=== PATIENT | male | born 1965 | race Caucasian/White ===

== ENCOUNTER 2020-11-24 10:26 | Outpatient (REF) | payer SELFPAY ==
[2020-11-24 12:47] LABS: Cholesterol 215 mg/dL; HDL Cholesterol 55 mg/dL; LDL Cholesterol Calculated 139 mg/dl; Triglycerides 108 mg/dL
== END 2020-11-24 10:27 | disposition home or self-care (01) ==
LOC: HO.LNP 10:26
PROVIDERS: Visit Provider Internal Medicine
DX: E78.6 Lipoprotein deficiency (principal)
CPT/HCPCS: 80061

== ENCOUNTER 2021-05-07 06:32 | Day surgery (SDC) | payer OTHER, SELFPAY ==
[2021-05-03 14:09] VITALS: BMI 29.5
--- NOTE | 2021-05-06 09:49 | P.CONAN_ITS ---
Documented by User: Karmen Rodriguez NP 05/06/21 09:49 HPI - Anesthesia Eval Consult details Narrative: 55yo M for Colonoscopy [facility] Past Medical History Medical History (Updated 05/03/21 @ 13:55 by Sarah Tierney RN) Family history of colon cancer Surgical History Surgical History (Updated 05/03/21 @ 13:54 by Sarah Tierney RN) H/O colonoscopy Social History Social History Patient Tobacco Use Status: Never used Tobacco Use of substances other than those prescribed or required for medical reasons: No Have you been hit, kicked, punched, or otherwise hurt by someone within the past year? If so, by whom?: No Are you DNR?: No Advance Directives: No Advance Directives Information Provided: Yes (informational brochure mailed) Advance Directives on File: No Recently lost weight without trying: No Nutrition Risks: No Nutritional Risk Poor oral hygiene: No Meds Allergies Allergy/AdvReac Type Severity Reaction Status Date / Time shellfish derived Allergy Severe Hives Verified 05/03/21 14:09 tree nut Allergy Severe Anaphylaxis Verified 05/03/21 14:08 Home Medications Medication Instructions Recorded Confirmed Last Taken Type No Known Home Meds 05/03/21 05/03/21 Unknown History Exam Exam Date and Time: May 06, 2021 0949 Height,Weight and Vital Signs: Height 5 ft 8.5 in Weight 89.358 kg Assessment and Plan Assessment Anesthesia Assessment: Chart Reviewed Documented by User: Corrie Kincaid MD 05/07/21 07:00 [facility] Past Medical History Medical History (Updated 05/03/21 @ 13:55 by Sarah Tierney RN) Family history of colon cancer Family History Family history of problems with anesthesia: No Surgical History Surgical History (Updated 05/03/21 @ 13:54 by Sarah Tierney RN) H/O colonoscopy History of Problems with Anesthesia: No Social History Social History Patient Tobacco Use Status: Never used Tobacco Use of substances other than those prescribed or required for medical reasons: No Have you been hit, kicked, punched, or otherwise hurt by someone within the past year? If so, by whom?: No Are you DNR?: No Advance Directives: No Advance Directives Information Provided: Yes (informational brochure mailed) Advance Directives on File: No Recently lost weight without trying: No Nutrition Risks: No Nutritional Risk Poor oral hygiene: No Meds Allergies Allergy/AdvReac Type Severity Reaction Status Date / Time shellfish derived Allergy Severe Hives Verified 05/03/21 14:09 tree nut Allergy Severe Anaphylaxis Verified 05/03/21 14:08 Home Medications Medication Instructions Recorded Confirmed Last Taken Type No Known Home Meds 05/03/21 05/03/21 Unknown History Exam Airway Mallampati Class: II TM Dist: >3cm Neck ROM: Full Heart: rrr Lungs: cta Assessment and Plan Assessment Anesthesia Assessment: Anesthesia Plan Discussed and Chart Reviewed Final Anesthetic Review Family History of Problems with Anesthesia: No History of Problems with Anesthesia: No NPO: Yes ASA Class: II Final Preanesthetic Review: No Changes in Pt Med Stat, Meds/Allgs Chart Reviewed and Consent Obtained/Reviewed Patient Risk: Intermediate Procedure Risk: Intermediate Anesthetic Plan Anesthetic Plan: MAC: Disposition: Standard PACU
[2021-05-07 06:50] VITALS: PULSE 69; RESP 18; TEMP 36.7; O2SAT 96
[2021-05-07] MEDS: Lactated Ringers 1,000 ML 100 ML IVCONT (07:05)
[2021-05-07 08:28] VITALS: BP 112/71; PULSE 74; RESP 16; TEMP 36.3; O2SAT 96
--- NOTE | 2021-05-07 08:33 | P.BOP_ITS ---
Brief Operative Note Date of Service: 05/07/21 Pre-op diagnosis: Screening Post-op diagnosis: other (Colon polyps) Procedure: Colonoscopy to cecum and TI with hot snare and cold snare polypectomies Surgeon: Bryce Bower Anesthesia: MAC Was an Sewing Machine Operator Plastic Zipper used for this Procedure?: No Estimated blood loss (mL): 2.0 Pathology: other (A. Ascending colon polyps) Condition: stable Disposition: PACU
[2021-05-07 08:45] VITALS: BP 120/74; PULSE 72; RESP 16; TEMP 36.3; O2SAT 96
--- NOTE | 2021-05-07 09:09 | OP_ITS ---
SURGEON: Bryce Bower MD INDICATIONS: The patient presents for evaluation of colorectal cancer screening, family history of colon cancer, and personal history of tubular adenoma of the colon. Full consent has been obtained from him for this, including risks of bleeding and perforation. PREOPERATIVE DIAGNOSIS: POSTOPERATIVE DIAGNOSIS: PROCEDURE PERFORMED: ESTIMATED BLOOD LOSS: COMPLICATIONS: ANESTHESIA: Medication used, monitored anesthesia care. ASSISTANTS: SPECIMENS: PREOPERATIVE DIAGNOSES: Colorectal cancer screening, family history of colon cancer, personal history of tubular adenoma of the colon. POSTOPERATIVE DIAGNOSES: Colorectal cancer screening, family history of colon cancer, personal history of tubular adenoma of the colon, colon polyps, mild sigmoid diverticulosis, small internal hemorrhoids. PROCEDURES PERFORMED: Colonoscopy to the cecum and terminal ileum with snare polypectomy. DESCRIPTION OF PROCEDURE: The patient was placed in the left lateral decubitus position. The digital rectal exam revealed no abnormalities. The EpiVax video pediatric colonoscope was entered into the rectum and advanced easily to the cecum. Once in the cecum, I did identify normal-appearing cecal pouch with appendiceal orifice and a normal-appearing ileocecal valve. The terminal ileum was cannulated and appeared normal. Scope was withdrawn back in the colon. The entire cecum and ileocecal valve appeared normal. The scope was slowly withdrawn assessing all mucosal surfaces carefully. Preparation was excellent. In the proximal ascending colon was a flat approximately 5 mm grossly adenomatous polyp, which was snared and removed with cold snare. Post polypectomy, there was no sign of any residual polyp nor bleeding. Just distal to this on a fold was an approximately 10 to 12 mm polyp, which may have been a serrated polyp given its gross appearance. This was removed entirely in piecemeal fashion with a hot snare polypectomy. Post polypectomy, there was no sign of any residual polyp nor bleeding. All pieces were recovered by suction and placed in the same container as the previous polyp. I did not visualize any other polyps, colitis, nor angiodysplasia. There was a mild amount of sigmoid diverticulosis. In the rectum, scope was retroflexed visualizing internal hemorrhoids, but no other pathology. The rectal mucosa appeared normal. The scope was straightened and withdrawn from the patient. He tolerated the procedure well and was returned to the recovery area in stable condition. IMPRESSION: 1. Colon polyps, status post snare polypectomy. 2. Mild sigmoid diverticulosis. 3. Small internal hemorrhoids. PLAN: Results of the pathology will be checked. If the larger polyp is a serrated polyp or adenomatous polyp, I would then recommend a repeat colonoscopy within 3 years. If the larger polyp is only hyperplastic tissue, I would then recommend a repeat colonoscopy in 5 years. He was advised not to use any aspirin and NSAIDs for 1 week. MD JUDITH Prieto/YASIR / [id number]
== END 2021-05-07 09:19 | disposition home or self-care (01) ==
PROVIDERS: PCP Internal Medicine; Visit Provider Internal Medicine
PROC: 0DJD8ZZ Inspection of Lower Intestinal Tract, Via Natural or Artificial Opening Endoscopic (ICD-10-PCS; CPT 45378; principal; 2021-05-07 07:30)
DX: Z12.11 Encounter for screening for malignant neoplasm of colon (principal); Z80.0 Family history of malignant neoplasm of digestive organs; Z86.010 Personal history of colon polyps; D12.2 Benign neoplasm of ascending colon; K57.30 Diverticulosis of large intestine without perforation or abscess without bleeding; K64.8 Other hemorrhoids
CPT/HCPCS: 45385; 88305

== ENCOUNTER 2021-05-25 10:23 | Outpatient (REF) | payer OTHER, SELFPAY ==
[2021-05-25 10:28] LABS: MANUAL DIFF FLAG NO
[2021-05-25 10:58] LABS: Imm Gran Abs Auto 0.02 X10*3/uL (0.00-0.03); Imm Gran Pct Auto 0.3 % (0.0-0.4); Mean Platelet Volume 11.9 fL (9.4-12.4)
[2021-05-25 11:03] LABS: Appearance Urine CLEAR; Color Urine YELLOW; Glucose Urine UA NEG (NEG); Leukocyte Esterase Urine NEG (NEG); Nitrite Urine NEG (NEG); PH 5.5 (5.0-8.0); Specific Gravity - Urine 1.025 (1.005-1.025); Urine Blood NEG (NEG); Urine Ketones >=80 MG/DL (NEG); Urine Protein TRACE MG/DL (NEG-TRACE)
[2021-05-25 11:09] LABS: Basophils Absolute Auto 0.1 X10*3/uL (0.0-0.2); Basophils Percent Auto 0.8 % (0-2); Eosinophils Absolute Auto 0.3 X10*3/uL (0.0-0.4); Eosinophils Percent Auto 3.3 % (0-4); Lymphocytes Absolute Auto 2.6 X10*3/uL (1.2-4.9); Mean Corpuscular HGB Conc 31.8 g/dl (31.0-36.0); Mean Corpuscular Hemoglobin 27.2 pg (27.0-33.0); Mean Corpuscular Volume 85.6 fL (80.0-98.0); Monocytes Percent Auto 12.7 % (2-11); Neutrophils Absolute Auto 3.7 x10*3/uL (2.0-8.3); Neutrophils Percent Auto 48.9 % (45-73); Platelet Count 215 X10*3/uL (160-400); Red Blood Count 5.14 X10*6/uL (4.60-5.80); Red Cell Distribution Width 14.4 % (11.0-16.0); White Blood Count 7.6 X10*3/uL (4.8-10.8)
[2021-05-25 11:37] LABS: Alanine Aminotransferase 12 U/L (0-40); Albumin Level 4.2 g/dL (3.5-5.0); Alkaline Phosphatase 59 U/L (39-117); Anion Gap 17 (12-20); Aspartate Amino Transferase 11 U/L (5-37); Bilirubin Total 0.8 mg/dL (0.0-1.0); Blood Urea Nitrogen 17 mg/dL (9-16); Calcium 8.9 mg/dL (8.4-10.2); Carbon Dioxide 23 mmol/L (22-29); Chloride 106 mmol/L (96-108); Cholesterol 279 mg/dL; Estimated Glomerular Filt Rate 57; Glucose Fasting 101 mg/dL (60-99); HDL Cholesterol 46 mg/dL; LDL Cholesterol Calculated 211 mg/dl; Potassium 3.8 mmol/L (3.3-5.1); Sodium 142 mmol/L (135-145); Total Protein 6.9 g/dL (6.5-8.0); Triglycerides 113 mg/dL
[2021-05-25 12:04] LABS: PSA,Total (Free>4and<10) 1.38 ng/mL (0.00-4.00)
[2021-05-25 13:47] LABS: Reflex LDLD? No
== END 2021-05-25 10:24 | disposition home or self-care (01) ==
LOC: HO.LNP 10:23
PROVIDERS: PCP Internal Medicine; Visit Provider Internal Medicine
DX: Z00.00 Encounter for general adult medical examination without abnormal findings (principal); R73.09 Other abnormal glucose; E78.6 Lipoprotein deficiency
CPT/HCPCS: 80053; 80061; 81003; 84153; 85025

== ENCOUNTER 2021-08-31 10:48 | Outpatient (REF) | payer OTHER, SELFPAY ==
[2021-08-31 12:01] LABS: Cholesterol 313 mg/dL; HDL Cholesterol 53 mg/dL; LDL Cholesterol Calculated 236 mg/dl; Triglycerides 124 mg/dL
== END 2021-08-31 10:49 | disposition home or self-care (01) ==
LOC: HO.LNP 10:48
PROVIDERS: PCP Internal Medicine; Visit Provider Internal Medicine
DX: E78.6 Lipoprotein deficiency (principal)
CPT/HCPCS: 80061

== ENCOUNTER 2022-06-02 10:55 | Outpatient (REF) | payer OTHER, SELFPAY ==
[2022-06-02 11:00] LABS: MANUAL DIFF FLAG NO
[2022-06-02 11:07] LABS: Basophils Absolute Auto 0.1 X10*3/uL (0.0-0.2); Basophils Percent Auto 0.7 % (0-2); Eosinophils Absolute Auto 0.4 X10*3/uL (0.0-0.4); Eosinophils Percent Auto 4.8 % (0-4); Hematocrit 44.8 % (42.0-52.0); Hemoglobin 13.9 g/dl (14.0-18.0); Imm Gran Abs Auto 0.01 X10*3/uL (0.00-0.03); Imm Gran Pct Auto 0.1 % (0.0-0.4); Lymphocytes Absolute Auto 2.9 X10*3/uL (1.2-4.9); Mean Corpuscular Hemoglobin 26.6 pg (27.0-33.0); Mean Corpuscular Volume 85.7 fL (80.0-98.0); Mean Platelet Volume 11.1 fL (9.4-12.4); Neutrophils Percent Auto 47.4 % (45-73); Platelet Count 203 X10*3/uL (160-400); Red Blood Count 5.23 X10*6/uL (4.60-5.80); Red Cell Distribution Width 14.3 % (11.0-16.0); White Blood Count 8.4 X10*3/uL (4.8-10.8)
[2022-06-02 11:13] LABS: Appearance Urine Clear; Color Urine Yellow; Glucose Urine UA Negative (Negative); Leukocyte Esterase Urine Negative (Negative); Nitrite Urine Negative (Negative); PH 5.5 (5.0-9.0); Urine Blood Negative (Negative); Urine Ketones Negative (Negative); Urine Protein Negative (Neg-Trace)
[2022-06-02 11:18] LABS: Alanine Aminotransferase 28 U/L (0-40); Alkaline Phosphatase 72 U/L (39-117); Anion Gap 12 (12-20); Aspartate Amino Transferase 17 U/L (5-37); Bacteria Urine None Seen (None Seen); Bilirubin Total 0.5 mg/dL (0.0-1.0); Blood Urea Nitrogen 18 mg/dL (9-16); Calcium 8.9 mg/dL (8.4-10.2); Carbon Dioxide 28 mmol/L (22-29); Chloride 107 mmol/L (96-108); Cholesterol 169 mg/dL; Estimated Glomerular Filt Rate 57; Glucose Fasting 115 mg/dL (60-99); HDL Cholesterol 55 mg/dL; Hyaline Casts Urine 0-2 /LPF (0-2); LDL Cholesterol Calculated 99 mg/dl; Potassium 3.9 mmol/L (3.3-5.1); RBC Urine 0-2 /HPF (0-2); Sodium 143 mmol/L (135-145); Squamous Epithelial Cell Urine 0-2 /HPF (0-2); Total Protein 6.6 g/dL (6.5-8.0); Triglycerides 76 mg/dL; WBC Urine 0-5 /HPF (0-5)
[2022-06-02 11:38] LABS: PSA,Total (Free>4and<10) 1.15 ng/mL (0.00-4.00)
== END 2022-06-02 10:56 | disposition home or self-care (01) ==
LOC: HO.LNP 10:55
PROVIDERS: Visit Provider Internal Medicine
DX: Z00.00 Encounter for general adult medical examination without abnormal findings (principal); Z12.5 Encounter for screening for malignant neoplasm of prostate
CPT/HCPCS: 80053; 80061; 81001; 84153; 85025

== ENCOUNTER 2023-07-06 11:01 | Outpatient (REF) | payer OTHER, SELFPAY ==
[2023-07-06 11:05] LABS: MANUAL DIFF FLAG NO
[2023-07-06 12:11] LABS: Basophils Absolute Auto 0.1 X10*3/uL (0.0-0.2); Basophils Percent Auto 0.9 % (0-2); Eosinophils Absolute Auto 0.3 X10*3/uL (0.0-0.4); Eosinophils Percent Auto 3.7 % (0-4); Hematocrit 46.1 % (42.0-52.0); Hemoglobin 14.8 g/dl (14.0-18.0); Imm Gran Abs Auto 0.02 X10*3/uL (0.00-0.03); Imm Gran Pct Auto 0.3 % (0.0-0.4); Lymphocytes Percent Auto 37.8 % (20-40); Mean Corpuscular HGB Conc 32.1 g/dl (31.0-36.0); Mean Corpuscular Hemoglobin 27.5 pg (27.0-33.0); Mean Corpuscular Volume 85.5 fL (80.0-98.0); Mean Platelet Volume 11.8 fL (9.4-12.4); Monocytes Absolute Auto 0.8 X10*3/uL (0.1-1.2); Monocytes Percent Auto 9.6 % (2-11); Neutrophils Absolute Auto 3.7 x10*3/uL (2.0-8.3); Neutrophils Percent Auto 47.7 % (45-73); Platelet Count 219 X10*3/uL (160-400); Red Blood Count 5.39 X10*6/uL (4.60-5.80); Red Cell Distribution Width 13.9 % (11.0-16.0); White Blood Count 7.8 X10*3/uL (4.8-10.8)
[2023-07-06 12:35] LABS: Alanine Aminotransferase 6 U/L (0-40); Albumin Level 4.4 g/dL (3.5-5.0); Alkaline Phosphatase 70 U/L (39-117); Anion Gap 21 (12-20); Aspartate Amino Transferase 13 U/L (5-37); Bilirubin Total 0.7 mg/dL (0.0-1.0); Blood Urea Nitrogen 11 mg/dL (9-16); Calcium 9.6 mg/dL (8.4-10.2); Carbon Dioxide 22 mmol/L (22-29); Chloride 102 mmol/L (96-108); Cholesterol 239 mg/dL (<200); Estimated Glomerular Filt Rate 52; Glucose Random 103 mg/dL (60-115); HDL Cholesterol 39 mg/dL (>40); LDL Cholesterol Calculated 168 mg/dL (<100); Potassium 3.5 mmol/L (3.3-5.1); Sodium 141 mmol/L (135-145); Total Protein 7.7 g/dL (6.5-8.0); Triglycerides 161 mg/dL (<150)
[2023-07-06 12:44] LABS: PSA,Total (Free>4and<10) 2.63 ng/mL (0.00-4.00)
[2023-07-06 12:50] LABS: Appearance Urine Clear; Color Urine Dark Yellow; Glucose Urine UA Negative (Negative); Leukocyte Esterase Urine Negative (Negative); Nitrite Urine Negative (Negative); Specific Gravity - Urine 1.025 (1.005-1.025); UMIC TRIGGER UACC YES; Urine Blood Negative (Negative); Urine Ketones >=160 mg/dL (Negative); Urine Protein 30 (1+) mg/dL (Neg-Trace)
[2023-07-06 13:16] LABS: Bacteria Urine None Seen (None Seen); Granular Casts Urine Present; Squamous Epithelial Cell Urine 0-2 /HPF (0-2); WBC Urine 0-5 /HPF (0-5)
== END 2023-07-06 11:02 | disposition home or self-care (01) ==
LOC: HO.LNP 11:01
PROVIDERS: Visit Provider Internal Medicine
DX: Z00.00 Encounter for general adult medical examination without abnormal findings (principal); Z12.5 Encounter for screening for malignant neoplasm of prostate; E78.6 Lipoprotein deficiency
CPT/HCPCS: 80053; 80061; 81001; 84153; 85025

== ENCOUNTER 2023-08-21 11:26 | Outpatient (REF) | payer OTHER, SELFPAY ==
[2023-08-21 11:54] LABS: Appearance Urine Clear; Color Urine Yellow; Glucose Urine UA Negative (Negative); Leukocyte Esterase Urine Negative (Negative); Nitrite Urine Negative (Negative); Urine Blood Negative (Negative); Urine Ketones Negative (Negative); Urine Protein Negative (Neg-Trace)
[2023-08-21 12:00] LABS: Bacteria Urine None Seen (None Seen); Hyaline Casts Urine 0-2 /LPF (0-2); RBC Urine 0-2 /HPF (0-2); Squamous Epithelial Cell Urine 0-2 /HPF (0-2); WBC Urine 0-5 /HPF (0-5)
[2023-08-21 12:11] LABS: Cholesterol 162 mg/dL (<200); HDL Cholesterol 48 mg/dL (>40); LDL Cholesterol Calculated 80 mg/dL (<100); Triglycerides 171 mg/dL (<150)
[2023-08-21 12:22] LABS: PSA,Total (Free>4and<10) 2.92 ng/mL (0.00-4.00)
== END 2023-08-21 11:27 | disposition home or self-care (01) ==
LOC: HO.LNP 11:26
PROVIDERS: Visit Provider Internal Medicine
DX: Z12.5 Encounter for screening for malignant neoplasm of prostate (principal); R97.20 Elevated prostate specific antigen [PSA]; E78.6 Lipoprotein deficiency; R31.29 Other microscopic hematuria
CPT/HCPCS: 80061; 81001; 84153

== ENCOUNTER 2023-09-18 11:23 | Outpatient (REF) | payer OTHER, SELFPAY ==
[2023-09-18 12:12] LABS: PSA,Total (Free>4and<10) 2.01 ng/mL (0.00-4.00)
== END 2023-09-18 11:24 | disposition home or self-care (01) ==
LOC: HO.LNP 11:23
PROVIDERS: Visit Provider Internal Medicine
DX: Z12.5 Encounter for screening for malignant neoplasm of prostate (principal); R97.20 Elevated prostate specific antigen [PSA]
CPT/HCPCS: 84153

== ENCOUNTER 2024-04-18 10:44 | Outpatient (REF) | payer OTHER, SELFPAY ==
[2024-04-18 12:51] LABS: PSA,Total (Free>4and<10) 2.35 ng/mL (0.00-4.00)
== END 2024-04-18 10:45 | disposition home or self-care (01) ==
LOC: HO.LNP 10:44
PROVIDERS: Visit Provider Internal Medicine
DX: R97.20 Elevated prostate specific antigen [PSA] (principal); Z12.5 Encounter for screening for malignant neoplasm of prostate
CPT/HCPCS: 84153

== ENCOUNTER 2024-07-05 12:32 | Outpatient (REF) | payer OTHER, SELFPAY ==
[2024-07-05 12:34] LABS: MANUAL DIFF FLAG NO
[2024-07-05 12:54] LABS: Basophils Absolute Auto 0.1 X10*3/uL (0.0-0.2); Basophils Percent Auto 0.7 % (0-2); Eosinophils Absolute Auto 0.2 X10*3/uL (0.0-0.4); Eosinophils Percent Auto 2.4 % (0-4); Hematocrit 47.5 % (42.0-52.0); Hemoglobin 14.8 g/dl (14.0-18.0); Imm Gran Abs Auto 0.03 X10*3/uL (0.00-0.03); Imm Gran Pct Auto 0.4 % (0.0-0.4); Lymphocytes Absolute Auto 2.3 X10*3/uL (1.2-4.9); Lymphocytes Percent Auto 31.4 % (20-40); Mean Corpuscular HGB Conc 31.2 g/dl (31.0-36.0); Mean Corpuscular Hemoglobin 26.6 pg (27.0-33.0); Mean Corpuscular Volume 85.4 fL (80.0-98.0); Mean Platelet Volume 11.5 fL (9.4-12.4); Monocytes Percent Auto 13.3 % (2-11); Neutrophils Absolute Auto 3.8 x10*3/uL (2.0-8.3); Neutrophils Percent Auto 51.8 % (45-73); Platelet Count 223 X10*3/uL (160-400); Red Blood Count 5.56 X10*6/uL (4.60-5.80); Red Cell Distribution Width 14.2 % (11.0-16.0); White Blood Count 7.4 X10*3/uL (4.8-10.8)
[2024-07-05 13:29] LABS: Appearance Urine Cloudy; Color Urine Dark Yellow; Glucose Urine UA Negative (Negative); Leukocyte Esterase Urine Negative (Negative); Nitrite Urine Negative (Negative); PH 5.5 (5.0-9.0); Specific Gravity - Urine 1.025 (1.005-1.025); UMIC TRIGGER UACC YES; Urine Blood Negative (Negative); Urine Ketones 40 mg/dL (Negative); Urine Protein 30 (1+) mg/dL (Neg-Trace)
[2024-07-05 13:37] LABS: Bacteria Urine None Seen (None Seen); Hyaline Casts Urine 0-2 /LPF (0-2); RBC Urine 0-2 /HPF (0-2); Squamous Epithelial Cell Urine 0-2 /HPF (0-2); WBC Urine 0-5 /HPF (0-5)
[2024-07-05 13:38] LABS: Alanine Aminotransferase 12 U/L (0-40); Albumin Level 4.2 g/dL (3.5-5.0); Alkaline Phosphatase 75 U/L (39-117); Anion Gap 17 (12-20); Aspartate Amino Transferase 17 U/L (5-37); Bilirubin Total 0.9 mg/dL (0.0-1.0); Blood Urea Nitrogen 15 mg/dL (9-16); Carbon Dioxide 24 mmol/L (22-29); Chloride 105 mmol/L (96-108); Cholesterol 241 mg/dL (<200); Estimated Glomerular Filt Rate 55; Glucose Fasting 104 mg/dL (60-99); HDL Cholesterol 48 mg/dL (>40); LDL Cholesterol Calculated 168 mg/dL (<100); Potassium 3.8 mmol/L (3.3-5.1); Sodium 142 mmol/L (135-145); Total Protein 7.4 g/dL (6.5-8.0); Triglycerides 125 mg/dL (<150)
[2024-07-05 13:59] LABS: PSA,Total (Free>4and<10) 3.37 ng/mL (0.00-4.00)
== END 2024-07-05 12:33 | disposition home or self-care (01) ==
LOC: HO.LNP 12:32
PROVIDERS: Visit Provider Internal Medicine
DX: Z00.00 Encounter for general adult medical examination without abnormal findings (principal); Z12.5 Encounter for screening for malignant neoplasm of prostate
CPT/HCPCS: 80053; 80061; 81001; 84153; 85025

== ENCOUNTER 2024-07-22 15:14 | Outpatient (REF) | payer OTHER, SELFPAY ==
[2024-07-22 15:35] LABS: Cholesterol 185 mg/dL (<200); HDL Cholesterol 39 mg/dL (>40); LDL Cholesterol Calculated 123 mg/dL (<100); Triglycerides 118 mg/dL (<150)
--- OUTSIDE RECORDS SUMMARY | 2024-07-22 17:12 | XMS_ITS ---
Author Organization Jose G Schaefer MD Address [address] [place], [place] [id number] Care Team Providers Care Automation Controls Specialist Name Role Phone Jose G Schaefer Primary Care Provider [phone] ALLERGIES Allergen (clinical drug ingredient) Drug/Non Drug Allergy documented on EMR Reaction Allergy Type Onset Date Status raw eggs (uncoded) hives Allergy A ctive lobster, shellfish (uncoded) hives Allergy Active Nuts (uncoded) anaphylaxis Allergy Act ana RESULTS Component Value Reference Range Notes Lipid Panel (Not yet reviewe d by provider) Interpretation: Performing Lab:[facility], [address] [place] [phone] Notes/Report: Triglycerides 118 <150 mg/dL Desirable Triglyceride: less than 150 mg/dL Borderline High Triglyceride 150-199 mg/dL High Triglyceride: 200-499 mg/dL Very High Triglyceride: greater than or equal to 5OO mg/dL Cholesterol 185 <200 mg/dL Desirable Cholesterol: less than 200 mg/dL Borderline High Cholesterol: 200-239 mg/dL High Cholesterol: greater than 239 mg/dL LDL Cholesterol Calculated 123 <100 mg/dL Desirable LDL: less than 100 mg/dL Near Optimal/Above Optimal LDL: 110-129 mg/dL Borderline High LDL: 130-159 mg/dL High LDL: 160-189 mg/dL Very High LDL: greater than or equal to 190 mg/dL HDL Cholesterol 39 >40 mg/dL Desirable HDL: greater than 40 mg/dL Note: This HDL assay may give artificially low results in patients with liver disease. Occult Blood, Stool, Guaiac Reviewed date:07/22/2024 03:47:48 PM Interpretation:Negative Performing Lab: Notes/Report: Negative Occult Blood, Stool, Guaiac Neg REASON FOR VISIT annual visit/ must see PSA MEDICATIONS Medication SIG (Take, Route, Frequency, Duration) Notes Start Date End Date Status Atorvastatin Calcium 20 MG TAKE 1 TABLET BY MOUTH EVERY DAY Active SOCIAL HISTORY Tobacco Use: Social History Observation Description Date Details (start date - stop date) Never Smoker NA - NA Sex Assigned At : Social History Observation Description Sex Assigned At Unknown Tobacco Use/Smoking Question Answer Notes Patient is a nonsmoker Additional Findings: Tobacco Non-User Cu rrent non-smoker, currently using no form of tobacco Alcohol Screen Question Answer Notes Did you have a drink containing alcohol in the p ast year? No Points 0 Interpretation Negative PROBLEMS Problem Type ICD Code Onset Dates Problem Status W/U Status Risk SNOMED Code Notes Problem Elevated cholesterol (E78.00) Active confirmed 02592120 VITAL SIGNS BMI 30.25 kg/m2 07/22/2024 Blood pressure systolic 160 mm Hg 07/22/19 25 Blood pressure diastolic 66 mm Hg 025 Height 68 in 07/22/2024 Weight 199 lbs 07/22/2024 Encounters Encounter Location Date Provider Diagnosis Jose G Schaefer MD [address] [place] [address] [address] [place], [place] [phone] 07/22/2024 Jose G Schaefer Elevated cholesterol E78.00 ; Annual physical exam Z00.00 ; PSA elevation R97.20 ; Colon cancer screening Z12.11 and Depression screening Z13.31 ASSESSMENTS Encounter Date Diagnosis Assessment Notes Treatment Notes Treatment Clinical Notes 07/22/2024 Elevated cholesterol (ICD-10 - E78.00) stable, will continue current regiment 07/22/2024 Annual physical exam (ICD-10 - Z00.00) labs reviewed and discussed with patient 07/22/2024 PSA elevation (ICD-10 - R97.20) will continue to monitor, labs pending 07/22/2024 Colon cancer screening (ICD-10 - Z12.11) guaiac negative 07/22/2024 Depression screening (ICD-10 - Z13.31) negative screen PLAN OF TREATMENT Medication Medication Name Sig Start Date Stop Date Notes Atorvastatin Calcium 20 MG TAKE 1 TABLET BY MOUTH EVERY DAY Treatment Notes Assessment Notes Elevated cholesterol stable, will contin ue current regiment Annual physical exam labs reviewed and d iscussed with patient PSA elevation will continue to mon itor, labs pending Colon cancer screening guaiac negative Depression screening negative screen Pending Test Test Name Order Date Lipid Panel 07/22/2024 Future Test Test Name Order Date Lipid Panel 10/20/2024 PSA,Total (Free>4and<10) 10/20/2024 Next Appt Details Follow Up: 3 Months, Reason: Provider Name:Jose G hilton, 10/28/2024 07:00:00 AM, [address] [place] [address], [address], [phone], Provider Name:Jose G hilton, 11/05/2024 08:30:00 AM, [address] [place] [address], [phone], Provider Name:Jose G hilton, 07/15/2025 07:15:00 AM, [address] [place] [address], [address], [phone], Provider Name:Jose G hilton, 07/24/2025 02:30:00 PM, [address] [place] [address], [address], [phone], Progress Notes * Examination Category Sub-Category Detail Notes General Examination GENERAL APPEARANCE: well dev eloped, well nourished, in no acute distress HEAD: normocephalic, atrau matic EYES: pupils equal, round, reactive to light and accommodation, sclera non-icteric EARS: normal THROAT: clear NECK/THYROID: neck supple, full ra nge of motion, no cervical lymphadenopathy, no bruits HEART: regular rate and rhy thm, S1, S2 normal, no murmurs LUNGS: clear to auscultatio n bilaterally ABDOMEN: soft, nontender, non distended, bowel sounds present, normal, no organomegaly , no masses palpable NEUROLOGIC: nonfocal, motor stre ngth normal upper and lower extremities, sensory exam intact SKIN: warm and dry, no gerardo picious lesions EXTREMITIES: no clubbing, cyanosi s, or edema MALE GENITOURINARY: circumcised , no dany ticular mass , testes descended bilaterally RECTAL EXAM: normal tone, no exte rnal hemorrhoids, no masses palpable, prostate normal, stool guaiac negative ORAL CAVITY: mucosa moist History and Physical Notes * HPI (History of Present Illness) Category Sub-Category Detail Notes Depression Screening PHQ-9 Little inte rest or pleasure in doing things: Not at all Feeling down, depressed, or hopeless: No t at all Trouble falling or staying asleep, or sl eeping too much: Not at all Feeling tired or having little energy: N ot at all Poor appetite or overeating: Not at all Feeling bad about yourself o r that you are a failure, or have let yourself or your family down: Not at all Trouble concentrating on thi ngs, such as reading the newspaper or watching television: Not at all Moving or speaking so slowly that other people could have noticed; or the opposite, being so fidgety or restless that you have been moving around a lot more than usual: Not at all Thoughts that you would be b nelsy off or of hurting yourself in some way: Not at all Total Score: 0 Interpretation and Intervention Depression Rohan dubon Findings: Negative Follow-Up for Depression: : review of PH Q-9 found negative result, no follow-up needed SDOH Questions SDOH Questions In the past year have you been worried about losing housing?: No In the past year have you or any family members you live with been unable to get any of the following when it was really needed? Check all that apply:: None Communication Needs Communication Needs Does the patient have a hearing impairment: No Does the patient have a vision impairmen t?: No Does the patient have a cognition impair ment?: No
--- OUTSIDE RECORDS SUMMARY | 2024-07-22 17:13 | XMS_ITS ---
Author Organization Jose G Schaefer MD Address [address] [place] [phone] Care Team Providers Care Coil Machine Operator Name Role Phone Jose G Schaefer Primary Care Provider RESULTS Component Value Reference Range Notes PSA,Total (Free>4and<10) Reviewed date:04/18/2024 01:04:10 PM Interpretation: Performing Lab:[facility], [place], [address] [place] [phone] Notes/Report: PSA,Total (Free>4and<10) 2.35 0.00-4.00 ng/mL A Free PSA was not performed: The percentage of Free PSA can be used to enhance the differentiation of prostate cancer from benign prostatic disease in subjects whose PSA levels are between 4.0 and 10.0 ng/mL. For subjects whose PSA levels are below 4.0 or above 10.0 ng/mL, the risk of prostate cancer is determined on the basis of the PSA alone. Therefore the % Free PSA is recommended only for those subjects whose PSA levels are between 4.0 and 10.0 ng/mL. PSA methodology: Tatum Alinity i Chemiluminescent Microparticle Immunoassay (CMIA) REASON FOR VISIT 6 mon repeat PSA MEDICATIONS Medication SIG (Take, Route, Frequency, Duration) Notes Start Date End Date Status Atorvastatin Calcium 20 MG TAKE 1 TABLET BY MOUTH EVERY DAY for 90 Active Encounters Encounter Location Date Provider Diagnosis Jose G Schaefer MD [address] [place] [address] [address] [place] [phone] 04/18/2024 Jose G Schaefer Rising PSA level R97.20 ASSESSMENTS Encounter Date Diagnosis Assessment Notes Treatment Notes Treatment Clinical Notes 04/18/2024 Rising PSA level (ICD-10 - R97.20) PLAN OF TREATMENT Next Appt Details Provider Name:Jose G hilton, 10/28/2024 07:00:00 AM, [address] [place] [address], [address], [place], [phone], Provider Name:Jose G hilton, 11/05/2024 08:30:00 AM, [address] [place] [address], [address], [place], [phone], Provider Name:Jose G hilton, 07/15/2025 07:15:00 AM, [address] [place] [address], [address], [place], [phone], Provider Name:Jose G hilton, 07/24/2025 02:30:00 PM, [address] [place] [address], [address], [place], [phone],
--- OUTSIDE RECORDS SUMMARY | 2024-07-22 17:13 | XMS_ITS | Patient Health Record ---
Author Organization Jose G Schaefer MD Address [address] [place], [place] [id number] Care Team Providers Care Routeman Name Role Phone Jose G Schaefer Primary Care Provider ALLERGIES Allergen (clinical drug ingredient) Drug/Non Drug Allergy documented on EMR Reaction Allergy Type Onset Date Status raw eggs (uncoded) hives Allergy A ctive lobster, shellfish (uncoded) hives Allergy Active Nuts (uncoded) anaphylaxis Allergy Act ana RESULTS Component Value Reference Range Notes Urinalysis and Microscopic Reviewed date:08/21/2023 12:52:46 PM Interpretation: Performing Lab:[facility], [address] [place] [phone] Notes/Report: Color Urine Yellow Appearance Urine Clear PH 6.0 5.0-9.0 Glucose Urine UA Negative Negative mg/dL Urine Blood Negative Negative Specific [place] - Urine 1.020 1.005-1.025 Urine Protein Negative Neg-Trace mg/dL Urine Ketones Negative Negative mg/dL Nitrite Urine Negative Negative Leukocyte Esterase Urine Negative Negative RBC Urine 0-2 0-2 /HPF WBC Urine 0-5 0-5 /HPF Squamous Epithelial Cell Urine 0-2 0-2 /HPF Bacteria Urine None Seen None Seen Hyaline Casts Urine 0-2 0-2 /LPF Lipid Panel Reviewed date:08/21/2023 12:34:33 PM Interpretation: Performing Lab:[facility], [address] [place] [phone] Notes/Report: Triglycerides 171 <150 mg/dL Desirable Triglyceride: less than 150 mg/dL Borderline High Triglyceride 150-199 mg/dL High Triglyceride: 200-499 mg/dL Very High Triglyceride: greater than or equal to 5OO mg/dL Cholesterol 162 <200 mg/dL Desirable Cholesterol: less than 200 mg/dL Borderline High Cholesterol: 200-239 mg/dL High Cholesterol: greater than 239 mg/dL LDL Cholesterol Calculated 80 <100 mg/dL Desirable LDL: less than 100 mg/dL Near Optimal/Above Optimal LDL: 110-129 mg/dL Borderline High LDL: 130-159 mg/dL High LDL: 160-189 mg/dL Very High LDL: greater than or equal to 190 mg/dL HDL Cholesterol 48 >40 mg/dL Desirable HDL: greater than 40 mg/dL Note: This HDL assay may give artificially low results in patients with liver disease. PSA,Total (Free>4and<10) Reviewed date:08/24/2023 02:03:01 PM Interpretation:see back 08-24-23 Performing Lab:[facility], [address] [place] [phone] Notes/Report: PSA,Total (Free>4and<10) 2.92 0.00-4.00 ng/mL A Free PSA was not [...] Tatum Alinity i Chemiluminescent Microparticle Immunoassay (CMIA) Hold Green Gel Reviewed date:09/18/2023 12:32:10 PM Interpretation: Performing Lab:[facility], [address] [place] [phone] Notes/Report: Hold Green Gel See Note Specimen held untested for 24 hours; Call to request Chemistry testing. PSA,Total (Free>4and<10) Reviewed date:09/18/2023 12:44:18 PM Interpretation: Performing Lab:[facility], [address] [place] [phone] Notes/Report: PSA,Total (Free>4and<10) 2.01 0.00-4.00 ng/mL A Free PSA was not [...] between 4.0 and 10.0 ng/mL. PSA methodology: Vimtynity i Chemiluminescent Microparticle Immunoassay (CMIA) PSA,Total (Free>4and<10) Reviewed date:04/18/2024 01:04:10 PM Interpretation: Performing Lab:[address] [phone] Notes/Report: PSA,Total (Free>4and<10) 2.35 0.00-4.00 ng/mL A [...] between 4.0 and 10.0 ng/mL. PSA methodology: Vimtynity i Chemiluminescent Microparticle Immunoassay (CMIA) PSA,Total (Free>4and<10) (No t yet reviewed by provider) Interpretation:see back 07-22-24 Performing Lab:[address] [phone] Notes/Report: PSA,Total (Free>4and<10) 3.37 0.00-4.00 ng/mL A Free PSA was not [...] Tatum Alinity i Chemiluminescent Microparticle Immunoassay (CMIA) Complete Blood Count Auto Di ff Reviewed date:07/05/2024 04:21:41 PM Interpretation: Performing Lab:[facility], [address] [place] [phone] Notes/Report: White Blood Count 7.4 4.8-10.8 X10*3/uL Red Blood Count 5.56 4.60-5.80 X10*6/uL Hemoglobin 14.8 14.0-18.0 g/dl Hematocrit 47.5 42.0-52.0 % Mean Corpuscular Volume 85.4 80.0-98.0 fL Mean Corpuscular Hemoglobin 26.6 27.0-33.0 pg Mean Corpuscular HGB Conc 31.2 31.0-36.0 g/dl Red Cell Distribution Width 14.2 11.0-16.0 % Platelet Count 223 160-400 X10*3/uL Mean Platelet Volume 11.5 9.4-12.4 fL Neutrophils Percent Auto 51.8 45-73 % Imm Gran Pct Auto 0.4 0.0-0.4 % Lymphocytes Percent Auto 31.4 20-40 % Monocytes Percent Auto 13.3 2-11 % Eosinophils Percent Auto 2.4 0-4 % Basophils Percent Auto 0.7 0-2 % NRBC Pct Auto 0.0 0.0-0.2 /100WBC Neutrophils Absolute Auto 3.8 2.0-8.3 x10*3/u L Imm Gran Abs Auto 0.03 0.00-0.03 X10*3/uL Lymphocytes Absolute Auto 2.3 1.2-4.9 X10*3/u L Monocytes Absolute Auto 1.0 0.1-1.2 X10*3/uL Eosinophils Absolute Auto 0.2 0.0-0.4 X10*3/u L Basophils Absolute Auto 0.1 0.0-0.2 X10*3/uL NRBC Abs Auto 0.000 0.0-0.012 X10*3/uL Comprehensive [place]. Panel Fa st Reviewed date:07/05/2024 04:22:48 PM Interpretation: Performing Lab:[facility], [address] [place] [phone] Notes/Report: Sodium 142 135-145 mmol/L Potassium 3.8 3.3-5.1 mmol/L Chloride 105 96-108 mmol/L Carbon Dioxide 24 22-29 mmol/L Anion Gap 17 12-20 Blood Urea Nitrogen 15 9-16 mg/dL Creatinine 1.33 0.5-1.4 mg/dL Estimated Glomerular Filt Rate 55 Chronic Kidney Disease: Estimated GFR < 60 mL/min/1.73m2 Severe Kidney Disease: Estimated GFR < 15 mL/min/1.73m2 Glucose Fasting 104 60-99 mg/dL A fasting glucose from 100-125 mg/dl is considered impaired (pre-diabetes). Calcium 9.0 8.4-10.2 mg/dL Bilirubin Total 0.9 0.0-1.0 mg/dL Aspartate Amino Transferase 17 5-37 U/L Alanine Aminotransferase 12 0-40 U/L Total Protein 7.4 6.5-8.0 g/dL Albumin Level 4.2 3.5-5.0 g/dL Alkaline Phosphatase 75 39-117 U/L Lipid Panel Reviewed date:07/05/2024 04:18:22 PM Interpretation: Performing Lab:[facility], [address] [place] [phone] Notes/Report: Triglycerides 125 <150 mg/dL Desirable Triglyceride: less than 150 mg/dL Borderline High Triglyceride 150-199 mg/dL High Triglyceride: 200-499 mg/dL Very High Triglyceride: greater than or equal to 5OO mg/dL Cholesterol 241 <200 mg/dL Desirable Cholesterol: less than 200 mg/dL Borderline High Cholesterol: 200-239 mg/dL High Cholesterol: greater than 239 mg/dL LDL Cholesterol Calculated 168 <100 mg/dL Desirable LDL: less than 100 mg/dL Near Optimal/Above Optimal LDL: 110-129 mg/dL Borderline High LDL: 130-159 mg/dL High LDL: 160-189 mg/dL Very High LDL: greater than or equal to 190 mg/dL HDL Cholesterol 48 >40 mg/dL Desirable HDL: greater than 40 mg/dL Note: This HDL assay may give artificially low results in patients with liver disease. UA ClnCatch+Micro w/rflx Cul t Reviewed date:07/05/2024 04:21:58 PM Interpretation: Performing Lab:[facility], [address] [place] [phone] Notes/Report: Urine, Clean Catch Color Urine Dark Yellow Appearance Urine Cloudy PH 5.5 5.0-9.0 Glucose Urine UA Negative Negative mg/dL Urine Blood Negative Negative Specific [place] - Urine 1.025 1.005-1.025 Urine Protein 30 (1+) Neg-Trace mg/dL Urine Ketones 40 Negative mg/dL Nitrite Urine Negative Negative Leukocyte Esterase Urine Negative Negative RBC Urine 0-2 0-2 /HPF WBC Urine 0-5 0-5 /HPF Squamous Epithelial Cell Urine 0-2 0-2 /HPF Bacteria Urine None Seen None Seen Hyaline Casts Urine 0-2 0-2 /LPF Lipid Panel (Not yet reviewe d by provider) Interpretation: Performing Lab:[facility], [address] [place] [phone] Notes/Report: Triglycerides 118 <150 mg/dL Desirable Triglyceride: [...] Occult Blood, Stool, Guaiac Neg REASON FOR REFERRAL Reason rising PSA level Diagnosis 1 Rising PSA level (R9 7.20) Referral Organization Jose G Schaefer MD Referring Provider First Name Jose G Referring Provider Last Name Olive Referring Provider Speciality Internal M edicine Referred Provider KAY KRAFT Referred Provider Specialty Urology General Notes Megan Constantino 10:03:52 AM EST > info faxed Megan Constantino 09/18/2023 03:15:22 PM EST > patient is aware of appt Megan Constantino 12/08/2023 11:58:50 AM EDT > see note form Urology note from 12-08-2023 patint doesn't want an futher worlup for prostate cancer screening. [facility] Referral was maked addressed due to this info. Referral Priority Routine Referral Appointment Date 10/02/2023 MEDICATIONS Medication SIG (Take, Route, Frequency, Duration) Notes Start Date End Date Status Atorvastatin Calcium 20 MG TAKE 1 TABLET BY MOUTH EVERY DAY Active IMMUNIZATIONS Vaccine Route Administration Date Status Comme nts Covid Vaccine Unknown 09/18/2020 Administered Pfizer Covid Vaccine Unknown 10/09/2020 Administered Pfizer SARS-COV-2 Pfizer Unknown 06/25/2021 Administered Fluarix Quadrivalent Unknown 07/08/2019 Refused Fluarix Quadrivalent Unknown 05/25/2020 Refused SOCIAL HISTORY Tobacco Use: Social History Observation [...] Status Risk SNOMED Code Notes Problem Elevated cholesterol/high density lipoprotein ratio (E78.6) Active confirmed 643994554 Problem Elevated cholesterol (E78.00) Active confirmed 47398621 VITAL SIGNS Blood pressure diastolic 66 mm Hg 07/22/2024 Height 68 in 07/22/2024 Blood pressure systolic 160 mm Hg 07/22/2024 Weight 199 lbs 07/22/2024 BMI 30.25 kg/m2 07/22/2024 Encounters Encounter Location Date Provider Diagnosis Jose G Schaefer MD [address] [place] [address] [place] [id number] 07/22/2024 Jose G Schaefer Elevated cholesterol E78.00 ; Annual physical exam Z00.00 ; PSA elevation R97.20 ; Colon cancer screening Z12.11 and Depression screening Z13.31 Jose G Schaefer MD [address] [place] [address] [address] [place] [id number] 08/21/2023 Jose G Schaefer Elevated cholesterol/high density lipoprotein ratio E78.6 ; PSA elevation R97.20 and Microscopic hematuria R31.29 Jose G Schaefer MD [address] [place] [id number] 07/05/2024 Jose G Schaefer Blood tests for routine general physical examination Z00.00 Jose G Schaefer MD [address] [place] [address] Drive [address] [place] [id number] 09/18/2023 Jose G Schaefer Elevated PSA R97.20 Jose G Schaefer MD [address] [place] [address] [id number] 04/18/2024 Jose G Schaefer Rising PSA level R97.20 Jose G Schaefer MD [address] [place] [address] [id number] 08/24/2023 Jose G Schaefer Rising PSA level R97.20 ASSESSMENTS Encounter Date Diagnosis Assessment Notes Treatment Notes Treatment Clinical Notes 07/22/2024 Annual physical exam (ICD-10 - Z00.00) labs reviewed and discussed with patient 07/22/2024 Elevated cholesterol (ICD-10 - E78.00) stable, will continue current regiment 08/21/2023 Elevated cholesterol/high density lipoprotein ratio (ICD-10 - E78.6) 08/21/2023 PSA elevation (ICD-10 - R97.20) 07/05/2024 Blood tests for routine general physical examination (ICD-10 - Z00.00) 09/18/2023 Elevated PSA (ICD-10 - R97.20) 04/18/2024 Rising PSA level (ICD-10 - R97.20) 08/24/2023 Rising PSA level (ICD-10 - R97.20) will refer to urology dr kraft 07/22/2024 PSA elevation (ICD-10 - R97.20) will continue to monitor, labs pending 08/21/2023 Microscopic hematuria (ICD-10 - R31.29) 07/22/2024 Colon cancer screening (ICD-10 - Z12.11) guaiac negative 07/22/2024 Depression screening (ICD-10 - Z13.31) negative screen PLAN OF TREATMENT Pending Test Test Name Order Date Electrocardiogram (EKG) 08/23/2019 Lipid Panel 07/22/2024 PSA,Total (Free>4and<10) 07/05/2024 Future Test Test Name Order Date Lipid Panel 10/20/2024 PSA,Total (Free>4and<10) 10/20/2024 Next Appt Details Provider Name:Jose Gmaryellen Cooper ier, 10/28/2024 07:00:00 AM, [address] [place] [address], [address], [phone], Provider Name:Jose G Cooper ier, 11/05/2024 08:30:00 AM, [address] [place] [address], [address], [phone], Provider Name:Jose G Cooper ier, 07/15/2025 07:15:00 AM, [address] [place] [address], [place] [address], [place], [place], [phone], Provider Name:Jose Gmaryellen Cooper ier, 07/24/2025 02:30:00 PM, [address] [place] [address], [place] [address], [place], [place], [phone], Insurance Providers Payer Name Payer Address Payer Phone Subscriber Number Group Number Insured Name Patient Relationship to Insured Coverage Start Date Coverage End Date [employer] [address] [address] [place] [phone] [id number] Kushal Martinez Self - patient is the insured MEDICAL (GENERAL) HISTORY Medical History History ICD Code last colonoscopy was in 2017 . every 5 years. had 3 already: Colonoscopy 2020 repeat 3-5 yrs awaiting path tubular adenoma 2020
--- OUTSIDE RECORDS SUMMARY | 2024-07-22 17:13 | XMS_ITS ---
Author Organization Jose G Schaefer MD Address [address] [place], [place] [id number] Care Team Providers Care Engineering Laboratory Technician Name Role Phone Jose G Schaefer Primary Care Provider RESULTS Component Value Reference Range Notes PSA,Total (Free>4and<10) (No t yet reviewed by provider) Interpretation:see back 07-22-24 Performing Lab:[address] [phone] Notes/Report: PSA,Total (Free>4and<10) 3.37 0.00-4.00 ng/mL A [...] ff Reviewed date:07/05/2024 04:21:41 PM Interpretation: Performing Lab:[address] [phone] Notes/Report: White Blood Count 7.4 4.8-10.8 X10*3/uL [...] NRBC Abs Auto 0.000 0.0-0.012 X10*3/uL Comprehensive [place]. Panel Fa st Reviewed date:07/05/2024 04:22:48 PM Interpretation: Performing Lab:[facility], [address] [place] [phone] Notes/Report: Sodium 142 135-145 mmol/L Potassium 3.8 [...] Panel Reviewed date:07/05/2024 04:18:22 PM Interpretation: Performing Lab:[address] [phone] Notes/Report: Triglycerides 125 <150 mg/dL Desirable Triglyceride: [...] t Reviewed date:07/05/2024 04:21:58 PM Interpretation: Performing Lab:[address] [phone] Notes/Report: Urine, Clean Catch Color Urine Dark Yellow Appearance Urine Cloudy PH 5.5 5.0-9.0 Glucose Urine UA Negative Negative mg/dL Urine Blood Negative Negative Specific [place] - Urine 1.025 1.005-1.025 Urine Protein 30 (1+) Neg-Trace mg/dL Urine Ketones 40 Negative mg/dL Nitrite Urine Negative Negative Leukocyte Esterase Urine Negative Negative RBC Urine 0-2 0-2 /HPF WBC Urine 0-5 0-5 /HPF Squamous Epithelial Cell Urine 0-2 0-2 /HPF Bacteria Urine None Seen None Seen Hyaline Casts Urine 0-2 0-2 /LPF REASON FOR VISIT yearly fasting labs Encounters Encounter Location Date Provider Diagnosis Jose G Schaefer MD [address] [place] [phone] 07/05/2024 Jose G Schaefer Blood tests for routine general physical examination Z00.00 ASSESSMENTS Encounter Date Diagnosis Assessment Notes Treatment Notes Treatment Clinical Notes 07/05/2024 Blood tests for routine general physical examination (ICD-10 - Z00.00) PLAN OF TREATMENT Pending Test Test Name Order Date PSA,Total (Free>4and<10) 07/05/2024 Next Appt Details Provider Name:Jose G hilton, 10/28/2024 07:00:00 AM, [address] [place] [address], [phone], Provider Name:Jose G hilton, 11/05/2024 08:30:00 AM, [address] [place] [address], [phone], Provider Name:Jose G hilton, 07/15/2025 07:15:00 AM, [address] [place] [address], [phone], Provider Name:Jose G hilton, 07/24/2025 02:30:00 PM, [address] [place] [address], [phone],
--- OUTSIDE RECORDS SUMMARY | 2024-07-22 17:13 | XMS_ITS | Patient Health Record ---
Author Organization [facility] Address [address] [place] [address] Care Team Providers Care Failure Analysis Technician Name Role Phone Jose G Schaefer MD Primary Care Provider Bryce Moreau [phone] ALLERGIES Allergen (clinical drug ingredient) Drug/Non Drug Allergy documented on EMR Reaction Allergy Type Onset Date Status nuts,seafood (uncoded) Unknown Allergy Active REASON FOR REFERRAL No Information IMMUNIZATIONS Vaccine Route Administration Date Status Comme nts Influenza Unknown 04/07/2021 Administered SOCIAL HISTORY Sex Assigned At : Social History Observation Description Sex Assigned At Unknown PROBLEMS Problem Type ICD Code Onset Dates Problem Status W/U Status Risk SNOMED Code Notes Problem History of adenomatous polyp of colon (Z86.010) Active confirmed 548256611 Problem Preprocedural examination (Z01.818) Active confirmed 14727828 Problem Family history of colon cancer (Z80.0) Active confirmed 439801963 Problem Encounter for screening for malignant neoplasm of colon (Z12.11) Active confirmed 399050972 Problem Encounter for screening for malignant neoplasm of rectum (Z12.12) Active confirmed Screening fo r malignant neoplasm of rectum (282694572) Problem Diverticulosis of colon (K57.30) Active confirmed Diverticulosi s of colon (518363738) PLAN OF TREATMENT Future Test Test Name Order Date COLONOSCOPY 10/28/2015 COLONOSCOPY 03/31/2021 Next Appt Details Provider Name:Bryce Bower , 09/25/2024 04:00:00 PM, [address], [address], [place], [phone], Insurance Providers Payer Name Payer Address Payer Phone Subscriber Number Group Number Insured Name Patient Relationship to Insured Coverage Start Date Coverage End Date [facility] [address] RON GARCIA [id number] EZEKIEL SUAREZ Self - patient is the insured MEDICAL (GENERAL) HISTORY Medical History History ICD Code Tubular adenoma removed in --F/U colonoscopies were neg. in 1995, 2004, 07/2010 Denies ID,DM,CVA,Lung disease,renal dise ase Colonoscopy in 01/2016--1 tubular adenoma and 1 hyperplastic polyp removed Surgical History Surgery Date(Month/Year)
== END 2024-07-22 15:15 | disposition home or self-care (01) ==
LOC: HO.LNP 15:14
PROVIDERS: Visit Provider Internal Medicine
DX: E78.00 Pure hypercholesterolemia, unspecified (principal)
CPT/HCPCS: 80061

== ENCOUNTER 2024-10-28 07:00 | Outpatient (REF) | payer OTHER, SELFPAY ==
[2024-10-28 10:49] LABS: Cholesterol 188 mg/dL (<200); HDL Cholesterol 51 mg/dL (>40); LDL Cholesterol Calculated 114 mg/dL (<100); Triglycerides 118 mg/dL (<150)
[2024-10-28 11:10] LABS: PSA,Total (Free>4and<10) 3.54 ng/mL (0.00-4.00)
--- OUTSIDE RECORDS SUMMARY | 2024-10-28 11:41 | XMS_ITS | Patient Health Record ---
Author Organization Jose G Schaefer MD Address [address] [place], [place] [id number] Care Team Providers Care Manager Transportation Name Role Phone Jose G Schaefer Primary Care Provider Allergies Allergen (clinical drug ingredient) Drug/Non Drug Allergy documented on EMR Reaction Allergy Type Onset Date Status raw eggs (uncoded) hives Allergy A ctive lobster, shellfish (uncoded) hives Allergy Active Nuts (uncoded) anaphylaxis Allergy Act ana Results Component Value Reference Range Notes PSA,Total (Free>4and<10) Reviewed date:04/18/2024 01:04:10 PM Interpretation: Performing Lab:[facility], [address] [place] [phone] Notes/Report: PSA,Total (Free>4and<10) 2.35 0.00-4.00 ng/mL A [...] ff Reviewed date:07/05/2024 04:21:41 PM Interpretation: Performing Lab:[facility], [address] [place] [phone] Notes/Report: White Blood Count 7.4 4.8-10.8 X10*3/uL [...] NRBC Abs Auto 0.000 0.0-0.012 X10*3/uL Comprehensive [place]. Panel Fa st Reviewed date:07/05/2024 04:22:48 PM Interpretation: Performing Lab:[facility], [address] [place] [phone] Notes/Report: Sodium 142 135-145 mmol/L Potassium 3.8 [...] Panel Reviewed date:07/05/2024 04:18:22 PM Interpretation: Performing Lab:[address] [phone] Notes/Report: Triglycerides 125 <150 mg/dL Desirable Triglyceride: [...] patients with liver disease. PSA,Total (Free>4and<10) Reviewed date:07/22/2024 06:02:50 PM Interpretation:see back 07-22-24 Performing Lab:[address] [phone] Notes/Report: PSA,Total (Free>4and<10) 3.37 0.00-4.00 ng/mL A [...] Tatum Alinity i Chemiluminescent Microparticle Immunoassay (CMIA) UA ClnCatch+Micro w/rflx Cul t Reviewed date:07/05/2024 04:21:58 PM Interpretation: Performing Lab:[facility], [address] [place] [phone] Notes/Report: Urine, Clean Catch Color Urine Dark Yellow Appearance Urine Cloudy PH 5.5 5.0-9.0 Glucose Urine UA Negative Negative mg/dL Urine Blood Negative Negative Specific [place] - Urine 1.025 1.005-1.025 Urine Protein 30 (1+) Neg-Trace mg/dL Urine Ketones 40 Negative mg/dL Nitrite Urine Negative Negative Leukocyte Esterase Urine Negative Negative RBC Urine 0-2 0-2 /HPF WBC Urine 0-5 0-5 /HPF Squamous Epithelial Cell Urine 0-2 0-2 /HPF Bacteria Urine None Seen None Seen Hyaline Casts Urine 0-2 0-2 /LPF Occult Blood, Stool, Guaiac Reviewed date:07/22/2024 03:47:48 PM Interpretation:Negative Performing Lab: Notes/Report: Negative Occult Blood, Stool, Guaiac Neg Lipid Panel Reviewed date:07/22/2024 05:45:39 PM Interpretation: Performing Lab:[facility], [address] [place] [phone] Notes/Report: Triglycerides 118 <150 mg/dL Desirable Triglyceride: [...] in patients with liver disease. PSA,Total (Free>4and<10) (No t yet reviewed by provider) Interpretation: Performing Lab:[facility], [address] [place] [phone] Notes/Report: PSA,Total (Free>4and<10) 3.54 0.00-4.00 ng/mL A [...] [place] Alinity i Chemiluminescent Microparticle Immunoassay (CMIA) Lipid Panel Reviewed date:10/28/2024 11:05:37 AM Interpretation: Performing Lab:[facility], [address] [place] [phone] Notes/Report: Triglycerides 118 <150 mg/dL Desirable Triglyceride: [...] low results in patients with liver disease. Reason For Referral No Information Medications Medication SIG (Take, Route, Frequency, Duration) Notes Start Date End Date Status Atorvastatin Calcium 20 MG TAKE 1 TABLET BY MOUTH EVERY DAY for 90 Active Immunizations Vaccine Route Administration Date Status Comme nts Covid Vaccine Unknown 09/18/2020 Administered Pfizer Covid Vaccine Unknown 10/09/2020 Administered Pfizer SARS-COV-2 Pfizer Unknown 06/25/2021 Administered Fluarix Quadrivalent Unknown 07/08/2019 Refused Fluarix Quadrivalent Unknown 05/25/2020 Refused Social History Tobacco Use: Social History Observation Description Date Details (start date - stop date) Never Smoker NA - NA Tobacco Use/Smoking Question Answer Notes Patient is a nonsmoker Additional Findings: Tobacco Non-User Cu rrent non-smoker, currently using no form of tobacco Alcohol Screen Question Answer Notes Did you have a drink containing alcohol in the p ast year? No Points 0 Interpretation Negative Problems Problem Type SNOMED Code ICD Code Onset Dates Problem Status W/U Status Risk Notes Problem 347966627 Elevated cholesterol/high density lipoprotein ratio (E78.6) Active confirmed Problem 00213111 Elevated cholesterol (E78.00) Active confirmed Vital Signs Blood pressure diastolic 66 mm Hg 07/22/2024 Height 68 in 07/22/2024 Blood pressure systolic 160 mm Hg 07/22/2024 Weight 199 lbs 07/22/2024 BMI 30.25 kg/m2 07/22/2024 Encounters Encounter Location Date Provider Diagnosis Jose G Schaefer MD [address] [place] [id number] 04/18/2024 Jose G Schaefer Rising PSA level R97.20 Jose G Schaefer MD [address] [place] [id number] 07/05/2024 Jose G Schaefer Blood tests for routine general physical examination Z00.00 Jose G Schaefer MD [address] [place] [address] Drive [address] [place] [id number] 10/28/2024 Jose G Schaefer Elevated cholesterol E78.00 and PSA elevation R97.20 Jose G Schaefer MD [address] [place] [address] Drive [address] [place] [id number] 07/22/2024 Jose G Schaefer Elevated cholesterol E78.00 ; Annual physical exam Z00.00 ; PSA elevation R97.20 ; Colon cancer screening Z12.11 and Depression screening Z13.31 Assessments Encounter Date Diagnosis (ICD Code) Assessment Notes Treatment Notes Treatment Clinical Notes Section Notes 04/18/2024 Rising PSA level (ICD-10 - R97.20) 07/05/2024 Blood tests for routine general physical examination (ICD-10 - Z00.00) 10/28/2024 Elevated cholesterol (ICD-10 - E78.00) 07/22/2024 Elevated cholesterol (ICD-10 - E78.00) stable, will continue current regiment 07/22/2024 Annual physical exam (ICD-10 - Z00.00) labs reviewed and discussed with patient 10/28/2024 PSA elevation (ICD-10 - R97.20) 07/22/2024 PSA elevation (ICD-10 - R97.20) will continue to monitor, labs pending 07/22/2024 Colon cancer screening (ICD-10 - Z12.11) guaiac negative 07/22/2024 Depression screening (ICD-10 - Z13.31) negative screen Plan Of Treatment Pending Test Test Name Order Date Electrocardiogram (EKG) 08/23/2019 PSA,Total (Free>4and<10) 10/28/2024 Next Appt Details Provider Name:Jose G hilton, 11/05/2024 08:30:00 AM, [address] [place] [address], [address], [phone], Provider Name:Jose G francisr, 07/15/2025 07:15:00 AM, [address] [place] [address], [address], [phone], Provider Name:Jose G francisr, 07/24/2025 02:30:00 PM, [address] [place] [address], [phone], Insurance Providers Payer Name Payer Address Payer Phone Subscriber Number Group Number Insured Name Patient Relationship to Insured Coverage Start Date Coverage End Date [employer] [address] [address] [place], [place] [phone] [id number] Kushal Martinez Self - patient is the insured Medical (General) History Medical History History ICD Code last colonoscopy was in 2017 . every 5 years. had 3 already: Colonoscopy 2020 repeat 3-5 yrs awaiting path tubular adenoma 2020
--- OUTSIDE RECORDS SUMMARY | 2024-10-28 11:41 | XMS_ITS ---
Author Organization [facility] Address [address] [place] [phone] Care Team Providers Care Sales Apprentice Name Role Phone Jose G Schaefer MD Primary Care Provider Bryce Moreau [phone] Allergies Allergen (clinical drug ingredient) Drug/Non Drug Allergy documented on EMR Reaction Allergy Type Onset Date Status nuts,seafood (uncoded) Unknown Allergy Active REASON FOR VISIT Patient presents today for a COLON SCREENING Medications Medication SIG (Take, Route, Frequency, Duration) Notes Start Date End Date Status Atorvastatin Calcium 20 MG Oral for 90 Days Active Immunizations Vaccine Route Administration Date Status Comme nts Influenza Unknown 09/25/2024 Refused Problems Problem Type SNOMED Code ICD Code Onset Dates Problem Status W/U Status Risk Notes Problem Serrated polyp of colon (563670213) Serrated polyp of colon (K63.5) Active confirmed Vital Signs Temperature 97.5 degrees Fahrenheit 09/26/19 25 Blood pressure systolic 001 mm Hg 09/26/19 25 Blood pressure diastolic 01 mm Hg 025 Height 68.5 in 09/25/2024 Weight 212.8 lbs 09/25/2024 BMI 31.88 kg/m2 09/25/2024 Procedures Procedure Date Ordered Date Performed Result Body Sit e COLONOSCOPY 09/25/2024 N/A Encounters Encounter Location Date Provider Diagnosis [facility] [address] [place] [phone] 09/25/2024 Bryce Bower History of adenomato us polyp of colon Z86.010 ; Preprocedural examination Z01.818 ; Family history of colon cancer Z80.0 ; Encounter for screening for malignant neoplasm of colon Z12.11 and Serrated polyp of colon K63.5 Assessments Encounter Date Diagnosis (ICD Code) Assessment Notes Treatment Notes Treatment Clinical Notes Section Notes 09/25/2024 History of adenomatous polyp of colon (ICD-10 - Z86.010) 09/25/2024 Preprocedural examination (ICD-10 - Z01.818) 09/25/2024 Family history of colon cancer (ICD-10 - Z80.0) 09/25/2024 Encounter for screening for malignant neoplasm of colon (ICD-10 - Z12.11) 09/25/2024 Serrated polyp of colon (ICD-10 - K63.5) Plan Of Treatment Pending Test Test Name Order Date COLONOSCOPY 09/25/2024 Next Appt Details Follow Up: prn, Reason: Provider Name:Bryce Bower , 01/24/2025 07:30:00 AM, [address] [place] [address], [phone], Progress Notes * EZEKIEL SUAREZ MDOB:[birth year] (59 yo M)Acc No.[id number]:09/25/2024 Progress Notes Patient:?EZEKIEL SUAREZ Provider:?Bryce Bower MD :1965???Age:59 Y???Sex:Male Amadeo e:09/25/2024 Address:[address] [place], [place] [phone] Pcp:Jose G Schaefer MD Subjective: * Chief Complaints: * ???Patient presents today fo r a COLON SCREENING * Medical History:? * Surgical History:?No Surgica l History documented. * Hospitalization/Major Diagno stic Procedure:?No Hospitalization History. * Family History:?Father: dece ased, dx at age 46, diagnosed with Colon cancer.?Mother: alive, diagnosed with Heart disease.?Paternal uncle: alive, diagnosed with Colon polyps.? The patient's father of colon cancer and liver cancer at the age of 46. His paternal uncle has a history of colon polyps.? Father had colon cancer that spread to liver cancer. * Social History:?Tobacco Use:?Tobacco Use/Smoking?Are you a: nonsmoker.?Drugs/Alcohol:?Alcohol Screen?Points: 1, Interpretation: Negative.?Miscellaneous:?Marital status: . 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 ???Nonsmoker; no sig alcohol. * Medications:?TakingAtorvasta tin Calcium 20 MG Tablet Oral Taking Atorvastatin Calcium 20 MG Tablet Oral * Allergies:?nuts,seafoodyes[A llergies Verified] Objective: * Vitals:?Wt:212.8lbs, Ht: 68. 5 in, BMI:31.88Index, BP:001/01mm Hg, Temp:97.5, Wt- k.53. Assessment: * Assessment: 1.?Preprocedural examination - Z01.818 (Primary)???2.?History of adenomatous polyp of colon - Z86.010???3.?Family history of colon cancer - Z80.0???4.?Encounter for screening for malignant neoplasm of colon - Z12.11???5.?Serrated polyp of colon - K63.5??? Plan: * Treatment: 2.?Family history of colon cancer?Procedure: COLONOSCOPY* with MAC 3.?Encounter for screening for malignant neoplasm of colon?Procedure: COLONOSCOPY* with MAC 4.?Serrated polyp of colon?Procedure: COLONOSCOPY* with MAC * Immunizations:? Influenza (Not administered - Refused: Patient decision) * Procedure Codes:?49559 DIAGN OSTIC [id number] COLORECTAL CA SCREEN DOC MIT0698B TOBACCO NON-ISRTI0365 BP SCR NOT PRFRM REC REASON [id number] RCMND FLW-UP 10 YRS DOCD * Preventive Medicine:? ??Counseling:?Care goal follow-up plan:?Above Normal BMI Follow-up?Dietary management education, guidance, and counseling,?BMI management provided?Yes.? * Follow Up:?prn * * Sign off status: Completed true * Provider:?Bryce Bower MD Date:? 025 Generated for Latesha gonzalez/Vikram/eTsaviitting on:?10/28/2024 11:41 AM EDT
--- OUTSIDE RECORDS SUMMARY | 2024-10-28 11:41 | XMS_ITS ---
Author Organization Jose G Schaefer MD Address [address] [place], [place] [phone] Care Team Providers Care Manager Of Community Relations Name Role Phone Jose G Schaefer Primary Care Provider Results Component Value Reference Range Notes Complete Blood Count Auto Di ff Reviewed date:07/05/2024 04:21:41 PM Interpretation: Performing Lab:[facility], [address] [place] [phone] Notes/Report: White Blood Count 7.4 4.8-10.8 X10*3/uL [...] NRBC Abs Auto 0.000 0.0-0.012 X10*3/uL Comprehensive [place]. Panel Fa st Reviewed date:07/05/2024 04:22:48 PM Interpretation: Performing Lab:[address] [phone] Notes/Report: Sodium 142 135-145 mmol/L Potassium 3.8 [...] Panel Reviewed date:07/05/2024 04:18:22 PM Interpretation: Performing Lab:[address] [phone] Notes/Report: Triglycerides 125 <150 mg/dL Desirable Triglyceride: [...] date:07/22/2024 06:02:50 PM Interpretation:see back 07-22-24 Performing Lab:[address] [phone] Notes/Report: PSA,Total (Free>4and<10) 3.37 0.00-4.00 ng/mL A [...] t Reviewed date:07/05/2024 04:21:58 PM Interpretation: Performing Lab:[facility], [address] [place] [phone] Notes/Report: Urine, Clean Catch Color Urine Dark Yellow Appearance Urine Cloudy PH 5.5 5.0-9.0 Glucose Urine UA Negative Negative mg/dL Urine Blood Negative Negative Specific [place] - Urine 1.025 1.005-1.025 Urine Protein 30 [...] Date Provider Diagnosis Jose G Schaefer MD [address] [place] [address] [place] [phone] 07/05/2024 Jose G Schaefer Blood tests for routine general physical examination Z00.00 Assessments Encounter Date Diagnosis (ICD Code) Assessment Notes Treatment Notes Treatment Clinical Notes Section Notes 07/05/2024 Blood tests for routine general physical examination (ICD-10 - Z00.00) Plan Of Treatment Next Appt Details Provider Name:Jose G hilton, 11/05/2024 08:30:00 AM, [address] [place] [address], [address], [phone], Provider Name:Jose G hilton, 07/15/2025 07:15:00 AM, [address] [place] [address], [address] [place] [address], [phone], Provider Name:Jose G hilton, 07/24/2025 02:30:00 PM, [address] [place] [address], [address] [place] [address], [phone], Progress Notes * Kushal MARTINEZDOB:1965 (59 yo M)Acc No.[id number]:07/05/2024 Progress Note Patient:?DANIELA Kushal Provider:?Jose G Schaefer MD :1965???Age:59 Y???Sex:Male Amadeo e:07/05/2024 [facility] Subjective: * Chief Complaints: * ???1. Yearly fasting labs. * Medical History:? Objective: * Vitals:? Assessment: * Assessment: 1.?Blood tests for routine g eneral physical examination - Z00.00 (Primary)??? Plan: * Treatment: * Procedure Codes:?37573 VENIP UNCT, ROUTINE* * * The named appointment provid er may or may not be the originator of this progress note, and it is not deemed complete until electronically signed by the appointment provider. Sign off status: Pending * Provider:?Jose G Schaefer MD Date:?1 09/05/2023 Generated for Latesha gonzalez/Vikram/Debbieitting on:?10/28/2024 11:40 AM EDT
--- OUTSIDE RECORDS SUMMARY | 2024-10-28 11:41 | XMS_ITS | Patient Health Record ---
Author Organization [facility] Address [address] [place] [phone] Care Team Providers Care Connie Scratcher Name Role Phone Jose G Schaefer MD Primary Care Provider Bryce Moreau [phone] Allergies Allergen (clinical drug ingredient) Drug/Non Drug Allergy documented on EMR Reaction Allergy Type Onset Date Status nuts,seafood (uncoded) Unknown Allergy Active Reason For Referral No Information Medications Medication SIG (Take, Route, Frequency, Duration) Notes Start Date End Date Status Atorvastatin Calcium 20 MG Oral for 90 Days Active Immunizations Vaccine Route Administration Date Status Comme nts Influenza Unknown 04/07/2021 Administered Influenza Unknown 09/25/2024 Refused Problems Problem Type SNOMED Code ICD Code Onset Dates Problem Status W/U Status Risk Notes Problem 785156691 Encounter for screening for malignant neoplasm of colon (Z12.11) Active confirmed Problem 779216974 History of adenomatous polyp of colon (Z86.010) Active confirmed Problem Screening for malignant neoplasm of rectum (279240858) Encounter for screening for malignant neoplasm of rectum (Z12.12) Active confirmed Problem 27336973 Preprocedural examination (Z01.818) Active confirmed Problem 910604891 Family history o f colon cancer (Z80.0) Active confirmed Problem Diverticulosis of colon (433385443) Diverticulosis of colon (K57.30) Active confirmed Problem Serrated polyp of colon (882048531) Serrated polyp of colon (K63.5) Active confirmed Vital Signs Temperature 97.5 degrees Fahrenheit 09/25/2024 Blood pressure diastolic 01 mm Hg 09/25/2024 Height 68.5 in 09/25/2024 Blood pressure systolic 001 mm Hg 09/25/2024 Weight 212.8 lbs 09/25/2024 BMI 31.88 kg/m2 09/25/2024 Procedures Procedure Date Ordered Date Performed Result Body Sit e COLONOSCOPY 09/25/2024 N/A Encounters Encounter Location Date Provider Diagnosis [facility] [address] [place] [address] 09/25/2024 Bryce Bower History of adenomato us [...] Test Test Name Order Date COLONOSCOPY 09/25/2024 Future Test Test Name Order Date COLONOSCOPY 10/28/2015 COLONOSCOPY 03/31/2021 Next Appt Details Provider Name:Bryce Bower , 01/24/2025 07:30:00 AM, [address] [place] [address] , [place], [place], [phone], Insurance Providers Payer Name Payer Address Payer Phone Subscriber Number Group Number Insured Name Patient Relationship to Insured Coverage Start Date Coverage End Date [facility] [address] [place], [place] [id number] EZEKIEL SUAREZ Self - patient is the insured Medical (General) History Medical History History ICD Code Tubular adenoma removed in --F/U colonoscopies were neg. in 1995, 2004, 07/2010 Denies [place],DM,CVA,Lung disease,renal dise ase Colonoscopy in 01/2016--1 tubular adenoma and 1 hyperplastic polyp removed high cholesterol Surgical History Surgery Date(Month/Year)
--- OUTSIDE RECORDS SUMMARY | 2024-10-28 11:42 | XMS_ITS ---
Author Organization Jose G Schaefer MD Address [address] [place], [place] [id number] Care Team Providers Care Filler Feeder Name Role Phone Jose G Schaefer Primary Care Provider Allergies Allergen (clinical drug ingredient) Drug/Non Drug Allergy documented on EMR Reaction Allergy Type Onset Date Status raw eggs (uncoded) hives Allergy A ctive lobster, shellfish (uncoded) hives Allergy Active Nuts (uncoded) anaphylaxis Allergy Act ana Results Component Value Reference Range Notes Occult Blood, Stool, Guaiac Reviewed date:07/22/2024 03:47:48 PM Interpretation:Negative Performing Lab: Notes/Report: Negative Occult Blood, Stool, Guaiac Neg Lipid Panel Reviewed date:07/22/2024 05:45:39 PM Interpretation: Performing Lab:[facility], [address] [place] [phone] Notes/Report: Triglycerides 118 <150 mg/dL Desirable Triglyceride: [...] low results in patients with liver disease. REASON FOR VISIT annual visit/ must see PSA Medications Medication SIG (Take, Route, Frequency, Duration) Notes Start Date End Date Status Atorvastatin Calcium 20 MG TAKE 1 TABLET BY MOUTH EVERY DAY Active Social History Tobacco Use: Social History Observation [...] Problem Status W/U Status Risk Notes Problem 12078045 Elevated cholesterol (E78.00) Active confirmed Vital Signs Blood pressure systolic 160 mm Hg 07/22/19 25 Blood pressure diastolic 66 mm Hg 025 Height 68 in 07/22/2024 Weight 199 lbs 07/22/2024 BMI 30.25 kg/m2 07/22/2024 Encounters Encounter Location Date Provider Diagnosis Jose G Schaefer MD [address] [place] [address] [place] [phone] 07/22/2024 Jose G Schaefer Elevated cholesterol E78.00 ; Annual physical exam Z00.00 ; PSA elevation R97.20 ; Colon cancer screening Z12.11 and Depression screening Z13.31 Assessments Encounter Date Diagnosis (ICD Code) Assessment Notes Treatment Notes Treatment Clinical Notes Section Notes 07/22/2024 Elevated cholesterol (ICD-10 - E78.00) stable, will continue current regiment 07/22/2024 Annual physical exam (ICD-10 - Z00.00) labs reviewed and discussed with patient 07/22/2024 PSA elevation (ICD-10 - R97.20) will continue to monitor, labs pending 07/22/2024 Colon cancer screening (ICD-10 - Z12.11) guaiac negative 07/22/2024 Depression screening (ICD-10 - Z13.31) negative screen Plan Of Treatment Medication Medication Name Sig Start Date Stop [...] screen Pending Test Test Name Order Date PSA,Total (Free>4and<10) 07/22/2024 Next Appt Details Follow Up: 3 Months, Reason: Provider Name:Jose G hilton, 11/05/2024 08:30:00 AM, [address] [place] [address], [place] [address], [place], [place], [phone], Provider Name:Jose G hilton, 07/15/2025 07:15:00 AM, [address] [place] [address], [place] [address], [place], [place], [phone], Provider Name:Jose G hilton, 07/24/2025 02:30:00 PM, [address] [place] [address], [place] [address], [place], [place], [phone], Progress Notes * Kushal MARTINEZDOB:1965 (59 yo M)Acc No.[id number]:07/22/2024 Progress Notes Patient:?Kushal Martinez Provider:?Jose G Schaefer MD :1965???Age:59 Y???Sex:Male Amadeo e:07/22/2024 Address:[address] [place], [place] [address], [place] Subjective: * Chief Complaints: * ???annual visit/ must see PS A * HPI: ???Depression Screening:?PHQ-9?Little interest or pleasure in doing things?Not at all,?Feeling down, depressed, or hopeless?Not at all,?Trouble falling or staying asleep, or sleeping too much?Not at all,?Feeling tired or having little energy?Not at all,?Poor appetite or overeating?Not at all,?Feeling bad about yourself or that you are a failure, or have let yourself or your family down?Not at all,?Trouble concentrating on things, such as reading the newspaper or watching television?Not at all,?Moving or speaking so slowly that other people could have noticed; or the opposite, being so fidgety or restless that you have been moving around a lot more than usual?Not at all,?Thoughts that you would be better off or of hurting yourself in some way?Not at all,?Total Score?0.?Interpretation and Intervention?Depression Screening Findings?Negative,?Follow-Up for Depression?: review of PHQ-9 found negative result, no follow-up needed.?Communication Needs:?Communication Needs?Does the patient have a hearing impairment?No,?Does the patient have a vision impairment??No,?Does the patient have a cognition impairment??No.?SDOH Questions:?SDOH Questions?In the past year have you been worried about losing housing??No,?In the past year have you or any family members you live with been unable to get any of the following when it was really needed? Check all that apply:?None.?Symptom(s):? patient is a 59 yo male here for annual visit with review of recent labs and follow up of chronic issues, gets a straining sensation in left testicla just a pulling. * ROS:?General/Constitutional:?Patient denies?fatigue , headache.?Change in appetite?denies.?Chills?denies.?Fever?denies.?Ophthalmologic:?Blurred vision?denies.?Discharge?denies.?Pain?denies.?ENT:?Patient denies?decreased sense of smell , any loss of taste , sore throat.?Decreased hearing?denies.?Sore throat?denies.?Swollen glands?denies.?Endocrine:?Cold intolerance?denies.?Excessive thirst?denies.?Heat intolerance?denies.?Weight loss?denies.?Respiratory:?Cough?denies.?Shortness of breath at rest?denies.?Shortness of breath with exertion?denies.?Wheezing?denies.?Cardiovascular:?Chest pain at rest?denies.?Chest pain with exertion?denies.?Irregular heartbeat?denies.?Shortness of breath?denies.?Gastrointestinal:?Abdominal pain?denies.?Change in bowel habits?denies.?Diarrhea?denies.?Nausea?denies.?Rectal bleeding?denies.?Vomiting?denies .?Genitourinary:?Blood in urine?denies.?Difficulty urinating?denies.?Frequent urination?denies.?Musculoskeletal:?Patient denies?muscle aches.?Painful joints?denies.?Weakness?denies.?Peripheral Vascular:?Patient denies?red and blue toes.?Skin:?Dry skin?denies.?Itching?denies.?Denies?Mole(s),? changes in moles, new moles or any lesions of concern.?Denies?Photosensitivity.?Rash?denies.?Neurologic:?Dizziness?denies.?Fainting?denies.?Headache?denies.? * Medical History:? * Surgical History:? * Hospitalization/Major Diagno stic Procedure:? * Family History:?Father: dece ased 48 yrs.?Mother: alive 81 yrs.?3 brother(s) . 1 son(s) . .? Father colon CA, No pertinent family medical history, Denies mental health/substance abuse family history, No pertinent family medical history. * Social History:?Tobacco Use:?Tobacco Use/Smoking?Patient is a?nonsmoker,?Additional Findings: Tobacco Non-User?Current non-smoker, currently using no form of tobacco.?Drugs/Alcohol:?Alcohol Screen?Did you have a drink containing alcohol in the past year??No,?Points?0,?Interpretation?Negative.?Miscellaneous:?Caffeine: yes, frequency:, 1-2 cups per day. Children: yes. Exercise: yes, walks 3 times a week 3 miles. Living with: alone. Marital status: single. Occupation: weeks/months/years, works full-time. Pets: none. no Travel outside of the [place]. * Medications:?TakingAtorvasta tin Calcium 20 MG Tablet TAKE 1 TABLET BY MOUTH EVERY DAY Medication List reviewed and reconciled with the patientTaking Atorvastatin Calcium 20 MG Tablet TAKE 1 TABLET BY MOUTH EVERY DAY Medication List reviewed and reconciled with the patient * Allergies:?Nuts: anaphylaxis lobster, shellfish: hivesraw eggs: hivesyes[Allergies Verified] Objective: * Vitals:?Ht: 68, Wt:199, BMI: 30.25, BP:160/66, Repeat BP:140/78. * ???Past Orders: ???Lab:Complete Blood Count Auto Diff (Order Date - 07/05/2024) (Collection Date - 07/05/2024) ? Value Reference Range ?White Blood Count 7.4 4. 8-10.8 - X10*3/uL ?Red Blood Count 5.56 4.60 -5.80 - X10*6/uL ?Hemoglobin 14.8 14.0-18.0 - g/dl ?Hematocrit 47.5 42.0-52.0 - % ?Mean Corpuscular Volume 85.4 80.0-98.0 - fL ?Mean Corpuscular Hemoglobin 26.6 L 27.0-33.0 - pg ?Mean Corpuscular HGB Conc 31.2 31.0-36.0 - g/dl ?Red Cell Distribution Width 14.2 11.0-16.0 - % ?Platelet Count 223 160-4 00 - X10*3/uL ?Mean Platelet Volume 11.5 9.4-12.4 - fL ?Neutrophils Percent Auto 51.8 45-73 - % ?Imm Gran Pct Auto 0.4 0. 0-0.4 - % ?Lymphocytes Percent Auto 31.4 20-40 - % ?Monocytes Percent Auto 13.3 H 2-11 - % ?Eosinophils Percent Auto 2.4 0-4 - % ?Basophils Percent Auto 0.7 0-2 - % ?NRBC Pct Auto 0.0 0.0-0. 2 - /100WBC ?Neutrophils Absolute Auto 3.8 2.0-8.3 - x10*3/uL ?Imm Gran Abs Auto 0.03 0. 00-0.03 - X10*3/uL ?Lymphocytes Absolute Auto 2.3 1.2-4.9 - X10*3/uL ?Monocytes Absolute Auto 1.0 0.1-1.2 - X10*3/uL ?Eosinophils Absolute Auto 0.2 0.0-0.4 - X10*3/uL ?Basophils Absolute Auto 0.1 0.0-0.2 - X10*3/uL ?NRBC Abs Auto 0.000 0.0-0. 012 - X10*3/uL ???Lab:Comprehensive Romeo. P cathy Fast (Order Date - 07/05/2024) (Collection Date - 07/05/2024) ? Value Reference Range ?Sodium 142 135-145 - mmo l/L ?Bilirubin Total 0.9 0.0- 1.0 - mg/dL ?Aspartate Amino Transferase 17 5-37 - U/L ?Alanine Aminotransferase 12 0-40 - U/L ?Total Protein 7.4 6.5-8. 0 - g/dL ?Albumin Level 4.2 3.5-5. 0 - g/dL ?Alkaline Phosphatase 75 39-117 - U/L ?Potassium 3.8 3.3-5.1 - mmol/L ?Chloride 105 96-108 - mm ol/L ?Carbon Dioxide 24 22-29 - mmol/L ?Anion Gap 17 -20 - ?Blood Urea Nitrogen 15 9-16 - mg/dL ?Creatinine 1.33 0.5-1.4 - mg/dL ?Estimated Glomerular Filt Rate 55 - ?Glucose Fasting 104 H 60-9 9 - mg/dL ?Calcium 9.0 8.4-10.2 - m g/dL ???Lab:Lipid Panel (Order Da te - 07/05/2024) (Collection Date - 07/05/2024) ? Value Reference Range ?Triglycerides 125 <150 - mg/dL ?Cholesterol 241 H <200 - m g/dL ?LDL Cholesterol Calculated 168 H <100 - mg/dL ?HDL Cholesterol 48 >40 - mg/dL ???Lab:UA ClnCatch+Micro w/r flx Cult (Order Date - 07/05/2024) (Collection Date - 07/05/2024) ? Value Reference Range ?Color Urine Dark Yellow - ?Appearance Urine Cloudy - ?PH 5.5 5.0-9.0 - ?Glucose Urine UA Negative Neg ative - mg/dL ?Urine Blood Negative Negative - ?Specific [place] - Urine 1.025 1.005-1.025 - ?Urine Protein 30 (1+) A Neg-Tr sathish - mg/dL ?Urine Ketones 40 Negati ve - mg/dL ?Nitrite Urine Negative Negati ve - ?Leukocyte Esterase Urine Negative Negative - ?RBC Urine 0-2 0-2 - /HPF ?WBC Urine 0-5 0-5 - /HPF ?Squamous Epithelial Cell Urine 0-2 0-2 - /HPF ?Bacteria Urine None Seen None Seen - ?Hyaline Casts Urine 0-2 0-2 - /LPF * Examination: ???General Examination: ?GENERAL APPEARANCE:?well developed, well nourished, in no acute distress.?HEAD:?normocephalic, atraumatic.?EYES:?pupils equal, round, reactive to light and accommodation, sclera non-icteric.?EARS:?normal.?ORAL CAVITY:?mucosa moist.?THROAT:?clear.?NECK/THYROID:?neck supple, full range of motion, no cervical lymphadenopathy, no bruits.?SKIN:?warm and dry, no suspicious lesions.?HEART:?regular rate and rhythm, S1, S2 normal, no murmurs.?LUNGS:?clear to auscultation bilaterally.?ABDOMEN:?soft, nontender, nondistended, bowel sounds present, normal, no organomegaly , no masses palpable.?RECTAL EXAM:?normal tone, no external hemorrhoids, no masses palpable, prostate normal, stool guaiac negative.?MALE GENITOURINARY:?circumcised , no testicular mass , testes descended bilaterally.?EXTREMITIES:?no clubbing, cyanosis, or edema.?NEUROLOGIC:?nonfocal, motor strength normal upper and lower extremities, sensory exam intact.? Assessment: * Assessment: 1.?Annual physical exam - Z0 0.00 (Primary)?2.?Elevated cholesterol - E78.00?3.?PSA elevation - R97.20?4.?Colon cancer screening - Z12.11?5.?Depression screening - Z13.31? Plan: * Treatment: 2.?Elevated cholesterol? Continue Atorvastatin Calcium Tablet, 20 MG, TAKE 1 TABLET BY MOUTH EVERY DAY.?LAB: Lipid Panel ?LAB: Lipid Panel (Ordered for 10/20/2024) Notes: stable, will continue current regiment?? 3.?PSA elevation?LAB: PSA,Total (Free>4and<10) (Ordered for 10/20/2024) Notes: will continue to monitor, labs pending?? 4.?Colon cancer screening?LAB: Occult Blood, Stool, Guaiac?Negative ? Value Reference Range ?Occult Blood, Stool, Guaiac Neg Notes: guaiac negative??5.?Depression screening? Notes: negative screen?? * Procedure Codes:?14147 VENIP UNCT, ROUTINE*69694 TEST FOR BLOOD, FECES * Follow Up:?3 Months * * Sign off status: Completed true * Provider:?Jose G Schaefer MD Date:?0 07/22/2024 Generated for Latesha gonzalez/Vikram/Debbieitting on:?10/28/2024 11:41 AM EDT History and Physical Notes * HPI (History of Present Illness) Category Sub-Category Detail Notes Category Not es Symptom(s) patient is a 59 yo male here for annual visit with review of recent labs and follow up of chronic issues, gets a straining sensation in left testicla just a pulling Depression Screening PHQ-9 Little inte rest or [...] patient have a cognition impair ment?: No Examination Category Sub-Category Detail Notes Category Not es General Examination GENERAL APPEARANCE: well dev eloped, [...]
--- OUTSIDE RECORDS SUMMARY | 2024-10-28 11:42 | XMS_ITS ---
Author Organization Jose G Schaefer MD Address [address] [place], [place] [id number] Care Team Providers Care Entry Level Sales Associate Name Role Phone Jose G Schaefer Primary Care Provider Results Component Value Reference Range Notes PSA,Total (Free>4and<10) (No t yet reviewed by provider) Interpretation: Performing Lab:[facility], [address] [place] [phone] Notes/Report: PSA,Total (Free>4and<10) 3.54 0.00-4.00 ng/mL A [...] Panel Reviewed date:10/28/2024 11:05:37 AM Interpretation: Performing Lab:[facility], [address] [place] [phone] Notes/Report: Triglycerides 118 <150 mg/dL Desirable Triglyceride: [...] patients with liver disease. REASON FOR VISIT LIPID PANEL, PSA, TOTAL Encounters Encounter Location Date Provider Diagnosis Jose G Schaefer MD [address] [place] [phone] 10/28/2024 Jose G Schaefer Elevated cholesterol E78.00 and PSA elevation R97.20 Assessments Encounter Date Diagnosis (ICD Code) Assessment Notes Treatment Notes Treatment Clinical Notes Section Notes 10/28/2024 Elevated cholesterol (ICD-10 - E78.00) 10/28/2024 PSA elevation (ICD-10 - R97.20) Plan Of Treatment Pending Test Test Name Order Date PSA,Total (Free>4and<10) 10/28/2024 Next Appt Details Provider Name:Jose G hilton, 11/05/2024 08:30:00 AM, [address] [place] [address], [address], [phone], Provider Name:Jose G hilton, 07/15/2025 07:15:00 AM, [address] [place] [address], [address], [phone], Provider Name:Jose G hilton, 07/24/2025 02:30:00 PM, [address] [place] [address], [phone], Progress Notes * Donn MARTINEZ:1965 (59 yo M)Acc No.[id number]:10/28/2024 Progress Note Patient:?Kushal MARTINEZ Provider:?Jose G Schaefer MD :1965???Age:59 Y???Sex:Male Amadeo e:10/28/2024 Address:[place] [facility] Subjective: * Chief Complaints: * ???1. LIPID PANEL, PSA, TOTA L. * Medical History:? Objective: * Vitals:? Assessment: * Assessment: 1.?Elevated cholesterol - E7 8.00 (Primary)???2.?PSA elevation - R97.20??? Plan: * Treatment: 2.?PSA elevation?LAB: PSA,Total (Free>4and<10) (Collection Date & Time - 10/28/2024 07:00 AM) * Procedure Codes:?03336 VENIP UNCT, ROUTINE* * * The named appointment provid er may or may not be the originator of this progress note, and it is not deemed complete until electronically signed by the appointment provider. Sign off status: Pending * Provider:?Jose G Schaefer MD Date:?0 10/28/2024 Generated for Latesha gonzalez/Vikram/Debbieitting on:?10/28/2024 11:41 AM EDT
== END 2024-10-28 07:01 | disposition home or self-care (01) ==
LOC: HO.LNP 07:00
PROVIDERS: Visit Provider Internal Medicine
DX: Z12.5 Encounter for screening for malignant neoplasm of prostate (principal); E78.00 Pure hypercholesterolemia, unspecified
CPT/HCPCS: 80061; 84153

== ENCOUNTER 2025-01-24 06:27 | Day surgery (SDC) | payer OTHER, SELFPAY ==
--- OUTSIDE RECORDS SUMMARY | 2024-12-24 12:48 | XMS_ITS ---
Author Organization Jose G Schaefer MD Address [address] [place], [place] [phone] Care Team Providers Care Patient Admitting Clerk Name Role Phone Jose G Schaefer Primary [...] with patient, he will be calling their office Referral Priority Routine REASON FOR VISIT 3 MO F/U, JOSR PSA, Video [phone] Medications Medication SIG (Take, Route, Frequency, Duration) Notes Start Date End Date Status Atorvastatin Calcium 20 MG TAKE 1 TABLET BY MOUTH EVERY DAY for 90 Active Vital Signs Height 68 in 11/05/2024 Weight 195 lbs 11/05/2024 BMI 29.65 kg/m2 11/05/2024 weight is 195 at home BP not taken Encounters Encounter Location Date Provider Diagnosis Jose G Schaefer MD [address] [place] [phone] 11/05/2024 Jose G Schaefer Elevated PSA R97.20 [...] Referrals Referral Date Details 11/05/2024 11/05/2024, PSA Elev tenaJACOB Next Appt Details Provider Name:Jose G hilton, 07/15/2025 07:15:00 AM, [address] [place] [address], [place] [address], [place], [place], [phone], Provider Name:Jose G hilton, 07/24/2025 02:30:00 PM, [address] [place] [address], [address], [phone], Progress Notes * Kushal MARTINEZDOB:1965 (59 yo M)Acc No.[id number]:11/05/2024 Patient:?Kushal MARTINEZ Provider:?Jose G Schaefer MD :1965???Age:59 Y???Sex:Male Amadeo e:11/05/2024 Address:[address] [facility] Subjective: * Chief Complaints: * ???3 MO Tex/TOÑA Beltran * HPI: ???Symptom(s):?Telehealth?Location of provider rendering services:?[address], [address],?Location of patient:?at address listed in demographics for today's visit,?Patient identification confirmed using:?Name, ,?Telehealth method:?Telephone only. Patient not visible to care provider.,?Consent:?Patient verbally consented to treatment, Patient verbally consented to billing insurance company, Patient informed of any privacy concerns related to method of visit,?Total time spend talking with patient (minutes)?18.?patient is a 59 yo male audio telehealth visit, here for 3 month follow up visit/ here for follow up of psa. * ROS:?General/Constitutional:?Denies?Chills.?Denies?Fatigue.?Denies?Fever.?Denies?Headache.?ENT:?Denies?Sore throat.?Respiratory:?Denies?Cough.?Denies?Shortness of breath at rest.?Denies?Shortness of breath with exertion.?Gastrointestinal:?Denies?Diarrhea.?Denies?Nausea.? * Medical History:? * Surgical History:? * Hospitalization/Major Diagno stic Procedure:? * Medications:?TakingAtorvasta tin Calcium 20 MG Tablet TAKE 1 TABLET BY MOUTH EVERY DAY Medication List reviewed and reconciled with the patientTaking Atorvastatin Calcium 20 MG Tablet TAKE 1 TABLET BY MOUTH EVERY DAY Medication List reviewed and reconciled with the patient * Allergies:?Nuts: anaphylaxis lobster, shellfish: hivesraw eggs: hivesyes[Allergies Verified] Objective: * Vitals:?Ht: 68, Wt: 195, BMI :29.65, Wt-k.45. weight is 195 at home? BP? not taken. Assessment: * Assessment: 1.?Elevated PSA - R97.20 (Pr imary)??? Plan: * Treatment: 2.?Others? Referral To:JACOB HEATON??Urology ?Reason:PSA Elevation * Procedure Codes:? * * Sign off status: Completed true * Provider:?Jose G Schaefer MD Date:?0 11/05/2024 Generated for Printi ng/Faxing/eTransmitting on:?12/24/2024 12:48 PM EDT History and Physical Notes * HPI (History of Present Illness) Category Sub-Category Detail Notes Category Not es Symptom(s) Telehealth Location of [facility] rendering services:: [address] [place] [address], [address] patient is a 59 yo [...]
[2025-01-22 14:10] VITALS: BMI 31.9
--- NOTE | 2025-01-23 11:53 | P.CONAN_ITS ---
Documented by User: Sonja Brooks NP 01/23/25 11:55 HPI - Anesthesia Eval Consult details Narrative: 59 yr old male for colonoscopy. [facility] Past Medical History Medical History Elevated cholesterol Tubular adenoma Family history of colon cancer Family History Family history of problems with anesthesia: No Surgical History Surgical History (Updated 05/03/21 @ 13:54 by Sarah Tierney RN) H/O colonoscopy History of Problems with Anesthesia: No Social History Social History Patient Tobacco Use Status: Never used Tobacco Use of substances other than those prescribed or required for medical reasons: No Advance Directives: No Advance Directives Information Provided: Yes Poor oral hygiene: No Meds Allergies Allergy/AdvReac Type Severity Reaction Status Date / Time shellfish derived Allergy Severe Hives Verified 05/03/21 14:09 tree nut Allergy Severe Anaphylaxis Verified 05/03/21 14:08 Home Medications ?Medication ?Instructions ?Recorded ?Confirmed ?Last Taken ?Type atorvastatin 20 mg tablet 20 mg PO DAILY 01/22/2501/14 2 Days Ago History ~01/22/25 Exam Height,Weight and Vital Signs: Height 5 ft 8.5 in Weight 96.524 kg Assessment and Plan Final Anesthetic Review Family History of Problems with Anesthesia: No History of Problems with Anesthesia: No Documented by User: Humberto Barnes MD 01/24/25 07:21 [facility] Past Medical History Medical History Elevated cholesterol Tubular adenoma Family history of colon cancer Surgical History Surgical History (Updated 05/03/21 @ 13:54 by Sarah Tierney RN) H/O colonoscopy Social History Social History Patient Tobacco Use Status: Never used Tobacco Use of substances other than those prescribed or required for medical reasons: No Advance Directives: No Advance Directives Information Provided: Yes Poor oral hygiene: No Meds Allergies Allergy/AdvReac Type Severity Reaction Status Date / Time shellfish derived Allergy Severe Hives Verified 05/03/21 14:09 tree nut Allergy Severe Anaphylaxis Verified 05/03/21 14:08 Home Medications ?Medication ?Instructions ?Recorded ?Confirmed ?Last Taken ?Type atorvastatin 20 mg tablet 20 mg PO DAILY 01/22/2501/14 2 Days Ago History ~01/22/25 Exam Airway TM Dist: <=3cm Neck ROM: Full Loose/Missing/Broken Teeth: No Heart: ok Lungs: ok Assessment and Plan Assessment Anesthesia Assessment: Anesthesia Plan Discussed and Chart Reviewed Final Anesthetic Review NPO: Yes ASA Class: II Final Preanesthetic Review: No Changes in Pt Med Stat, Meds/Allgs Chart Reviewed, Consent Obtained/Reviewed and Anes Risks/Benef Reviewed Patient Risk: Intermediate Procedure Risk: Low Anesthetic Plan Anesthetic Plan: MAC: and Agree w/ Assess. and Plan Disposition: Standard PACU
[2025-01-24 06:46] VITALS: BP 133/76; PULSE 78; RESP 16; TEMP 36.5; O2SAT 96
[2025-01-24] MEDS: Lactated Ringers 1,000 ML 100 ML IVCONT (06:47)
[2025-01-24 08:32] VITALS: BP 105/69; PULSE 80; RESP 14; TEMP 36.9; O2SAT 95
--- NOTE | 2025-01-24 08:34 | P.BOP_ITS ---
Brief Operative Note Date of Service: 01/24/25 Pre-op diagnosis: Screening Post-op diagnosis: other (Polyps) Procedure: Colonoscopy to the cecum with cold snare polypectomies and bx/removal of polyps Surgeon: Bryce Bower MD Anesthesia: MAC Was an Control Supervisor used for this Procedure?: No Estimated blood loss (mL): 2.0 Pathology: other (A. Ascending colon polyp B. Transverse colon polyps C. Polyps at 20cm) Condition: stable Disposition: PACU
[2025-01-24 08:42] VITALS: BP 117/78; PULSE 73; RESP 18; O2SAT 95
[2025-01-24 08:48] VITALS: BP 124/78; PULSE 69; RESP 18; TEMP 36.6; O2SAT 97
--- NOTE | 2025-01-24 08:51 | OP_ITS ---
DATE OF SERVICE: 01/24/2025 SURGEON: Bryce Bower MD INDICATIONS: The patient presents for evaluation of personal history of tubular adenoma of the colon, family history of colon cancer, and colorectal cancer screening. Full consent has been obtained from him for this, including risks of bleeding and perforation. PREOPERATIVE DIAGNOSIS: Colorectal cancer screening, personal history of tubular adenoma of the colon, family history of colon cancer. POSTOPERATIVE DIAGNOSIS: Colorectal cancer screening, personal history of tubular adenoma of the colon, family history of colon cancer, colon polyps, diverticulosis, and internal hemorrhoids. PROCEDURE PERFORMED: Colonoscopy to cecum and terminal ileum with cold snare polypectomies and biopsy and removal of polyps. ESTIMATED BLOOD LOSS: COMPLICATIONS: ANESTHESIA: Monitored anesthesia care. ASSISTANTS: SPECIMENS: DESCRIPTION OF PROCEDURE: The patient was placed in the left lateral decubitus position. The digital rectal exam revealed no abnormalities. The [employer] video pediatric colonoscope was entered into the rectum and advanced easily to the cecum. Once in the cecum, I did identify normal-appearing cecal pouch with appendiceal orifice and a normal-appearing ileocecal valve. The terminal ileum was cannulated and appeared normal. The scope was withdrawn back in the colon. The entire cecum and ileocecal valve appeared normal. The scope was then slowly withdrawn assessing all mucosal surfaces carefully. Preparation was excellent. In the ascending colon was an approximately 10 mm polyp, which was removed in piecemeal fashion by both cold snare polypectomy and biopsy and removal with cold biopsy forceps. There was no sign of any residual polyp nor any significant bleeding. In the transverse colon were 3 approximately 10 to 12 mm flat, but raised polyps, that were all removed with cold snare polypectomies. These were all placed in the same container. At 20 cm were flat less than 5 mm polyps which were biopsied and removed with cold biopsy forceps. I did not visualize any other polyps, colitis, or angiodysplasia. There was a mild amount of sigmoid diverticulosis. In the rectum, scope was retroflexed visualizing internal hemorrhoids, but no other pathology. The rectal mucosa appeared normal. The scope was straightened and withdrawn from the patient. He tolerated the procedure well and was returned to the recovery area in stable condition. IMPRESSION: 1. Colon polyps. 2. Diverticulosis. 3. Internal hemorrhoids. PLAN: The results of the pathology will be checked. If these are all adenomatous and/or hyperplastic, I would recommend a followup coloscopy within 5 years. If the polyps are serrated polyps, I would recommend a repeat colonoscopy within 3 years. He was advised not to use any aspirin and NSAIDs for 1 week. MD JUDITH Prieto/YASIR / [phone] MTDD
== END 2025-01-24 09:12 | disposition home or self-care (01) ==
PROVIDERS: PCP Internal Medicine; Visit Provider Internal Medicine
PROC: 0DJD8ZZ Inspection of Lower Intestinal Tract, Via Natural or Artificial Opening Endoscopic (ICD-10-PCS; CPT 45378; principal; 2025-01-24 07:30)
DX: Z12.11 Encounter for screening for malignant neoplasm of colon (principal); Z86.0101 Personal history of adenomatous and serrated colon polyps; Z80.0 Family history of malignant neoplasm of digestive organs; D12.2 Benign neoplasm of ascending colon; D12.3 Benign neoplasm of transverse colon; K63.5 Polyp of colon; K57.30 Diverticulosis of large intestine without perforation or abscess without bleeding; K64.8 Other hemorrhoids; E78.00 Pure hypercholesterolemia, unspecified; Z79.899 Other long term (current) drug therapy
CPT/HCPCS: 45385; 45380; 88305; J2003; J2704

== ENCOUNTER → 2025-04-09 07:57 | Outpatient (REF) | payer OTHER, SELFPAY ==
--- OUTSIDE RECORDS SUMMARY | 2024-12-27 04:48 | XMS_ITS ---
Author Organization Jose G Schaefer MD Address [address] [facility] [address] [place] [phone] Care Team Providers Care Apple Checker Name Role Phone Jose G Schaefer Primary Care Provider REASON FOR VISIT appt with Urology Encounters Encounter Location Date Provider Diagnosis Jose G Schaefer MD [address] [place] [address] [address] [place] [phone] 12/27/2024 Jose G Schaefer Plan Of Treatment Next Appt Details Provider Name:Jose G hilton, 05/02/2025 02:00:00 PM, [address] [place] [address], [address], [phone], Provider Name:Jose G Cooper ier, 07/15/2025 07:15:00 AM, [address] [place] [address], [address] [place] [address], [phone], Provider Name:Jose G hilton, 07/24/2025 02:30:00 PM, [address] [place] [address], [address], [phone], Provider Name:Jose G hilton, 03/30/2026 07:00:00 AM, [address] [place] [address], [address], [phone], Progress Notes * Kushal MARTINEZDOB:1965 (59 yo M)Acc No.[id number]:12/27/2024 Patient: Kushal HUANG :1965 A ge:59 Y S ex:Male Address:[address] [place] [address], [place] [address] * true * Date: Generated for Latesha gonzalez/Vikram/Debbieitting on: 0 04/09/2025 08:01 AM EDT
--- OUTSIDE RECORDS SUMMARY | 2025-01-24 03:30 | XMS_ITS ---
Author Organization [facility] Address [address] [place] [address] Care Team Providers Care Automotive Customer Experience Advisor Name Role Phone Olive ELIZABETH, Jose G Primary Care Provider Bryce Moreau [phone] REASON FOR VISIT family hx of colon cancer,hx of adenomatous polyp, screening for malignant neoplasm of the colon, serrated polyp of the colon,preprocedural exam Encounters Encounter Location Date Provider Diagnosis [facility] Out[place] [address] [place] [phone] 01/24/2025 Bryce Bower Plan Of Treatment No Information Progress Notes * EZEKIEL SUAREZ MDOB:[birth year] (59 yo M)Acc No.[id number]:01/24/2025 COLON WITH MAC Patient: Justa ROCHAEZEKIEL Provider: Yessica Bower MD :1965 A ge:59 Y S ex:Male Date:01/24/2025 Address:[address] [place] [address] [facility] Pcp:oJse G Schaefer MD Subjective: * Chief Complaints: [...] MD Date: 0 01/24/2025 Generated for Latesha gonzalez/Vikram/Debbieitting on: 0 04/09/2025 08:01 AM EDT
--- OUTSIDE RECORDS SUMMARY | 2025-03-11 11:13 | XMS_ITS ---
Author Organization Jose G Schaefer MD Address [address] [place] [address] [place] [phone] Care Team Providers Care Buttonhole Maker Hand Name Role Phone Jose G Schaefer Primary Care Provider REASON FOR VISIT refill Encounters Encounter Location Date Provider Diagnosis Jose G Schaefer MD [address] [place] [address] [place] [phone] 03/11/2025 Jose G Schaefer Plan Of Treatment Next Appt Details Provider Name:Jose G Cooper ier, 05/02/2025 02:00:00 PM, [address] [place] [address], [address], [phone], Provider Name:Jose G Cooper ier, 07/15/2025 07:15:00 AM, [address] [place] [address], [address], [phone], Provider Name:Jose G Cooper ier, 07/24/2025 02:30:00 PM, [address] [place] [address], [address], [phone], Provider Name:Jose G Cooper ier, 03/30/2026 07:00:00 AM, [address] [place] [address], [address], [phone], Progress Notes * Donn MARTINEZ:1965 (59 yo M)Acc No.[id number]:03/11/2025 Patient: Kushal HUANG :1965 A ge:59 Y S ex:Male Address:[address] [place] [address], [facility]27 * true * Date: Generated for Latesha gonzalez/Vikram/Karthiksmitting on: 0 04/09/2025 08:02 AM EDT
--- OUTSIDE RECORDS SUMMARY | 2025-03-25 11:00 | XMS_ITS ---
Author Organization Jose G Schaefer MD Address [address] [place], [place] [phone] Care Team Providers Care Fish Checker Name Role Phone Jose G Schaefer [...] Status W/U Status Risk Notes Problem Asthma (520708302) Asthma (J45.909) Active confirmed Problem Malignant tumor of prostate (816341387) Prostate cancer (C61) Active confirmed Vital Signs Blood pressure systolic 172 mm Hg 03/25/20 25 Blood pressure diastolic 84 mm Hg 025 Height 68 in 03/25/2025 Weight 206 lbs 03/25/2025 BMI 31.32 kg/m2 03/25/2025 weight is up 11 pounds since 11-05-24 Encounters Encounter Location Date Provider Diagnosis Jose G Schaefer MD [address] [place] [phone] 03/25/2025 Jose G Schaefer Asthma J45.909 and [...] Provider Name:Jose G hilton, 05/02/2025 02:00:00 PM, [address] [place] [address], [phone], Provider Name:Jose G hilton, 07/15/2025 07:15:00 AM, [address] [place] [address], [phone], Provider Name:Jose G hilton, 07/24/2025 02:30:00 PM, [address] [place] [address], [phone], Provider Name:Jose G hilton, 03/30/2026 07:00:00 AM, [address] [place] [address], [phone], Progress Notes * Kushal MARTINEZDOB:1965 (59 yo M)Acc No.[id number]:03/25/2025 Progress Notes Patient: Justa Kushal ROCHA Provider: Duncan Schaefer MD :1965 A ge:59 Y S ex:Male Date:03/25/2025 Address:[address] [place], [place] [phone] Subjective: * Chief Complaints: * D iscuss [...] Schaefer MD Date: 0 03/25/2025 Generated for Laetsha gonzalez/Vikram/eTransmitting on: 0 04/09/2025 08:01 AM EDT History and Physical Notes * [...]
--- OUTSIDE RECORDS SUMMARY | 2025-03-28 10:00 | XMS_ITS ---
Author Organization Jose G Schaefer MD Address [address] [place] [phone] Care Team Providers Care Tire Rebuilder Name Role Phone Jose G Schaefer Primary Care Provider [phone] Allergies Allergen (clinical drug ingredient) Drug/Non Drug [...] G Schaefer MD [address] [place] [phone] 03/28/2025 Jose G Schaefer Shortness of breath R06.02 and Prostate cancer C61 Assessments Encounter Date Diagnosis (ICD Code) Assessment Notes Treatment Notes Treatment Clinical Notes Section Notes 03/28/2025 Shortness of breath (ICD-10 - R06.02) seems mostly likely lung since it is there all the time and heard a little wheeze when he used his inhaler. / order faxed to [facility] dept 03/28/2025 Prostate cancer (ICD-10 - C61) we discussed the outcome of his visit with the urologist and i have suggested a vist to the [facility] to gain a better understanding of the options Plan Of Treatment Treatment Notes Assessment Notes Shortness of breath seems mostly likely lung since it is there all the time and heard a little wheeze when he used his inhaler. / order faxed to [facility] dept Prostate cancer we discussed the out come of his visit with the urologist and i have suggested a vist to the [facility] to gain a better understanding of the options Pending Test Test Name Order Date CA stress test 03/28/2025 Next Appt Details Follow Up: 4 Weeks, Reason: Provider Name:Jose G hilton, 05/02/2025 02:00:00 PM, [address] [place] [address], [phone], Provider Name:Jose G hilton, 07/15/2025 07:15:00 AM, [address] [place] [address], [phone], Provider Name:Jose G hilton, 07/24/2025 02:30:00 PM, [address] [place] [address], [phone], Provider Name:Jose G hilton, 03/30/2026 07:00:00 AM, [address] [place] [address], [phone], Progress Notes * Kushal MARTINEZDOB:1965 (59 yo M)Acc No.[id number]:03/28/2025 Progress Notes Patient: Justa Kushal ROCHA Provider: Duncan Schaefer MD :1965 A ge:59 Y S ex:Male Date:03/28/2025 Address:[address] [place], [id number] Subjective: * Chief Complaints: * 3 day [...] true * Provider: Duncan Schaefer MD Date: 03/28/2025 Generated for Nawafi lisa/Vikram/eTransmitting on: 0 04/09/2025 08:02 AM EDT History and Physical Notes * [...]
--- OUTSIDE RECORDS SUMMARY | 2025-03-28 10:32 | XMS_ITS ---
Author Organization Jose G Schaefer MD Address [address] [place] [address] [place] [phone] Care Team Providers Care Pastry Cook Name Role Phone Jose G Schaefer Primary Care Provider REASON FOR VISIT Urology referral Encounters Encounter Location Date Provider Diagnosis Jose G Schaefer MD [address] [place] [address] [place] [phone] 03/28/2025 Jose G Schaefer Plan Of Treatment Next Appt Details Provider Name:Jose G hilton, 05/02/2025 02:00:00 PM, [address] [place] [address], [address], [phone], Provider Name:Jose G Cooper ier, 07/15/2025 07:15:00 AM, [address] [place] [address], [address] [place] [address], [phone], Provider Name:Jose G Cooper ier, 07/24/2025 02:30:00 PM, [address] [place] [address], [address], [phone], Provider Name:Jose G hilton, 03/30/2026 07:00:00 AM, [address] [place] [address], [address], [phone], Progress Notes * Donn MARTINEZ:1965 (59 yo M)Acc No.[id number]:03/28/2025 Patient: Justa ROCHA Kushal :1965 A ge:59 Y S ex:Male Address:[address] [place] [address], [place] [address] * * Date:
--- NOTE | 2025-04-09 08:01 | CA_ITS ---
Acquisition Time: 2025-04-09 08:07:09 Total Exercise Time: 00:05:24 Test Indications: SOB Medications: SEE H&P Protocol: SILVIA Max HR: 150 BPM 93% of Pred: 161 BPM Max BP: 134/70 mmHG Max Work Load: 7.0 METS Exercise stress test with exercise 5 mins 24 secs of Silvia Protocol, achieving 93% MPHR, with reports of 2/10 mid chest tightness and SOB, without any arrythmias, with BP lower in stage 2 at 100/60 from 134/70. With ST depression in leads 1, inferiorly and anterolaterally, and with ST elevation in aVR and V1, meeting criteria for ischemia. In recovery, pt's chest tightness resolved and breathing returned to baseline. BP improved to baseline and ST segment improved. Will request referral to Cardiology. Test reviewed with Dr. Norton. Referred By: Jose G Schaefer Electronically Signed By: Sd Mooney
--- OUTSIDE RECORDS SUMMARY | 2025-04-09 08:02 | XMS_ITS | Patient Health Record ---
Author Organization [facility] Address [address] [place] [address] Care Team Providers Care Environment Artist Name Role Phone Jose G Schaefer MD Primary Care Provider Bryce Moreau [phone] Allergies Allergen (clinical drug ingredient) Drug/Non Drug Allergy documented on EMR Reaction Allergy Type Onset Date Status nuts,seafood (uncoded) Unknown Allergy Active Results Component Value Reference Range Notes Pathology (Not yet reviewed by provider) Interpretation: Performing Lab:[facility], [address] [place] [phone] Notes/Report: Reason For Referral No Information Medications Medication SIG (Take, Route, Frequency, Duration) Notes Start Date End Date Status Atorvastatin Calcium 20 MG Oral for 90 Days Active Immunizations Vaccine Route Administration Date Status Comme nts Influenza Unknown 04/07/2021 Administered Influenza Unknown 09/25/2024 Refused Problems Problem Type SNOMED Code ICD Code Onset Dates Problem Status W/U Status Risk Notes Problem 070656180 Encounter for screening for malignant neoplasm of colon (Z12.11) Active confirmed Problem 040213583 History of adenomatous polyp of colon (Z86.010) Active confirmed Problem Screening for malignant neoplasm of rectum (518670251) Encounter for screening for malignant neoplasm of rectum (Z12.12) Active confirmed Problem 79376412 Preprocedural examination (Z01.818) Active confirmed Problem 626207567 Family history o f colon cancer (Z80.0) Active confirmed Problem Diverticulosis of colon (761499315) Diverticulosis of colon (K57.30) Active confirmed Problem Serrated polyp of colon (021445280) Serrated polyp of colon (K63.5) Active confirmed Vital Signs Temperature 97.5 degrees Fahrenheit 09/25/2024 Blood pressure diastolic 01 mm Hg 09/25/2024 Height 68.5 in 09/25/2024 Blood pressure systolic 001 mm Hg 09/25/2024 Weight 212.8 lbs 09/25/2024 BMI 31.88 kg/m2 09/25/2024 Procedures Procedure Date Ordered Date Performed Result Body Sit e COLONOSCOPY 09/25/2024 N/A Encounters Encounter Location Date Provider Diagnosis [facility] [address] [place], [place] [phone] 01/24/2025 Bryce Bower [facility] [address] [place] [address] 09/25/2024 Bryce Bower History of adenomato us polyp of colon Z86.010 ; Preprocedural examination Z01.818 ; Family history of colon cancer Z80.0 ; Encounter for screening for malignant neoplasm of colon Z12.11 and Serrated polyp of colon K63.5 Assessments Encounter Date Diagnosis (ICD Code) Assessment Notes Treatment Notes Treatment Clinical Notes Section Notes 09/25/2024 History of adenomatous polyp of colon (ICD-10 - Z86.010) Overall, Kushal appears well and is not having any new or worrisome GI complaints. Given his last colonoscopy being more than 3 years ago, his history of colon polyps including the sessile serrated polyp in 2020, and his significant family history of colon cancer in his father in his 40s, I did recommend a follow-up colonoscopy for further screening purposes later this year. Full consent has been obtained from him for this, including risks of bleeding and perforation. We did review the rationale for this in regard to colorectal cancer prevention. The procedure will be done with monitored anesthesia care. Kushal was comfortable with this plan. Thank you again for allowing me to participate in Kushal's care. I shall continue to keep you advised of his progress. 09/25/2024 Preprocedural examination (ICD-10 - Z01.818) Overall, Kushal appears well and is not having any new or worrisome GI complaints. Given his last colonoscopy being more than 3 years ago, his history of colon polyps including the sessile serrated polyp in 2020, and his significant family history of colon cancer in his father in his 40s, I did recommend a follow-up colonoscopy for further screening purposes later this year. Full consent has been obtained from him for this, including risks of bleeding and perforation. We did review the rationale for this in regard to colorectal cancer prevention. The procedure will be done with monitored anesthesia care. Kushal was comfortable with this plan. Thank you again for allowing me to participate in Kushal's care. I shall continue to keep you advised of his progress. 09/25/2024 Family history of colon cancer (ICD-10 - Z80.0) Overall, Kushal appears well and is not having any new or worrisome GI complaints. Given his last colonoscopy being more than 3 years ago, his history of colon polyps including the sessile serrated polyp in 2020, and his significant family history of colon cancer in his father in his 40s, I did recommend a follow-up colonoscopy for further screening purposes later this year. Full consent has been obtained from him for this, including risks of bleeding and perforation. We did review the rationale for this in regard to colorectal cancer prevention. The procedure will be done with monitored anesthesia care. Kushal was comfortable with this plan. Thank you again for allowing me to participate in Kushal's care. I shall continue to keep you advised of his progress. 09/25/2024 Encounter for screening for malignant neoplasm of colon (ICD-10 - Z12.11) Overall, Kushal appears well and is not having any new or worrisome GI complaints. Given his last colonoscopy being more than 3 years ago, his history of colon polyps including the sessile serrated polyp in 2020, and his significant family history of colon cancer in his father in his 40s, I did recommend a follow-up colonoscopy for further screening purposes later this year. Full consent has been obtained from him for this, including risks of bleeding and perforation. We did review the rationale for this in regard to colorectal cancer prevention. The procedure will be done with monitored anesthesia care. Kushal was comfortable with this plan. Thank you again for allowing me to participate in Kushal's care. I shall continue to keep you advised of his progress. 09/25/2024 Serrated polyp of colon (ICD-10 - K63.5) Overall, Kushal appears well and is not having any new or worrisome GI complaints. Given his last colonoscopy being more than 3 years ago, his history of colon polyps including the sessile serrated polyp in 2020, and his significant family history of colon cancer in his father in his 40s, I did recommend a follow-up colonoscopy for further screening purposes later this year. Full consent has been obtained from him for this, including risks of bleeding and perforation. We did review the rationale for this in regard to colorectal cancer prevention. The procedure will be done with monitored anesthesia care. Kushal was comfortable with this plan. Thank you again for allowing me to participate in Kushal's care. I shall continue to keep you advised of his progress. Plan Of Treatment Pending Test Test Name Order Date COLONOSCOPY 09/25/2024 Pathology 01/24/2025 Future Test Test Name Order Date COLONOSCOPY 10/28/2015 COLONOSCOPY 03/31/2021 Insurance Providers Payer Name Payer Address Payer Phone Subscriber Number Group Number Insured Name Patient Relationship to Insured Coverage Start Date Coverage End Date [facility] [address] [place], [place] [id number] [phone] KUSHAL SUAREZ Self - patient is the insured Medical (General) History Medical History History ICD Code Tubular adenoma removed in 1 995- F/U colonoscopies were neg. in 1995, 2004, 07/2010 Denies SD,DM,CVA,Lung disease,renal dise ase Colonoscopy in 01/2016- 1 tubular adenoma and 1 hyperplastic polyp removed High cholesterol Screening colonoscopy in Apr with removal of a small tubular adenoma and an approximately 1 cm sessile serrated polyp from the ascending colon Surgical History Surgery Date(Month/Year)
--- OUTSIDE RECORDS SUMMARY | 2025-04-09 08:02 | XMS_ITS | Encounter Summary ---
Author Organization [facility] Address [address] [place] [address] Care Team Providers Care Petrography Teacher Name Role Phone Jose G Schaefer MD Primary Care Provider Encounter Details Date Type Department Care Team (Late st Contact Info) Description 02/26/2025 Lab Requisition [facility] - Main Lab [address] [facility] [place] [address] Clint Kline MD [address] [place] [address] Elevated prostate specific antigen (PSA) Social History Tobacco Use Types Packs/Day Years Used Date Smoking Tobacco: Never Assessed Sex and Gender Information Value Date Recorded Sex Assigned at Not on file Legal Sex Male 4:18 PM EST Gender Identity Not on file Sexual Orientation Not on file documented as of this encounter Plan of Treatment Not on file documented as of this encounter Procedures Procedure Name Priority Date/Time Associated Diagnosis Comments TISSUE EXAM Routine 02/26/2025 Elevated prostate specific antigen (PSA) documented in this encounter Results * Tissue Exam (02/26/2025) Final Diagnosis A. Prostate, Left Mid Sanford Biopsy: - Benign prostatic tissue. B. Prostate, Left Lat Sanford Biopsy: - Benign prostatic tissue. C. Prostate, Left Mid Mid Biopsy: - Benign prostatic tissue. D. Prostate, Left Lat Sanford Biopsy: - Benign prostatic tissue. E. Prostate, Left Mid Base Biopsy: - Benign prostatic tissue. F. Prostate, Left Lat Base Biopsy: - Benign prostatic tissue. G. Prostate, Left Anterior Transition Zone at Mid-gland to Sanford Biopsy: - Prostatic acinar adenocarcinoma (conventional type), grade group 2 (Nessa score 3+4=7). - Percentage pattern 4: 10%. - Tumor continuously involves 55% of 1 of 1 tissue core. H. Prostate, Right Mid Sanford Biopsy: - Benign prostatic tissue. I. Prostate, Right Lat Sanford Biopsy: - Benign prostatic tissue. J. Prostate, Right Mid Mid Biopsy: - Benign prostatic tissue. K. Prostate, Right Lat Mid Biopsy: - Benign prostatic tissue. L. Prostate, Right Mid Base Biopsy: - Benign prostatic tissue. M. Prostate, Right Lat Base Biopsy: - Benign prostatic tissue. 02/28/2025 4:23 PM EDT [facility] Clinical Information Elevated PSA PSA: 3.37 (11/08/24) [id number] 02/28/2025 4:23 PM [facility] Gross Description A. Prostate, Left Mid Sanford Biopsy: Received, properly labeled, are two H and E stained slides and two unstained slides. B. Prostate, Left Lat Sanford Biopsy: Received, properly labeled, are two H and E stained slides and two unstained slides. C. Prostate, Left Mid Mid Biopsy: Received, properly labeled, are two H and E stained slides and two unstained slides. D. Prostate, Left Lat Sanford Biopsy: Received, properly labeled, are two H and E stained slides and two unstained slides. E. Prostate, Left Mid Base Biopsy: Received, properly labeled, are two H and E stained slides and two unstained slides. F. Prostate, Left Lat Base Biopsy: Received, properly labeled, are two H and E stained slides and two unstained slides. G. Prostate, Left Anterior Transition Zone at Mid-gland to Sanford Biopsy: Received, properly labeled, are two H and E stained slides and two unstained slides. H. Prostate, Right Mid Sanford Biopsy: Received, properly labeled, are two H and E stained slides and two unstained slides. I. Prostate, Right Lat Sanford Biopsy: Received, properly labeled, are two H and E stained slides and two unstained slides. J. Prostate, Right Mid Mid Biopsy: Received, properly labeled, are two H and E stained slides and two unstained slides. K. Prostate, Right Lat Mid Biopsy: Received, properly labeled, are two H and E stained slides and two unstained slides. L. Prostate, Right Mid Base Biopsy: Received, properly labeled, are two H and E stained slides and two unstained slides. M. Prostate, Right Lat Base Biopsy: Received, properly labeled, are two H and E stained slides and two unstained slides. /al 02/28/2025 4:23 PM EDT [facility] Disclaimer Unless otherwise specified, all tissue is 10% NB formalin fixed and paraffin embedded. Technical pathology services provided by [facility] at [address] [place] [address] [address], [place] [address] (CLIA #[id number]/Cassy Tran MD, Equity Analyst) 02/28/2025 4:23 PM EDT [facility] Tissue Prostate / Unknown 02/26/20252024 3:03 PM EDT Tissue specimen (specimen) Prostate / Unknown 02/26/2025 02/26/2025 3: 06 PM EDT Tissue specimen (specimen) Prostate / Unknown 02/26/2025 02/26/2025 3: 06 PM EDT Tissue specimen (specimen) Prostate / Unknown 02/26/2025 02/26/2025 3: 06 PM EDT Tissue specimen (specimen) Prostate / Unknown 02/26/2025 02/26/2025 3: 06 PM EDT Tissue specimen (specimen) Prostate / Unknown 02/26/2025 02/26/2025 3: 06 PM EDT Tissue specimen (specimen) Prostate / Unknown 02/26/2025 02/26/2025 3: 06 PM EDT Tissue specimen (specimen) Prostate / Unknown 02/26/2025 02/26/2025 3: 06 PM EDT Tissue specimen (specimen) Prostate / Unknown 02/26/2025 02/26/2025 3: 06 PM EDT Tissue specimen (specimen) Prostate / Unknown 02/26/2025 02/26/2025 3: 06 PM EDT Tissue specimen (specimen) Prostate / Unknown 02/26/2025 02/26/2025 3: 06 PM EDT Tissue specimen (specimen) Prostate / Unknown 02/26/2025 02/26/2025 3: 06 PM EDT Tissue specimen (specimen) Prostate / Unknown 02/26/2025 02/26/2025 3: 06 PM EDT us Clint Kline MD LAB PATHOLOGY ORDERABLES Final Result [facility] [address] [place] [address], documented in this encounter Visit Diagnoses Diagnosis Elevated prostate specific antigen (PSA) documented in this encounter Care Teams Petrography Teacher Relationship Specialty Start Date End Date Jose G Schaefer MD [address] [place] [address] [address] [place] [address] PCP - General Internal Medicine 02/26/25 documented as of this encounter
--- OUTSIDE RECORDS SUMMARY | 2025-04-09 08:02 | XMS_ITS | Patient Health Record ---
Author Organization Jose G Schaefer MD Address [address] [place], [place] [id number] Care Team Providers Care Copy Room Technician Name Role Phone Jose G Schaefer Primary Care Provider [phone] Allergies Allergen (clinical drug ingredient) Drug/Non Drug Allergy documented on EMR Reaction Allergy Type Onset Date Status raw eggs (uncoded) hives Allergy A ctive lobster, shellfish (uncoded) hives Allergy Active Nuts (uncoded) anaphylaxis Allergy Act ana Results Component Value Reference Range Notes PSA,Total (Free>4and<10) Reviewed date:04/18/2024 01:04:10 PM Interpretation: Performing Lab:[facility], [address] [place] [phone] Notes/Report: PSA,Total (Free>4and<10) 2.35 0.00-4.00 ng/mL A [...] ff Reviewed date:07/05/2024 04:21:41 PM Interpretation: Performing Lab:[facility], [address] [place] [phone] Notes/Report: White Blood Count 7.4 4.8-10.8 X10*3/uL [...] 0.0-0.2 /100WBC Neutrophils Absolute Auto 3.8 2.0-8.3 x10*3/uL Imm Gran Abs Auto 0.03 0.00-0.03 X10*3/uL Lymphocytes Absolute Auto 2.3 1.2-4.9 X10*3/uL Monocytes Absolute Auto 1.0 0.1-1.2 X10*3/uL Eosinophils Absolute Auto 0.2 0.0-0.4 X10*3/uL Basophils Absolute Auto 0.1 0.0-0.2 X10*3/uL NRBC Abs Auto 0.000 0.0-0.012 X10*3/uL Comprehensive [place]. Panel Fa st Reviewed date:07/05/2024 04:22:48 PM Interpretation: Performing Lab:[facility], [address] [place] [phone] Notes/Report: Sodium 142 135-145 mmol/L Potassium 3.8 [...] Panel Reviewed date:07/05/2024 04:18:22 PM Interpretation: Performing Lab:[address] [phone] Notes/Report: Triglycerides 125 <150 mg/dL Desirable Triglyceride: [...] date:07/22/2024 06:02:50 PM Interpretation:see back 07-22-24 Performing Lab:[facility], [address] [place] [phone] Notes/Report: PSA,Total (Free>4and<10) 3.37 0.00-4.00 ng/mL A [...] t Reviewed date:07/05/2024 04:21:58 PM Interpretation: Performing Lab:[facility], [address] [place] [phone] Notes/Report: Urine, Clean Catch Color Urine Dark Yellow Appearance Urine Cloudy PH 5.5 5.0-9.0 Glucose Urine UA Negative Negative mg/dL Urine Blood Negative Negative Specific [place] - Urine 1.025 1.005-1.025 Urine Protein 30 [...] Panel Reviewed date:07/22/2024 05:45:39 PM Interpretation: Performing Lab:[facility], [address] [place] [phone] Notes/Report: Triglycerides 118 <150 mg/dL Desirable Triglyceride: [...] low results in patients with liver disease. Lipid Panel Reviewed date:10/28/2024 11:05:37 AM Interpretation: Performing Lab:[address] [phone] Notes/Report: Triglycerides 118 <150 mg/dL Desirable Triglyceride: [...] Reviewed date:11/07/2024 08:04:03 AM Interpretation:JOSR 11/05 Performing Lab:[address] [phone] Notes/Report: PSA,Total (Free>4and<10) 3.54 0.00-4.00 ng/mL A [...] Tatum Alinity i Chemiluminescent Microparticle Immunoassay (CMIA) Pathology Reviewed date:01/28/2025 05:14:48 PM Interpretation: Performing Lab:[facility], [address] [place] [phone] Notes/Report: ------ Name: Kushal Martinez Age/Sex: 59/M : 1965 Unit#: [id number] Attend Dr: Bryce Bower MD Re01/24/25 Status : [facility] Location: [facility] Disch: ------ SPEC : [id number] RECD : 01/24/25 STATUS: BLU LEW NUM: [id number] [place]: 01/24/25 [facility] DR: Bryce Bower MD ENTERED: 01/24/25- 34 SP TYPE: Surgical OTHR DR: Jose G Schaefer MD ORDERED: HE Stain/9, Gross Micro L4/3 Diagnosis A. Colon, ascending, polypectomy: Fragments of sessile serrated lesion/polyp; negative for cytologic dysplasia. B. Colon, transverse , polypectomies: Fragments of sessile serrated lesions/polyps; negative for cytolog ic dysplasia. C. Colon, 20 cm, polypectomies: Hyperplastic mucosal polyps. Clinical History Pre-Op Dx: Screening Post-Op Dx: Colon po lyps, diverticulosis, hemorrhoids Microscopic Description A-C. Microscopic sec tions reviewed. Material Received A. Ascending colon polyp B. Transverse colon polyps C. Polyps at 20 cm Gross Description Received in 3 parts. A. Received in [place] labeled ?ascending colon polyp? are 3 fragments of caldera-white soft tissue measuring 0.2 -0.5 cm in greatest dimension which are wrapped in lens paper and entirely submitted f or microscopic examination, 3 pieces in cassette A. B. Received in [place] labeled ?transverse colon polyps? are fragments of pink-white and pink caldera tissue rang ing from 0.3-0.6 cm in greatest dimension, forming an aggregate measuring 1.5 x 1.2 x 0.2 cm which is wrapped in lens paper and entirely submitted for microscopic examinat ion, multiple pieces in cassette B. C. Received in [place] labeled ?polyps at 20? are 2 fragments of caldera-white soft tissue measuring 0.1 and 0. 2 cm in greatest dimension which are wrapped in lens paper and entirely submitted for micros copic examination, 2 pieces in cassette C. ([facility]) CONTINUED ON NEXT PAGE ------ Name: Kushal Martinez Age/Sex: 59/M : 1965 Unit#: [id number] Attend Dr: Bryce Bower MD Re01/24/25 Status : [facility] Location: [facility] Disch: ------ SPEC : [id number] RECD : 01/24/25 STATUS: BLU LEW NUM: [id number] [place]: 01/24/25 [facility] DR: Bryce Bower MD ENTERED: 01/24/25 34 SP TYPE: Surgical OTHR DR: Jose G Schaefer MD ORDERED: HE Stain/9, Gross Micro L4/3 IHC S/NG Disclaimer NOTE: Unless otherwi se stated, all tissue is formalin-fixed and paraffin-embedded. Some or all of the immunohistochemical tests reported herein may have been developed and their performance characteristics determined by [facility]. They have not been cleared or appr kati by the U.S. Food and Drug Administration (FDA). However, the FDA has determined that such clearance or approval is not necessary. This laboratory is certified under the Clinical Laboratory Improvement Amendments of 1988 (CLIA) as qualified to perform high comp lexity clinical laboratory testing. Copies To: Jose G Schaefer MD [facility] [address] [place] [address] [address] [place] [address] Bryce Bower MD [address] [place] [address] ------ Signed (signature on file) Kaleb Stoner MD 01/27/25 1416 ------ END OF REPORT Reason For Referral Reason PSA Elevation Diagnosis [...] Referral Priority Routine Referral Appointment Date 02/17/2025 Medications Medication SIG (Take, Route, Frequency, Duration) [...] Problem Status W/U Status Risk Notes Problem Malignant tumor of prostate (582542832) Prostate cancer (C61) Active confirmed Problem Asthma (526193998) Asthma (J45.909) Active confirmed Problem 844986891 Elevated cholesterol/high density lipoprotein ratio (E78.6) Active confirmed Problem 05277747 Elevated cholesterol (E78.00) Active confirmed Vital Signs Blood pressure diastolic 60 mm Hg 03/28/2025 Height 68 in 03/28/2025 Blood pressure systolic 122 mm Hg 03/28/2025 Weight 206 lbs 03/28/2025 BMI 31.32 kg/m2 03/28/2025 Encounters Encounter Location Date Provider Diagnosis Jose G Schaefer MD [address] [place] [id number] 04/18/2024 Jose G Schaefer Rising PSA level R97.20 Jose G Schaefer MD [address] [place] [address] [id number] 07/05/2024 Jose G Schaefer Blood tests for routine general physical examination Z00.00 Jose G Schaefer MD [address] [place] [address] Drive [address] [place] [address] [id number] 10/28/2024 Jose G Schaefer Elevated cholesterol E78.00 and PSA elevation R97.20 Jose G Schaefer MD [address] [place] [address] [id number] 07/22/2024 Jose G Schaefer Elevated cholesterol E78.00 ; Annual physical exam Z00.00 ; PSA elevation R97.20 ; Colon cancer screening Z12.11 and Depression screening Z13.31 Jose G Schaefer MD [address] [place] [address] [id number] 11/05/2024 Jose G Schaefer Elevated PSA R97.20 Jose G Schaefer MD [address] [place] [address] [id number] 03/25/2025 Jose G Schaefer Asthma J45.909 and Prostate cancer C61 Jose G Schaefer MD [address] [place] [address] [id number] 03/28/2025 Jose G Schaefer Shortness of breath R06.02 and Prostate cancer C61 Jose G Schaefer MD [address] [place] [address] [id number] 03/28/2025 Jose G Schaefer MD [address] [place] [address] [id number] 12/27/2024 Jose G Schaefer MD [address] [place] [address] [id number] 03/11/2025 Jose G Schaefer Assessments Encounter Date Diagnosis (ICD Code) Assessment Notes Treatment Notes Treatment Clinical Notes Section Notes 04/18/2024 Rising PSA level (ICD-10 - R97.20) 07/05/2024 Blood tests for routine general physical examination (ICD-10 - Z00.00) 10/28/2024 Elevated cholesterol (ICD-10 - E78.00) 07/22/2024 Elevated cholesterol (ICD-10 - E78.00) stable, will continue current regiment 07/22/2024 Annual physical exam (ICD-10 - Z00.00) labs reviewed and discussed with patient 11/05/2024 Elevated PSA (ICD-10 - R97.20) discussed recent lab report and continue rise in PSA level, he is going to call dr heaton and get mri/ send referral to dr heaton 03/25/2025 Asthma (ICD-10 - J45.909) 03/25/2025 Prostate cancer (ICD-10 - C61) 03/28/2025 Shortness of breath (ICD-10 - R06.02) seems mostly likely lung since it is there all the time and heard a little wheeze when he used his inhaler. / order faxed to [facility] CS dept 10/28/2024 PSA elevation (ICD-10 - R97.20) 07/22/2024 PSA elevation (ICD-10 - R97.20) will continue to monitor, labs pending 03/28/2025 Prostate cancer (ICD-10 - C61) we discussed the outcome of his visit with the urologist and i [facility] a better understanding of the options 07/22/2024 Colon cancer screening (ICD-10 - Z12.11) guaiac negative 07/22/2024 Depression screening (ICD-10 - Z13.31) negative screen Plan Of Treatment Pending Test Test Name Order Date Electrocardiogram (EKG) 08/23/2019 CA stress test 03/28/2025 Next Appt Details Provider Name:Jose G Cooper ier, 05/02/2025 02:00:00 PM, [address] [place] [address], [address], [phone], Provider Name:Jose G Cooper ier, 07/15/2025 07:15:00 AM, [address] [place] [address], [address], [phone], Provider Name:Jose G Cooper ier, 07/24/2025 02:30:00 PM, [address] [place] [address], [address], [phone], Provider Name:Jose G Cooper ier, 03/30/2026 07:00:00 AM, [address] [place] [address], [address], [phone], Insurance Providers Payer Name Payer Address Payer Phone Subscriber Number Group Number Insured Name Patient Relationship to Insured Coverage Start Date Coverage End Date [employer] Choice [address] [address] Margi bojorquez ROSA [phone] [id number] Kushal Martinez Self - patient is the insured
--- OUTSIDE RECORDS SUMMARY | 2025-04-09 08:03 | XMS_ITS | Clinical Summary ---
Author Organization [address] [facility] Address [address] [place] [phone] Phone Care Team Providers Care Enterprise Security Architect Name Role Phone Jose G Schaefer MD Primary Care Provider Encounters Date Type Department Care Team Description 02/26/2025 Lab Requisition [facility] - Main Lab [address] [facility] [place] [employer] [place] [address] Clint Kline MD Elevated prostate specific antigen (PSA) from Last 3 Months Social History Tobacco Use Types Packs/Day Years Used Date Smoking Tobacco: Never Assessed Sex and Gender Information Value Date Recorded Sex Assigned at Not on file Legal Sex Male 4:18 PM EST Gender Identity Not on file Sexual Orientation Not on file Plan of Treatment Health Maintenance Due Date Last Done Comments DTaP,Tdap,and Td Vaccines (1 - Tdap) 1984 Hepatitis B Vaccines (1 of 3 - 19+ 3-dose series) 1984 Pneumococcal Vaccine: 50+ Ye ars (1 of 1 - PCV) 2015 Zoster Vaccines (1 of 2) 2015 Depression Screening 07/17/2024 Cholesterol Screening (Lipid Panel) 02/27/2025 Colorectal Cancer Screening: Colonoscopy 02/27/2025 HIV Screening 02/27/2025 Hepatitis C Screening 02/27/2025 Social Influencers of Health Screening 02/27/2025 COVID-19 Vaccine ( - 2023-2 5 season) 2025 Influenza Vaccine (#1) 2025 RSV Immunization Adult Patie nts (1 - 1-dose 75+ series) 2040 HIB Vaccines Aged Out No longer eligi ble based on patient's age to complete this topic HPV Vaccines Aged Out No longer eligi ble based on patient's age to complete this topic Hepatitis A Vaccines Aged Out No long er eligible based on patient's age to complete this topic IPV Vaccines Aged Out No longer eligi ble based on patient's age to complete this topic MMR Vaccines Aged Out No longer eligi ble based on patient's age to complete this topic Meningococcal ACWY Vaccine Aged Out N o longer eligible based on patient's age to complete this topic Meningococcal B Vaccine Aged Out No l onger eligible based on patient's age to complete this topic RSV Immunization Patients Un irina 20 months Aged Out No longer eligible b ased on patient's age to complete this topic Varicella Vaccines Aged Out No longer eligible based on patient's age to complete this topic Procedures Procedure Name Priority Date/Time Associated Diagnosis Comments TISSUE EXAM Routine 02/26/2025 Elevated prostate specific antigen (PSA) from Last 3 Months Results * Tissue Exam (02/26/2025) Final Diagnosis A. Prostate, Left Mid [place] Biopsy: - Benign prostatic tissue. B. Prostate, Left Lat [place] Biopsy: - Benign prostatic tissue. C. Prostate, Left Mid Mid Biopsy: - Benign prostatic tissue. D. Prostate, Left Lat [place] Biopsy: - Benign prostatic tissue. E. Prostate, Left Mid Base Biopsy: - Benign prostatic tissue. F. Prostate, Left Lat Base Biopsy: - Benign prostatic tissue. G. Prostate, Left Anterior Transition Zone at Mid-g[place] to [place] Biopsy: - Prostatic acinar adenocarcinoma (conventional type), grade group 2 (Driftwood score 3+4=7). - Percentage pattern 4: 10%. - Tumor continuously involves 55% of 1 of 1 tissue core. H. Prostate, Right Mid [place] Biopsy: - Benign prostatic tissue. I. Prostate, Right Lat [place] Biopsy: - Benign prostatic tissue. J. Prostate, Right Mid Mid Biopsy: - Benign prostatic tissue. K. Prostate, Right Lat Mid Biopsy: - Benign prostatic tissue. L. Prostate, Right Mid Base Biopsy: - Benign prostatic tissue. M. Prostate, Right Lat Base Biopsy: - Benign prostatic tissue. 02/28/2025 4:23 PM EDT [facility] ([facility] Clinical Information Elevated PSA PSA: 3.37 (11/08/24) [id number] 02/28/2025 4:23 PM T [facility] Gross Description A. Prostate, Left Mid [place] Biopsy: Received, properly labeled, are two H and E stained slides and two unstained slides. B. Prostate, Left Lat [place] Biopsy: Received, properly labeled, are two H and E stained slides and two unstained slides. C. Prostate, Left Mid Mid Biopsy: Received, properly labeled, are two H and E stained slides and two unstained slides. D. Prostate, Left Lat [place] Biopsy: Received, properly labeled, are two H [...] Left Anterior Transition Zone at Mid-g[place] to [place] Biopsy: Received, properly labeled, are two H and E stained slides and two unstained slides. H. Prostate, Right Mid [place] Biopsy: Received, properly labeled, are two H and E stained slides and two unstained slides. I. Prostate, Right Lat [place] Biopsy: Received, properly labeled, are two H [...] two unstained slides. /al 02/28/2025 4:23 PM T [facility] Disclaimer Unless otherwise specified, all tissue is 10% NB formalin fixed and paraffin embedded. Technical pathology services provided by [facility] at [address], [place] [address] (CLIA #[id number]/Cassy Tran MD, Fire Protection Equipment Technician) 02/28/2025 4:23 PM EDT [facility] Tissue Prostate / Unknown 02/26/20252024 [...] Unknown 02/26/2025 02/26/2025 3: 06 PM EDT Clint Kline MD LAB PATHOLOGY ORDERABLES Final Result [facility] ([facility] [address] [place] [address], from Last 3 Months Insurance [employer] Care Teams Enterprise Security Architect Relationship Specialty Start Date End Date Jose G Schaefer MD [address] [place] [address] [place] [id number] PCP - General Internal Medicine 02/26/25
== END ==
LOC: HO.CARD 07:57
PROVIDERS: PCP Internal Medicine; Visit Provider Internal Medicine
DX: R06.02 Shortness of breath (principal)
CPT/HCPCS: 93005; 93017

== ENCOUNTER 2025-04-09 13:56 | Outpatient (AMB) | payer OTHER, SELFPAY ==
[2025-04-09 14:02] VITALS: BP 120/70; PULSE 79; BMI 30.4
--- NOTE | 2025-04-09 14:02 | MHC.OFFVIS ---
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 Patient is a 59-year-old male with prior history of hyperlipidemia on statin, moderate dose as well as family history for premature coronary artery disease in his mom and maternal grandfather. Patient has been having symptoms of exertional chest tightness and shortness of breath. He today came in for an outpatient stress test and this was positive with in the 1st stage in 2 minutes starting heavy chest tightness 2 out of 10 which became significant in the 2nd stage along with ST-depression and drop in his blood pressure. Siu treadmill score is -12. Patient on 20 mg of atorvastatin. Last LDL in the system in October at 114 mg/dL. Patient comes in for an urgent visit to discuss stress test. He was planning to travel out of country tomorrow to [place]. [facility] Medical History Elevated cholesterol Tubular adenoma Family history of colon cancer Surgical History H/O colonoscopy Family History Father No problems noted. Mother No problems noted. Social History Patient Tobacco Use Status: Never used Tobacco Review of Systems Const Denies chills, Denies daytime sleepiness, Denies fatigue, Denies fever(s), Denies frequent falls, Denies poor appetite, Denies snoring, Denies stops breathing during sleep, Denies weakness, Denies weight gain and Denies weight loss Eyes Denies loss of vision ENT Denies dizziness and Denies hearing loss Card Reports chest pain with activity, Denies claudication, Denies leg edema, Denies lightheadedness, Denies palpitations, Denies dyspnea, Reports dyspnea on exertion and Denies orthopnea Resp Denies cough, Denies excessive phlegm production, Denies dyspnea, Reports dyspnea on exertion, Denies snoring and Denies wheezing GI Denies abdominal pain, Denies hematochezia, Denies change in bowel habits, Denies nausea and Denies vomiting Denies dysuria and Denies urinary frequency Musc Denies arthralgias, Denies muscle weakness and Denies numbness Skin/Breast Denies nail changes and Denies rash Neuro Denies Abnormal speech present, Denies dizziness, Denies frequent falls, Denies loss of vision, Denies memory loss, Denies numbness and Denies weakness Psych Denies depression and Denies memory loss Endo Denies fatigue and Denies palpitations Vincent/Lymph Reports easy bruising and Reports other (anemia) Aller/Immun Denies wheezing Physical Exam Vital Signs: BMI result Body Mass Index 30.4 Const General: cooperative, comfortable, no acute distress, alert, awake and Physically active Nutritional Appearance: overweight Orientation/consciousness: patient oriented x3 Limitations: no limitations HEENT Head: Yes normocephalic and Yes atraumatic Neck Neck: Yes trachea midline, Yes supple and Yes no JVD Resp Effort & Inspection: normal respiratory effort Auscultation: clear to auscultation bilaterally Cardio Jugular venous distension: no JVD Palpation: normal PMI Rate: regular rate Rhythm: regular rhythm Heart sounds: S1 normal heart sound present, S2 normal heart sound present, no click, no gallops and no murmurs Bruits: no carotid bruits Peripheral pulses: Peripheral pulses 2+ throughout GI Auscultation: normal bowel sounds Skin General skin exam: no rashes or lesions noted Neuro General: patient oriented x3 and no focal motor deficits Speech: No Abnormal speech present Extrem General: Yes no clubbing, cyanosis or edema Psych Appearance: grossly normal Affect: Anxious affect present Office Procedures EKG Details: EKGs shows normal sinus rhythm with T-wave changes in inferior lead which could represent ischemia 89447-Aucbirxmuqsuvxuom, Complete Assessment & Plan Assessment & Plan (1) Crescendo angina: Code(s): I20.0 - Unstable angina Category: Medical Plan: Crescendo angina in this middle-aged man with strong family history for premature coronary artery disease as well as personal history of hyperlipidemia with significantly abnormal stress test with multiple negative prognostic indicators including drop in blood pressure with exercise as well as Siu treadmill score of -12. He has no prior history of myocardial infarction no Q-waves. There is high likelihood of underlying significant coronary disease including left main coronary artery disease. I have advised him not to travel at this point in time. I have advised him to increase atorvastatin to 80 mg daily for which I will provide him prescription. Also started on low-dose aspirin therapy and also started on metoprolol therapy to reduce myocardial ischemic demand. Will set him up for cardiac catheterization in near future. We discussed in details about the procedure of cardiac catheterization including risk, alternatives and benefits. He understands agrees. Possible outcomes were discussed including need for intervention either percutaneous or surgical. He understands and agrees. I have advised him to avoid any significant exertion till the cardiac catheterization in his performed. I have advised him to seek emergency care if he has significant symptoms at rest. Will obtain an echocardiogram in the near future prior to cardiac catheterization to assess LV function. Greater than 40 minutes was spent in overall discussing the test results and future plan. He understands. Thank you for allowing me to partake in his care Coding Level of Care Code New Pt Level 5 (91041) Complex EM visit Add On G2211 Diagnoses Crescendo angina I20.0 CPT Codes EKG - CPT: 38037-Yjsgmpvaoccrfeote, Complete ([id number])
--- OUTSIDE RECORDS SUMMARY | 2025-04-09 16:28 | XMS_ITS | Clinical Summary ---
Author Organization [address] [facility] Address [address] [place] [phone] Phone Care Team Providers Care Medical Reception Specialist Name Role Phone Jose G Schaefer MD Primary Care Provider Encounters Date Type Department Care Team Description 02/26/2025 Lab Requisition [facility] - Main Lab 299 [facility] [place] [address] Clint Kline MD Elevated prostate [...] (02/26/2025) Final Diagnosis A. Prostate, Left Mid [place] Biopsy: - Benign prostatic tissue. B. Prostate, Left Lat [place] Biopsy: - Benign prostatic tissue. C. Prostate, Left Mid [place] Biopsy: - Benign prostatic tissue. D. Prostate, Left Lat [place] Biopsy: - Benign prostatic tissue. E. Prostate, Left Mid [place] Biopsy: - Benign prostatic tissue. F. Prostate, Left Lat [place] Biopsy: - Benign prostatic tissue. G. Prostate, Left Anterior Transition Zone at [place] to [place] Biopsy: - Prostatic acinar adenocarcinoma (conventional type), grade group 2 ([place] score 3+4=7). - Percentage pattern 4: 10%. - Tumor continuously involves 55% of 1 of 1 tissue core. H. Prostate, Right Mid [place] Biopsy: - Benign prostatic tissue. I. Prostate, Right Lat [place] Biopsy: - Benign prostatic tissue. J. Prostate, Right Mid Mid Biopsy: - Benign prostatic tissue. K. Prostate, Right Lat Mid Biopsy: - Benign prostatic tissue. L. Prostate, Right Mid [place] Biopsy: - Benign prostatic tissue. M. Prostate, Right Lat [place] Biopsy: - Benign prostatic tissue. 02/28/2025 4:23 PM EDT [facility] ([facility]) [facility] Clinical Information Elevated PSA PSA: 3.37 (11/08/24) [id number] 02/28/2025 4:23 PM T [facility] Gross Description A. Prostate, Left Mid [place] Biopsy: Received, properly labeled, are two H and E stained slides and two unstained slides. B. Prostate, Left Lat [place] Biopsy: Received, properly labeled, are two H and E stained slides and two unstained slides. C. Prostate, Left Mid [place] Biopsy: Received, properly labeled, are two H and E stained slides and two unstained slides. D. Prostate, Left Lat [place] Biopsy: Received, properly labeled, are two H [...] Left Anterior Transition Zone at [place] to [place] Biopsy: Received, properly labeled, are two H and E stained slides and two unstained slides. H. Prostate, Right Mid [place] Biopsy: Received, properly labeled, are two H and E stained slides and two unstained slides. I. Prostate, Right Lat [place] Biopsy: Received, properly labeled, are two H [...] unstained slides. /al 02/28/2025 4:23 PM T [facility] Disclaimer Unless otherwise specified, all tissue is 10% NB formalin fixed and paraffin embedded. Technical pathology services provided by [facility] at [address], [place] [address] (CLIA #[id number]/Cassy Tran MD, Superintendent Division) 02/28/2025 4:23 PM EDT [facility] [...] Kline MD LAB PATHOLOGY ORDERABLES Final Result [facility] ([facility]) [facility] [address] [place] [address], from Last 3 Months Insurance [employer] Care Teams Medical Reception Specialist Relationship Specialty Start Date End Date Jose G Schaefer MD [address] [place] [address] [place] [phone] PCP - General Internal Medicine 02/26/25
--- OUTSIDE RECORDS SUMMARY | 2025-04-09 16:28 | XMS_ITS | Encounter Summary ---
Author Organization [facility] Address [address] [place] [address] Care Team Providers Care Utility Specialist Name Role Phone Jose G Schaefer MD Primary Care Provider Encounter Details Date Type Department Care Team (Late st Contact Info) Description 02/26/2025 Lab Requisition [facility] - Main Lab 299 [facility] [place] [address] Clint Kline MD [address] [place] [address] Elevated prostate specific antigen (PSA) [...] (02/26/2025) Final Diagnosis A. Prostate, Left Mid [place] Biopsy: - Benign prostatic tissue. B. Prostate, Left Lat [place] Biopsy: - Benign prostatic tissue. C. Prostate, Left Mid Mid Biopsy: - Benign prostatic tissue. D. Prostate, Left Lat [place] Biopsy: - Benign prostatic tissue. E. Prostate, Left Mid [place] Biopsy: - Benign prostatic tissue. F. Prostate, Left Lat [place] Biopsy: - Benign prostatic tissue. G. Prostate, Left Anterior Transition Zone at [place] to [place] Biopsy: - Prostatic acinar adenocarcinoma (conventional type), grade group 2 ([place]essa score 3+4=7). - Percentage pattern 4: 10%. - Tumor continuously involves 55% of 1 of 1 tissue core. H. Prostate, Right Mid [place] Biopsy: - Benign prostatic tissue. I. Prostate, Right Lat [place] Biopsy: - Benign prostatic tissue. J. Prostate, Right Mid [place] Biopsy: - Benign prostatic tissue. K. Prostate, Right Lat Mid Biopsy: - Benign prostatic tissue. L. Prostate, Right Mid [place] Biopsy: - Benign prostatic tissue. M. Prostate, Right Lat [place] Biopsy: - Benign prostatic tissue. 02/28/2025 4:23 PM EDT [facility] Clinical Information Elevated PSA PSA: 3.37 (11/08/24) [id number] 02/28/2025 4:23 PM [facility] Gross Description A. Prostate, Left Mid [place] Biopsy: Received, properly labeled, are two H and E stained slides and two unstained slides. B. Prostate, Left Lat [place] Biopsy: Received, properly labeled, are two H and E stained slides and two unstained slides. C. Prostate, Left Mid [place] Biopsy: Received, properly labeled, are two H and E stained slides and two unstained slides. D. Prostate, Left Lat [place] Biopsy: Received, properly labeled, are two H [...] Left Anterior Transition Zone at [place] to [place] Biopsy: Received, properly labeled, are two H and E stained slides and two unstained slides. H. Prostate, Right Mid [place] Biopsy: Received, properly labeled, are two H and E stained slides and two unstained slides. I. Prostate, Right Lat [place] Biopsy: Received, properly labeled, are two H [...] unstained slides. /al 02/28/2025 4:23 PM EDT [facility] Disclaimer Unless otherwise specified, all tissue is 10% NB formalin fixed and paraffin embedded. Technical pathology services provided by [facility] at [address] [place] [address] [address], [place] [address] (CLIA #[id number]/Cassy Tran MD, Type Copy Examiner) 02/28/2025 4:23 PM EDT [facility] Tissue Prostate / Unknown 02/26/20252024 3:03 [...] PATHOLOGY ORDERABLES Final Result [facility] ([facility]) [facility] [address] [place] [address], documented in this encounter Visit Diagnoses Diagnosis Elevated prostate specific antigen (PSA) documented in this encounter Care Teams Utility Specialist Relationship Specialty Start Date End Date Jose G Schaefer MD [address] [place] [address] Drive [address] [place] [phone] PCP - General Internal Medicine 02/26/25 documented as of this encounter
== END 2025-04-09 15:36 | disposition home or self-care (01) ==
LOC: HO.HCS 13:57
PROVIDERS: PCP Internal Medicine; Visit Provider Internal Medicine Cardiovascular Disease
DX: I20.0 Unstable angina (principal); Z82.49 Family history of ischemic heart disease and other diseases of the circulatory system; R07.9 Chest pain, unspecified; R94.31 Abnormal electrocardiogram [ECG] [EKG]
CPT/HCPCS: 93010; 93016; 93018; 99215; G2211

== ENCOUNTER 2025-04-09 14:56 | Outpatient (REF) | payer OTHER, SELFPAY ==
[2025-04-09 15:50] LABS: Hematocrit 48.5 % (42.0-52.0); Hemoglobin 15.5 g/dl (14.0-18.0); Mean Corpuscular HGB Conc 32.0 g/dl (31.0-36.0); Mean Corpuscular Hemoglobin 27.1 pg (27.0-33.0); Mean Corpuscular Volume 84.6 fL (80.0-98.0); NRBC Abs Auto 0.000 X10*3/uL (0.0-0.012); NRBC Pct Auto 0.0 /100WBC (0.0-0.2); Platelet Count 212 X10*3/uL (160-400); Red Blood Count 5.73 X10*6/uL (4.60-5.80); White Blood Count 7.5 X10*3/uL (4.8-10.8)
[2025-04-09 15:57] LABS: INTERNATIONAL NORM RATIO 1.0 (0.9-1.1); Prothrombin Time 11.3 SEC (10.9-12.4)
[2025-04-09 16:17] LABS: Anion Gap 14 (12-20); Blood Urea Nitrogen 18 mg/dL (9-16); Calcium 9.8 mg/dL (8.4-10.2); Carbon Dioxide 27 mmol/L (22-29); Chloride 103 mmol/L (96-108); Estimated Glomerular Filt Rate > 60; Potassium 4.3 mmol/L (3.3-5.1); Sodium 140 mmol/L (135-145)
== END 2025-04-09 14:57 | disposition home or self-care (01) ==
LOC: HO.LAB 14:56
PROVIDERS: PCP Internal Medicine; Visit Provider Internal Medicine Cardiovascular Disease
DX: I20.0 Unstable angina (principal)
CPT/HCPCS: 36415; 80048; 85027; 85610

== ENCOUNTER → 2025-04-10 13:42 | Outpatient (REF) | payer OTHER, SELFPAY ==
--- OUTSIDE RECORDS SUMMARY | 2025-01-24 03:30 | XMS_ITS ---
Author Organization [facility] Address [address] [place] [phone] Care Team Providers Care Hydrographic Engineer Name Role Phone Olive ELIZABETH, Jose G Primary Care Provider Bryce Moreau [phone] REASON FOR VISIT family hx of colon cancer,hx of adenomatous polyp, screening for malignant neoplasm of the colon, serrated polyp of the colon,preprocedural exam Encounters Encounter Location Date Provider Diagnosis [facility] [place] [address] [place] [phone] 01/24/2025 Bryce Bower Plan Of Treatment No Information Progress Notes * EZEKIEL SUAREZ MDOB:[birth year] (59 yo M)Acc No.[id number]:01/24/2025 COLON WITH MAC Patient: Justa ROCHAEZEKIEL Provider: Yessica Bower MD :1965 A ge:59 Y S ex:Male Date:01/24/2025 Address:[address] [place] [address] [facility] Pcp:Jose G Schaefer MD Subjective: * Chief [...] 01/24/2025 Generated for Latesha gonzalez/Vikram/Debbieitting on: 0 04/10/2025 06:14 PM EDT
--- OUTSIDE RECORDS SUMMARY | 2025-03-11 11:13 | XMS_ITS ---
Author Organization Jose G Schaefer MD Address [address] [place] [address] [place] [phone] Care Team Providers Care Educational/Development Assistant Name Role Phone Jose G Schaefer Primary Care Provider REASON FOR VISIT refill Encounters Encounter Location Date Provider Diagnosis Jose G Schaefer MD [address] [place] [address] [place] [phone] 03/11/2025 Jose G Schaefer Plan Of Treatment Next Appt Details Provider Name:Jose G Cooper ier, 05/02/2025 02:00:00 PM, [address] [place] [address], [address], [phone], Provider Name:Jose G Cooper ier, 07/15/2025 07:15:00 AM, [address] [place] [address], [address], [phone], Provider Name:Jose G Cooper ier, 07/24/2025 02:30:00 PM, [address] [place] [address], [address], [phone], Provider Name:Jose G Cooper ier, 03/30/2026 07:00:00 AM, [address] [place] [address], [address], [phone], Progress Notes * Donn MARTINEZ:1965 (59 yo M)Acc No.[id number]:03/11/2025 Patient: Kushal HUANG :1965 A ge:59 Y S ex:Male Address:[address] [place] [address], [facility] [[email or web address] * true * Date: Generated for Latesha gonzalez/Vikram/Karthiksmitting on: 0 04/10/2025 06:15 PM EDT
--- OUTSIDE RECORDS SUMMARY | 2025-03-25 11:00 | XMS_ITS ---
Author Organization Jose G Schaefer MD Address [address] [place], [place] [phone] Care Team Providers Care Credit Coordinator Name Role Phone Jose G Schaefer Primary Care Provider [phone] Allergies Allergen (clinical drug ingredient) Drug/Non Drug [...] Status W/U Status Risk Notes Problem Asthma (142462838) Asthma (J45.909) Active confirmed Problem Malignant tumor of prostate (511480900) Prostate cancer (C61) Active confirmed Vital Signs Blood pressure systolic 172 mm Hg 03/25/20 25 Blood pressure diastolic 84 mm Hg 025 Height 68 in 03/25/2025 Weight 206 lbs 03/25/2025 BMI 31.32 kg/m2 03/25/2025 weight is up 11 pounds since 11-05-24 Encounters Encounter Location Date Provider Diagnosis Jose G Schaefer MD [address] [place] [phone] 03/25/2025 Jose G Schaefer Asthma J45.909 and [...] Provider Name:Jose G hilton, 05/02/2025 02:00:00 PM, [address] [place] [address], [phone], Provider Name:Jose G hilton, 07/15/2025 07:15:00 AM, [address] [place] [address], [phone], Provider Name:Jose G hilton, 07/24/2025 02:30:00 PM, [address] [place] [address], [phone], Provider Name:Jose G hilton, 03/30/2026 07:00:00 AM, [address] [place] [address], [phone], Progress Notes * Kushal MARTINEZDOB:1965 (59 yo M)Acc No.[id number]:03/25/2025 Progress Notes Patient: Justa Kushal ROCHA Provider: Duncan Schaefer MD :1965 A ge:59 Y S ex:Male Date:03/25/2025 Address:[address] [place], [place] [phone] Subjective: * Chief Complaints: * D iscuss [...] MD Date: 0 03/25/2025 Generated for Latesha gonzalez/Vikram/Noelransmitting on: 0 04/10/2025 06:14 PM EDT History and Physical Notes * [...]
--- OUTSIDE RECORDS SUMMARY | 2025-03-28 10:00 | XMS_ITS ---
Author Organization Jose G Schaefer MD Address [address] [place] [phone] Care Team Providers Care Chamber Magistrate Name Role Phone Jose G Schaefer Primary Care Provider [phone] Allergies Allergen (clinical drug ingredient) Drug/Non Drug [...] G Schaefer MD [address] [place] [phone] 03/28/2025 Jose G Schaefer Shortness of breath R06.02 and Prostate cancer C61 Assessments Encounter Date Diagnosis (ICD Code) Assessment Notes Treatment Notes Treatment Clinical Notes Section Notes 03/28/2025 Shortness of breath (ICD-10 - R06.02) seems mostly likely lung since it is there all the time and heard a little wheeze when he used his inhaler. / order faxed to [facility] CS dept 03/28/2025 Prostate cancer (ICD-10 - C61) we discussed the outcome of his visit with the urologist and i have suggested a vist to the [facility] to gain a better understanding of the options Plan Of Treatment Treatment Notes Assessment Notes Shortness of breath seems mostly likely lung since it is there all the time and heard a little wheeze when he used his inhaler. / order faxed to [facility] dept Prostate cancer we discussed the out come of his visit with the urologist and i have suggested a vist to the [facility] to gain a better understanding of the options Pending Test Test Name Order Date CA stress test 03/28/2025 Next Appt Details Follow Up: 4 Weeks, Reason: Provider Name:Jose G hilton, 05/02/2025 02:00:00 PM, [address] [place] [address], [phone], Provider Name:Jose G hilton, 07/15/2025 07:15:00 AM, [address] [place] [address], [phone], Provider Name:Jose G hilton, 07/24/2025 02:30:00 PM, [address] [place] [address], [phone], Provider Name:Jose G hilton, 03/30/2026 07:00:00 AM, [address] [place] [address], [phone], Progress Notes * Kushal MARTINEZDOB:1965 (59 yo M)Acc No.[id number]:03/28/2025 Progress Notes Patient: Justa Kushal ROCHA Provider: Duncan Schaefer MD :1965 A ge:59 Y S ex:Male Date:03/28/2025 Address:[address], [place] Subjective: * Chief Complaints: * 3 day [...] 03/28/2025 Generated for Nawafi lisa/Vikram/eTransmitting on: 0 04/10/2025 06:14 PM EDT History [...]
--- OUTSIDE RECORDS SUMMARY | 2025-03-28 10:32 | XMS_ITS ---
Author Organization Jose G Schaefer MD Address [address] [place] [address] [place] [phone] Care Team Providers Care Telephone Exchange Operator Name Role Phone Jose G Schaefer Primary Care Provider [phone] REASON FOR VISIT Urology referral Encounters Encounter Location Date Provider Diagnosis Jose G Schaefer MD [address] [place] [address] [place] [phone] 03/28/2025 Jose G Schaefer Plan Of Treatment Next Appt Details Provider Name:Jose G hilton, 05/02/2025 02:00:00 PM, [address] [place] [address], [address], [phone], Provider Name:Jose G Cooper ier, 07/15/2025 07:15:00 AM, [address] [place] [address], [address] [place] [address], [phone], Provider Name:Jose G Cooper ier, 07/24/2025 02:30:00 PM, [address] [place] [address], [address], [phone], Provider Name:Jose G hilton, 03/30/2026 07:00:00 AM, [address] [place] [address], [address], [phone], Progress Notes * Donn MARTINEZ:1965 (59 yo M)Acc No.[id number]:03/28/2025 Patient: Justa ROCHA Kushal :1965 A ge:59 Y S ex:Male Address:[address] [place] [address], [place] [address] * * Date:
--- OUTSIDE RECORDS SUMMARY | 2025-04-10 04:30 | XMS_ITS ---
Author Organization Jose G Schaefer MD Address [address] [place] [address] [place] [phone] Care Team Providers Care Cops Name Role Phone Jose G Schaefer Primary Care Provider REASON FOR VISIT refusing appt to go over stress test Encounters Encounter Location Date Provider Diagnosis Jose G Schaefer MD [address] [place] [address] [place] [phone] 04/10/2025 Jose G Schaefer Plan Of Treatment Next Appt Details Provider Name:Jose G hilton, 05/02/2025 02:00:00 PM, [address] [place] [address], [address], [phone], Provider Name:Jose G hilton, 07/15/2025 07:15:00 AM, [address] [place] [address], [address], [phone], Provider Name:Jose G hilton, 07/24/2025 02:30:00 PM, [address] [place] [address], [address], [phone], Provider Name:Jose G hilton, 03/30/2026 07:00:00 AM, [address] [place] [address], [address], [phone], Progress Notes * Kushal MARTINEZDOB:1965 (59 yo M)Acc No.[id number]:04/10/2025 Patient: Kushal HUANG :1965 A ge:59 Y S ex:Male Address:[address] [place] [address] * true * Date: Generated for Latesha gonzalez/Vikram/Karthiksmitting on: 0 04/10/2025 06:14 PM EDT
--- NOTE | 2025-04-10 13:45 | CA_ITS ---
Transthoracic Echocardiogram Patient (Last, First, Middle): Kushal Martinez M Gender: M Date of : 1965 Age: 59 Procedure Date: 04/10/2025 Procedure Type: Transthoracic Echocardiogram Location: OP Height: 172.72 cm Weight: 88.45 kg BSA: 2.02 m2 Heart Rate: bpm BP: 124 / 82 mmHg Community Board Member: TO/RC Referring MD: Ariel Rader MD Symptoms: I20.0 - Unstable angina Study Quality: Adequate w contrast Conclusions: - Essentially normal study with upper limits of normal ascending aortic size Findings Procedure Information Contrast agent, definity, is being given per protocol without apparent complications. Left Ventricle Normal left ventricular size, thickness, and systolic function. The visually estimated ejection fraction is between 55-60%. Spectral Doppler is indicative of a normal filling pattern. Right Ventricle Normal right ventricular cavity size and systolic function. Atria Both atria are normal in size. There is no evidence of interatrial shunt. Aortic Valve Normal aortic valve structure and function. There is no aortic valve stenosis. There is no aortic valve regurgitation. Mitral Valve Normal mitral valve structure and function. There is trace mitral valve regurgitation. There is no mitral valve stenosis. Pulmonic Valve The pulmonic valve is likely normal. Tricuspid Valve Normal tricuspid valve structure. There is trace tricuspid valve regurgitation. The right ventricular systolic pressure is normal. The right ventricular systolic pressure is 16 mmHg. Normal right atrial pressure. There is no evidence of pulmonary hypertension. Great Vessels All visible segments of the aorta are normal in size. The pulmonary artery was not well visualized. There is no dilatation of the ascending aorta measuring 3.50 cm. Venous The inferior vena cava is normal in size and collapses greater than 50% with inspiration. Pericardium/Pleural There is no evidence of pericardial effusion. Prior Study Comparison No prior study available for comparison. Measurements 2D Linear Measurements IVSd: 0.88 0.6-0.9/0.6-1.0 cm LVIDd: 4.68 3.9-5.3/4.2-5.9 cm LVIDd Index: 2.32 2.4-3.2/2.2-3.1 cm/m2 LVIDs: 2.82 2.0-3.6 cm LVPWd: 0.88 0.7-1.1 cm LA Diam: 3.10 2.7-3.8/3.0-4.0 cm LAIDs Index: 1.53 1.5-2.3 cm/m2 LV Mass: 170.65 67-162/88-224 g LV Mass Index: 84.48 43-95/49-115 g/m2 LVOT Diam: 2.30 3.0+(-)1.3 cm Mitral Valve MV Pk E: 0.80 MV PK A: 0.70 MV Decel Time: 204.00 E/A: 1.10 E'Lateral: 9.14 E'Medial: 8.81 E/E' Med: 9.00 E/E' Lat: 8.70 PHT: 60.00 MVA PHT: 3.67 Decel Greer: 3.90 Aortic Valve AoV Pk Sandro: 1.25 AoV Mn Sandro: 0.91 AoV VTI: 0.26 AoV Pk Grad: 6.00 Aov Mn Grad: 4.00 MELISSA Cont.VTI: 3.70 LVOT LVOT Pk Sandro: 1.19 LVOT Mn Sandro: 0.68 LVOT VTI: 0.23 LVOT Pk Grad: 6.00 LVOT Mn Grad: 2.00 LVOT Diam: 2.30 LVOT Area: 4.15 Diastolic Function MV Pk E: 0.80 MV Pk A: 0.70 E/A: 1.10 E'Medial: 8.81 E/E' Med: 9.00 E' Laterial: 9.14 E/E' Lat: 8.70 Right Ventricle TAPSE (mm): 17.40 TVS' Sandro: 17.00 Tricuspid Valve TR Pk Sandro: 1.83 TR Pk Grad: 13.00 RA Press: 3.00 RVSP: 16.00 Great Vessels Aorta Sinus of Valsalva: 3.45 2.0-3.[address] Ridge: 2.51 1.7-3.4 cm Ao Asc: 3.50 2.1-3.4 cm Pulmonary Veins Pulm Vein S/D 1.40 Updated in Other Vendor System with Status of Final Ariel Rader MD electronically signed on 04/10/2025 4:07:56 PM with status of Final
--- OUTSIDE RECORDS SUMMARY | 2025-04-10 18:14 | XMS_ITS | Encounter Summary ---
Author Organization [employer] Address [address] [place] [address] Care Team Providers Care [employer] Executive Director Name Role Phone Jose G Schaefer MD Primary Care Provider Encounter Details Date Type Department Care Team (Late st Contact Info) Description 02/26/2025 Lab Requisition [facility] - Main Lab 299 [facility] [place] [address] Clint Kline MD [address] [place] [address] Elevated prostate specific antigen (PSA) [...] (02/26/2025) Final Diagnosis A. Prostate, Left Mid [place] Biopsy: - Benign prostatic tissue. B. Prostate, Left Lat [place] Biopsy: - Benign prostatic tissue. C. Prostate, Left Mid [place] Biopsy: - Benign prostatic tissue. D. Prostate, Left Lat [place] Biopsy: - Benign prostatic tissue. E. Prostate, Left [place] Biopsy: - Benign prostatic tissue. F. Prostate, Left Lat [place] Biopsy: - Benign prostatic tissue. G. Prostate, Left Anterior Transition Zone at [place] to [place] Biopsy: - Prostatic acinar adenocarcinoma (conventional type), grade group 2 (Nessa score 3+4=7). - Percentage pattern 4: 10%. - Tumor continuously involves 55% of 1 of 1 tissue core. H. Prostate, Right Mid [place] Biopsy: - Benign prostatic tissue. I. Prostate, Right Lat [place] Biopsy: - Benign prostatic tissue. J. Prostate, Right Mid [place] Biopsy: - Benign prostatic tissue. K. Prostate, Right Lat [place] Biopsy: - Benign prostatic tissue. L. Prostate, Right [place] Biopsy: - Benign prostatic tissue. M. Prostate, Right Lat [place] Biopsy: - Benign prostatic tissue. 02/28/2025 4:[address] [facility] Clinical Information Elevated PSA PSA: 3.37 (11/08/24) [id number] 02/28/2025 4:23 PM [facility] Gross Description A. Prostate, Left Mid [place] Biopsy: Received, properly labeled, are two H and E stained slides and two unstained slides. B. Prostate, Left Lat [place] Biopsy: Received, properly labeled, are two H and E stained slides and two unstained slides. C. Prostate, Left Mid [place] Biopsy: Received, properly labeled, are two H and E stained slides and two unstained slides. D. Prostate, Left Lat [place] Biopsy: Received, properly labeled, are two H [...] Left Anterior Transition Zone at [place] to [place] Biopsy: Received, properly labeled, are two H and E stained slides and two unstained slides. H. Prostate, Right Mid [place] Biopsy: Received, properly labeled, are two H and E stained slides and two unstained slides. I. Prostate, Right Lat [place] Biopsy: Received, properly labeled, are two H [...] unstained slides. /al 02/28/2025 4:[address] [facility] Disclaimer Unless otherwise specified, all tissue is 10% NB formalin fixed and paraffin embedded. Technical pathology services provided by [facility] at [address] [place] [address] [address], [place] [address] (CLIA #[id number]/Cassy Tran MD, Coal Miner) 02/28/2025 4:[address] [facility] Tissue Prostate / Unknown 02/26/20252024 [...] PATHOLOGY ORDERABLES Final Result [facility] ([facility]) [facility] [address] [place] [address], documented in this encounter Visit Diagnoses Diagnosis Elevated prostate specific antigen (PSA) documented in this encounter Care Teams [employer] Executive Director Relationship Specialty Start Date End Date Jose G Schaefer MD [address] [place] [address] [address] [place] [phone] PCP - General Internal Medicine 02/26/25 documented as of this encounter
--- OUTSIDE RECORDS SUMMARY | 2025-04-10 18:14 | XMS_ITS | Patient Health Record ---
Author Organization Jose G Schaefer MD Address [address] [place], [place] [id number] Care Team Providers Care Escrow Officer Name Role Phone Jose G Schaefer Primary Care Provider Allergies Allergen (clinical drug ingredient) Drug/Non Drug Allergy documented on EMR Reaction Allergy Type Onset Date Status raw eggs (uncoded) hives Allergy A ctive lobster, shellfish (uncoded) hives Allergy Active Nuts (uncoded) anaphylaxis Allergy Act ana Results Component Value Reference Range Notes PSA,Total (Free>4and<10) Reviewed date:04/18/2024 01:04:10 PM Interpretation: Performing Lab:[facility], [address] [place] [phone] Notes/Report: PSA,Total (Free>4and<10) 2.35 0.00-4.00 ng/mL A [...] ff Reviewed date:07/05/2024 04:21:41 PM Interpretation: Performing Lab:[facility], [address] [place] [phone] Notes/Report: White Blood Count 7.4 4.8-10.8 X10*3/uL [...] NRBC Abs Auto 0.000 0.0-0.012 X10*3/uL Comprehensive Thurman. Panel Fa st Reviewed date:07/05/2024 04:22:48 PM Interpretation: Performing Lab:[facility], [address] [place] [phone] Notes/Report: Sodium 142 135-145 mmol/L Potassium 3.8 [...] Panel Reviewed date:07/05/2024 04:18:22 PM Interpretation: Performing Lab:[address] [phone] Notes/Report: Triglycerides 125 <150 mg/dL Desirable Triglyceride: [...] date:07/22/2024 06:02:50 PM Interpretation:see back 07-22-24 Performing Lab:[facility], [address] [place] [phone] Notes/Report: PSA,Total (Free>4and<10) 3.37 0.00-4.00 ng/mL A [...] t Reviewed date:07/05/2024 04:21:58 PM Interpretation: Performing Lab:[facility], [address] [place] [phone] Notes/Report: Urine, Clean Catch Color Urine Dark Yellow Appearance Urine Cloudy PH 5.5 5.0-9.0 Glucose Urine UA Negative Negative mg/dL Urine Blood Negative Negative Specific [place] - Urine 1.025 1.005-1.025 Urine Protein 30 (1+) Neg-Trace mg/dL Urine Ketones 40 Negative mg/dL Nitrite Urine Negative Negative Leukocyte Esterase Urine Negative Negative RBC Urine 0-2 0-2 /HPF WBC Urine 0-5 0-5 /HPF Squamous Epithelial Cell Urine 0-2 0-2 /HPF Bacteria Urine None Seen None Seen Hyaline Casts Urine 0-2 0-2 /LPF Lipid Panel Reviewed date:10/28/2024 11:05:37 AM Interpretation: Performing Lab:[facility], [address] [place] [phone] Notes/Report: Triglycerides 118 <150 mg/dL Desirable Triglyceride: [...] Reviewed date:11/07/2024 08:04:03 AM Interpretation:JOSR 11/05 Performing Lab:[address] [address] Notes/Report: PSA,Total (Free>4and<10) 3.54 0.00-4.00 ng/mL A [...] Tatum Alinity i Chemiluminescent Microparticle Immunoassay (CMIA) Occult Blood, Stool, Guaiac Reviewed date:07/22/2024 03:47:48 PM Interpretation:Negative Performing Lab: Notes/Report: Negative Occult Blood, Stool, Guaiac Neg Lipid Panel Reviewed date:07/22/2024 05:45:39 PM Interpretation: Performing Lab:[address] [phone] Notes/Report: Triglycerides 118 <150 mg/dL Desirable Triglyceride: [...] low results in patients with liver disease. Pathology Reviewed date:01/28/2025 05:14:48 PM Interpretation: Performing Lab:[facility], [address] [place] [phone] Notes/Report: ------ Name: Kushal Martinez Age/Sex: 59/M : 1965 Unit#: [id number] Attend Dr: Bryce Bower MD Re01/24/25 Status : [facility] Location: [facility] Disch: ------ SPEC : [id number] RECD : 01/24/25 STATUS: BLU LEW NUM: [id number] BAYLEE: 01/24/[address] [facility] [address]: Bryce Bower MD ENTERED: 01/24/25- 34 [...] Received in 3 parts. A. Received in Volusion labeled ?ascending colon polyp? are 3 fragments of caldera-white soft tissue measuring 0.2 -0.5 cm in greatest dimension which are wrapped in lens paper and entirely submitted f or microscopic examination, 3 pieces in cassette A. B. Received in Volusion labeled ?transverse colon polyps? are fragments of pink-white and pink caldera tissue rang ing from 0.3-0.6 cm in greatest dimension, forming an aggregate measuring 1.5 x 1.2 x 0.2 cm which is wrapped in lens paper and entirely submitted for microscopic examinat ion, multiple pieces in cassette B. C. Received in Volusion labeled ?polyps at 20? are 2 fragments of caldera-white soft tissue measuring 0.1 and 0. 2 cm in greatest dimension which are wrapped in lens paper and entirely submitted for micros copic examination, 2 pieces in cassette C. ([facility] [place]) CONTINUED ON NEXT PAGE ------ Name: Kushal Martinez Age/Sex: 59/M : 1965 Unit#: [id number] Attend Dr: Bryce Bower MD Re01/24/25 Status : [facility] Location: [facility] Disch: ------ SPEC : [id number] RECD : 01/24/25 STATUS: BLU LEW NUM: [id number] BAYLEE: 01/24/[address] [facility] [address]: Bryce Bower MD ENTERED: 01/24/25 34 SP TYPE: Surgical OTHR DR: Jose G Schaefer MD ORDERED: HE Stain/9, Gross Micro L4/3 IHC S/NG Disclaimer NOTE: Unless otherwi se stated, all tissue is formalin-fixed and paraffin-embedded. Some or all of the immunohistochemical tests reported herein may have been developed and their performance characteristics determined by [facility]. They have not been cleared or appr kati by the U.S. Food and Drug Administration (FDA). However, the FDA has determined that such clearance or approval is not necessary. This laboratory is certified under the Clinical Laboratory Improvement Amendments of 1988 (CLIA) as qualified to perform high comp lexity clinical laboratory testing. Copies To: Jose G Schaefer MD [facility] [address] [place] [address] [address] [place] [address] Bryce Bower MD [address] [place] [address] ------ Signed (signature on file) Kaleb Stoner MD 01/27/25 1416 ------ END OF REPORT Complete Blood Count no Diff Reviewed date:04/10/2025 12:29:57 PM Interpretation: Performing Lab:[facility], [address] [place] [phone] Notes/Report: White Blood Count 7.5 4.8-10.8 X10*3/uL Red Blood Count 5.73 4.60-5.80 X10*6/uL Hemoglobin 15.5 14.0-18.0 g/dl Hematocrit 48.5 42.0-52.0 % Mean Corpuscular Volume 84.6 80.0-98.0 fL Mean Corpuscular Hemoglobin 27.1 27.0-33.0 pg Mean Corpuscular HGB Conc 32.0 31.0-36.0 g/dl Red Cell Distribution Width 14.2 11.0-16.0 % Platelet Count 212 160-400 X10*3/uL Mean Platelet Volume 10.9 9.4-12.4 fL NRBC Pct Auto 0.0 0.0-0.2 /100WBC NRBC Abs Auto 0.000 0.0-0.012 X10*3/uL Prothrombin Time INR Reviewed date:04/10/2025 12:29:36 PM Interpretation: Performing Lab:[facility], [address] [place] [phone] Notes/Report: Prothrombin Time 11.3 10.9-12.4 SEC INTERNATIONAL NORM RATIO 1.0 0.9-1.1 INTERNATIONAL NORMALIZED RATIO (INR) REFERENCE RANGES Reference Range For patients not on anticoagulant therapy: 0.9 - 1.1 INR ranges for oral anticoagulant therapy: For prevention and treatment of venous thrombosis and pulmonary embolism: 2.0 - 3.0 For acute myocardial infarction with aspirin therapy: 2.0 - 3.0 For acute myocardial infarction without aspirin therapy: 3.0 - 4.0 For patients with mechanical prosthetic heart valves: 2.5 - 3.5 Basic Metabolic Panel Reviewed date:04/10/2025 12:29:28 PM Interpretation: Performing Lab:[facility], [address] [place] [phone] Notes/Report: Sodium 140 135-145 mmol/L Potassium 4.3 3.3-5.1 mmol/L Chloride 103 96-108 mmol/L Carbon Dioxide 27 22-29 mmol/L Anion Gap 14 12-20 Blood Urea Nitrogen 18 9-16 mg/dL Creatinine 1.23 0.5-1.4 mg/dL Estimated Glomerular Filt Rate > 60 Chronic Kidney Disease: Estimated GFR < 60 mL/min/1.73m2 Severe Kidney Disease: Estimated GFR < 15 mL/min/1.73m2 Glucose Random 109 60-115 mg/dL Calcium 9.8 8.4-10.2 mg/dL Reason For Referral Reason PSA Elevation Diagnosis [...] setting him up with an MRI. phone [phone], Megan Constantino 02/04/2025 08:19:16 AM >was told [...] Risk Notes Problem Malignant tumor of prostate (795050497) Prostate cancer (C61) Active confirmed Problem Asthma (583144253) Asthma (J45.909) Active confirmed Problem 111320646 Elevated cholesterol/high density lipoprotein ratio (E78.6) Active confirmed Problem 79379040 Elevated cholesterol (E78.00) Active confirmed Vital Signs Blood pressure diastolic 60 mm Hg 03/28/2025 Height 68 in 03/28/2025 Blood pressure systolic 122 mm Hg 03/28/2025 Weight 206 lbs 03/28/2025 BMI 31.32 kg/m2 03/28/2025 Encounters Encounter Location Date Provider Diagnosis Jose G Schaefer MD [address] [place] [id number] 04/18/2024 Jose G Schaefer Rising PSA level R97.20 Jose G Schaefer MD [address] [place] [id number] 07/05/2024 Jose G Schaefer Blood tests for routine general physical examination Z00.00 Jose G Schaefer MD [address] [place] [id number] 10/28/2024 Jose G Schaefer Elevated cholesterol E78.00 and PSA elevation R97.20 Jose G Schaefer MD [address] [place] [id number] 07/22/2024 Jose G Schaefer Elevated cholesterol E78.00 ; Annual physical exam Z00.00 ; PSA elevation R97.20 ; Colon cancer screening Z12.11 and Depression screening Z13.31 Jose G Schaefer MD [address] [place] [id number] 11/05/2024 Jose G Schaefer Elevated PSA R97.20 Jose G Schaefer MD [address] [place] [id number] 03/25/2025 Jose G Schaefer Asthma J45.909 and Prostate cancer C61 Jose G Schaefer MD [address] [place] [id number] 03/28/2025 Jose G Schaefer Shortness of breath R06.02 and Prostate cancer C61 Jose G Schaefer MD [address] [place] [id number] 03/28/2025 Jose G Schaefer MD [address] [place] [id number] 12/27/2024 Jose G Schaefer MD [address] [place] [id number] 03/11/2025 Jose G Schaefer MD [address] [place] [id number] 04/10/2025 Jose G Schaefer Assessments Encounter Date Diagnosis [...] used his inhaler. / order [place]ed [place] [facility] [place] 10/28/2024 PSA elevation (ICD-10 - R97.20) 07/22/2024 PSA elevation (ICD-10 - R97.20) will continue to monitor, labs pending 03/28/2025 Prostate cancer (ICD-10 - C61) we discussed the outcome of his visit with the urologist and i have suggested [facility] to gain a better understanding of the options 07/22/2024 Colon cancer screening (ICD-10 - Z12.11) guaiac negative 07/22/2024 Depression screening (ICD-10 - Z13.31) negative screen Plan Of Treatment Pending Test Test Name Order Date Electrocardiogram (EKG) 08/23/2019 CA stress test 03/28/2025 Next Appt Details Provider Name:Jose G hilton, 05/02/2025 02:00:00 PM, [address] [place] [address], [address] [place] [address], [phone], Provider Name:Jose G francisr, 07/15/2025 07:15:00 AM, [address] [place] [address], Suite [facility], [place], [place], [phone], Provider Name:Jose G francisr, 07/24/2025 02:30:00 PM, [address] [place] [address], [address] [place] [address], [phone], Provider Name:Jose G hilton, 03/30/2026 07:00:00 AM, [address], [address], [place], [place], [phone], Insurance Providers Payer Name Payer Address Payer Phone Subscriber Number Group Number Insured Name Patient Relationship to Insured Coverage Start Date Coverage End Date [employer] [address] [address] [place] [phone] [id number] Kushal Martinez Self - patient is the insured
--- OUTSIDE RECORDS SUMMARY | 2025-04-10 18:15 | XMS_ITS | Patient Health Record ---
Author Organization [facility] Address [address] [place] [address] Care Team Providers Care Immersion Metal Cleaner Name Role Phone Jose G Schaefer MD Primary Care Provider Bryce Moreau [phone] Allergies Allergen (clinical drug ingredient) Drug/Non Drug Allergy documented on EMR Reaction Allergy Type Onset Date Status nuts,seafood (uncoded) Unknown Allergy Active Results Component Value Reference Range Notes Pathology (Not yet reviewed by provider) Interpretation: Performing Lab:[facility], [address] [place] [phone] Notes/Report: Reason For Referral No Information Medications Medication SIG (Take, Route, Frequency, Duration) Notes Start Date End Date Status Atorvastatin Calcium 20 MG Oral for 90 Days Active Immunizations Vaccine Route Administration Date Status Comme nts Influenza Unknown 04/07/2021 Administered Influenza Unknown 09/25/2024 Refused Problems Problem Type SNOMED Code ICD Code Onset Dates Problem Status W/U Status Risk Notes Problem 138144699 Encounter for screening for malignant neoplasm of colon (Z12.11) Active confirmed Problem 597935686 History of adenomatous polyp of colon (Z86.010) Active confirmed Problem Screening for malignant neoplasm of rectum (432821487) Encounter for screening for malignant neoplasm of rectum (Z12.12) Active confirmed Problem 20417808 Preprocedural examination (Z01.818) Active confirmed Problem 862985134 Family history o f colon cancer (Z80.0) Active confirmed Problem Diverticulosis of colon (908889059) Diverticulosis of colon (K57.30) Active confirmed Problem Serrated polyp of colon (764971078) Serrated polyp of colon (K63.5) Active confirmed Vital Signs Temperature 97.5 degrees Fahrenheit 09/25/2024 Blood pressure diastolic 01 mm Hg 09/25/2024 Height 68.5 in 09/25/2024 Blood pressure systolic 001 mm Hg 09/25/2024 Weight 212.8 lbs 09/25/2024 BMI 31.88 kg/m2 09/25/2024 Procedures Procedure Date Ordered Date Performed Result Body Sit e COLONOSCOPY 09/25/2024 N/A Encounters Encounter Location Date Provider Diagnosis [facility] [place] [facility] [address] [place], [place] [phone] 01/24/2025 Bryce Bower [facility] [address] [place] [address] 09/25/2024 Bryce Bower History of adenomato us [...] again for allowing me to participate in Kuhsal's care. I shall continue to keep you advised of his progress. Plan Of Treatment Pending Test Test Name Order Date COLONOSCOPY 09/25/2024 Pathology 01/24/2025 Future Test Test Name Order Date COLONOSCOPY 10/28/2015 COLONOSCOPY 03/31/2021 Insurance Providers Payer Name Payer Address Payer Phone Subscriber Number Group Number Insured Name Patient Relationship to Insured Coverage Start Date Coverage End Date [facility] [address] [place], [place] [id number] KUSHAL SUAREZ Self - patient is the insured Medical (General) History Medical History History ICD Code Tubular adenoma removed in 1 995- F/U colonoscopies were neg. in 1995, 2004, 07/2010 Denies VT,DM,CVA,Lung disease,renal dise ase Colonoscopy in 01/2016- 1 tubular adenoma and 1 hyperplastic polyp removed High cholesterol Screening colonoscopy in Apr with removal of a small tubular adenoma and an approximately 1 cm sessile serrated polyp from the ascending colon Surgical History Surgery Date(Month/Year)
== END ==
LOC: HO.CARD 13:42
PROVIDERS: PCP Internal Medicine; Visit Provider Internal Medicine Cardiovascular Disease
DX: I20.0 Unstable angina (principal)
CPT/HCPCS: 93306; Q9957

== ENCOUNTER → 2025-04-10 13:45 | Outpatient (BNV) | payer OTHER, SELFPAY | PROVIDERS: PCP Internal Medicine; Visit Provider Internal Medicine Cardiovascular Disease | DX: I20.0 Unstable angina (principal) | CPT/HCPCS: 93306 ==

== ENCOUNTER → 2025-04-15 23:59 | Outpatient (BNV) | payer OTHER, SELFPAY | PROVIDERS: PCP Internal Medicine; Visit Provider Internal Medicine Cardiovascular Disease | DX: I25.118 Atherosclerotic heart disease of native coronary artery with other forms of angina pectoris (principal) | CPT/HCPCS: 93458; 99152 ==

== ENCOUNTER 2025-05-01 14:58 | Outpatient (AMB) | payer OTHER, SELFPAY ==
--- OUTSIDE RECORDS SUMMARY | 2025-01-24 03:30 | XMS_ITS ---
Author Organization [facility] Address [address] [place] [address] Care Team Providers Care Power Shovel Mechanic Name Role Phone Olive ELIZABETH, Jsoe G Primary Care Provider Bryce Moreau [phone] REASON FOR VISIT family hx of colon cancer,hx of adenomatous polyp, screening for malignant neoplasm of the colon, serrated polyp of the colon,preprocedural exam Encounters Encounter Location Date Provider [place] [facility] [place] [address] [place] [phone] 01/24/2025 Bryce Bower Plan Of Treatment No Information Progress Notes * EZEKIEL SUAREZ MDOB:[birth year] (59 yo M)Acc No.[id number]:01/24/2025 COLON WITH MAC Patient: Justa ROCHAEZEKIEL Provider: Yessica Bower MD :1965 A ge:59 Y S ex:Male Date:01/24/2025 Address:[address] [place] [address] [facility] Pcp:Jose G Schaefer MD Subjective: * Chief Complaints: * 1 . Family hx of colon cancer,hx of adenomatous polyp, screening for malignant neoplasm of the colon, serrated polyp of the colon,preprocedural exam. * Medical History: Objective: * Vitals: Assessment: Plan: * Treatment: * * The named appointment provid er may or may not be the originator of this progress note, and it is not deemed complete until electronically signed by the appointment provider. Sign off status: Pending * Provider: Yessica Bower MD Date: 01/24/2025 Generated for Latesha gonzalez/Vikram/Lorene on: 1 06:54 PM EDT
--- OUTSIDE RECORDS SUMMARY | 2025-03-25 11:00 | XMS_ITS ---
Author Organization Jose G Schaefer MD Address [address] [place], [place] [phone] Care Team Providers Care Boiler Tenders Supervisor Name Role Phone Jose G Schaefer [...] Status W/U Status Risk Notes Problem Asthma (297632963) Asthma (J45.909) Active confirmed Problem Malignant tumor of prostate (486430605) Prostate cancer (C61) Active confirmed Vital Signs Blood pressure systolic 172 mm Hg 03/25/20 25 Blood pressure diastolic 84 mm Hg 025 Height 68 in 03/25/2025 Weight 206 lbs 03/25/2025 BMI 31.32 kg/m2 03/25/2025 weight is up 11 pounds since 11-05-24 Encounters Encounter Location Date Provider Diagnosis Jose G Schaefer MD [address] [place] [phone] 03/25/2025 Jose G Schaefer Asthma J45.909 and [...] 3 Days, Reaso n: Provider Name:Jose G hilton, 05/02/2025 02:00:00 PM, [address] [place] [address], [phone], Provider Name:Jose G hilton, 07/15/2025 07:15:00 AM, [address] [place] [address], [phone], Provider Name:Jose G hilton, 07/24/2025 02:30:00 PM, [address] [place] [address], [phone], Provider Name:Jose G hilton, 03/30/2026 07:00:00 AM, [address] [place] [address], [phone], Progress Notes * Kushal MARTINEZDOB:1965 (59 yo M)Acc No.[id number]:03/25/2025 Progress Notes Patient: Justa Kushal ROCHA Provider: Duncan Schaefer MD :1965 A ge:59 Y S ex:Male Date:03/25/2025 Address:[address] [place], [place] [phone] Subjective: * Chief Complaints: * D iscuss [...] slight wheeze. Assessment: * Assessment: 1. A sta - J45.909 (Primary) 2 . P rostate cancer - C61 Plan: * Treatment: * Procedure Codes: * Follow Up: 2 - 3 Days * * Sign off status: Completed true * Provider: Duncan Schaefer MD Date: 0 03/25/2025 Generated for Latesha gonzalez/Vikram/eTransmitting on: 1 06:53 PM EDT History and Physical Notes * [...]
--- OUTSIDE RECORDS SUMMARY | 2025-03-28 10:00 | XMS_ITS ---
Author Organization Jose G Schaefer MD Address [address] [place] [phone] Care Team Providers Care Supervisor [employer] Name Role Phone Jose G Schaefer Primary [...] G Schaefer MD [address] [place] [phone] 03/28/2025 Jose G Schaefer Shortness of breath R06.02 and Prostate cancer C61 Assessments Encounter Date Diagnosis (ICD Code) Assessment Notes Treatment Notes Treatment Clinical Notes Section Notes 03/28/2025 Shortness of breath (ICD-10 - R06.02) seems mostly likely lung since it is there all the time and heard a little wheeze when he used his inhaler. / order faxed to [facility] dept 03/28/2025 Prostate cancer (ICD-10 - C61) we discussed the outcome of his visit with the urologist and i have suggested a vist to the [facility] to gain a better understanding of the options Plan Of Treatment Treatment Notes Assessment Notes Shortness of breath seems mostly likely lung since it is there all the time and heard a little wheeze when he used his inhaler. / order faxed to [facility] dept Prostate cancer we discussed the out come of his visit with the urologist and i have suggested a vist to the [facility] to gain a better understanding of the options Pending Test Test Name Order Date CA stress test 03/28/2025 Next Appt Details Follow Up: 4 Weeks, Reason: Provider Name:Jose G hilton, 05/02/2025 02:00:00 PM, [address] [place] [address], [phone], Provider Name:Jose G hilton, 07/15/2025 07:15:00 AM, [address] [place] [address], [phone], Provider Name:Jose G hilton, 07/24/2025 02:30:00 PM, [address] [place] [address], [phone], Provider Name:Jose G hilton, 03/30/2026 07:00:00 AM, [address] [place] [address], [phone], Progress Notes * Kushal MARTINEZDOB:1965 (59 yo M)Acc No.[id number]:03/28/2025 Progress Notes Patient: Justa Kushal ROCHA Provider: Duncan Schaefer MD :1965 A ge:59 Y S ex:Male Date:03/28/2025 Address:[address] [place], [place] Subjective: * Chief Complaints: * 3 day [...] 03/28/2025 Generated for Nawafi lisa/Vikram/eTransmitting on: 1 06:53 PM EDT History and [...]
--- OUTSIDE RECORDS SUMMARY | 2025-03-28 10:32 | XMS_ITS ---
Author Organization Jose G Schaefer MD Address [address] [place] [address] [place] [phone] Care Team Providers Care Medical Office Specialist Name Role Phone Jose G Schaefer Primary Care Provider [phone] REASON FOR VISIT Urology referral Encounters Encounter Location Date Provider Diagnosis Jose G Schaefer MD [address] [place] [address] [place] [phone] 03/28/2025 Jose G Schaefer Plan Of Treatment Next Appt Details Provider Name:Jose G hilton, 05/02/2025 02:00:00 PM, [address] [place] [address], [address], [phone], Provider Name:Jose G Cooper ier, 07/15/2025 07:15:00 AM, [address] [place] [address], [address] [place] [address], [phone], Provider Name:Jose G Cooper ier, 07/24/2025 02:30:00 PM, [address] [place] [address], [address], [phone], Provider Name:Jose G hilton, 03/30/2026 07:00:00 AM, [address] [place] [address], [address], [phone], Progress Notes * Donn MARTINEZ:1965 (59 yo M)Acc No.[id number]:03/28/2025 Patient: Justa ROCHA Kushal :1965 A ge:59 Y S ex:Male Address:[address] [place] [address], [place] [address] * * Date:
--- OUTSIDE RECORDS SUMMARY | 2025-04-10 04:30 | XMS_ITS ---
Author Organization Jose G Schaefer MD Address [address] [place] [address] [place] [phone] Care Team Providers Care Import/Export Analyst Name Role Phone Jose G Schaefer Primary Care Provider REASON FOR VISIT refusing appt to go over stress test Encounters Encounter Location Date Provider Diagnosis Jose G Schaefer MD [address] [place] [address] [place] [phone] 04/10/2025 Jose G Schaefer Plan Of Treatment Next Appt Details Provider Name:Jose G hilton, 05/02/2025 02:00:00 PM, [address] [place] [address], [address], [phone], Provider Name:Jose G hilton, 07/15/2025 07:15:00 AM, [address] [place] [address], [address], [phone], Provider Name:Jose G hilton, 07/24/2025 02:30:00 PM, [address] [place] [address], [address], [phone], Provider Name:Jose G hilton, 03/30/2026 07:00:00 AM, [address] [place] [address], [address], [phone], Progress Notes * Kushal MARTINEZDOB:1965 (59 yo M)Acc No.[id number]:04/10/2025 Patient: Kushal HUANG :1965 A ge:59 Y S ex:Male Address:[address] [place] [address] * true * Date: Generated for Latesha gonzalez/Vikram/Karthiksmitting on: 06:53 PM EDT
--- OUTSIDE RECORDS SUMMARY | 2025-04-24 11:02 | XMS_ITS ---
Author Organization Jose G Schaefer MD Address 10 [facility] [address] [place] [phone] Care Team Providers Care Leather Shaver Name Role Phone Jose G Schaefer Primary Care Provider REASON FOR VISIT Discharge summary rec'd Encounters Encounter Location Date Provider Diagnosis Jose G Schaefer MD [address] [place] [address] [place] [id number] 04/24/2025 Jose G Schaefer Plan Of Treatment Next Appt Details Provider Name:Jose G hilton, 05/02/2025 02:00:00 PM, [address] [place] [address], [address], [phone], Provider Name:Jose G Cooper ier, 07/15/2025 07:15:00 AM, [address] [place] [address], [address], [phone], Provider Name:Jose G hilton, 07/24/2025 02:30:00 PM, [address] [place] [address], [address], [phone], Provider Name:Jose G hilton, 03/30/2026 07:00:00 AM, [address] [place] [address], [address], [phone], Progress Notes * Kushal MARTINEZDOB:1965 (59 yo M)Acc No.[id number]:04/24/2025 Patient: Kushal HUANG :1965 A ge:59 Y S ex:Male Address:[address] [place] [address], [place] [address] * true * Date: Generated for Latesha gonzalez/Vikram/Karthiksmitting on: 06:54 PM EDT
[2025-05-01 15:00] VITALS: BP 120/72; PULSE 74; BMI 29.1
--- NOTE | 2025-05-01 15:00 | A.OFFVIS_ITS ---
Vital Signs 05/01/25 15:00 Height 5 ft 8.5 in Weight 194 lb 0.108 oz BMI 29.1 BP 120/72 Blood Pressure Location Lt brachial Position Sitting Pulse 74 Intake Visit Reasons: s/p-cath 04/15 Intake Note: Follow-up cardiac cath seeing cardiac surgery tomorrow feeling ok [employer] Required: No Allergies shellfish derived Allergy (Severe, Verified 05/03/21 14:09) Hives tree nut Allergy (Severe, Verified 05/03/21 14:08) Anaphylaxis Medication List - Last Reconciled 05/01/25 by Ariel Rader MD amiodarone 200 mg PO BID aspirin (Ecotrin Low Strength) 81 mg PO DAILY atorvastatin (Lipitor) 80 mg PO DAILY metformin ER mg PO metoprolol succinate ER (Toprol XL) 50 mg PO DAILY HPI Comments Details: Kushal comes for follow-up after recent coronary artery bypass grafting, discharged on April 18 after an urgent three-vessel coronary artery bypass grafting after cardiac catheterization showing severe left main disease including paroxysmal LAD disease and significant OM1 disease. He underwent three-vessel coronary artery bypass grafting including MARTINEZ to LAD, radial graft to the OM and venous graft to the diagonal branch. He developed significant swelling in his left thigh postoperatively appears to be a hematoma, loculated. He has some stiffness in that area. He denies any anginal symptoms but says he feels very tired and feels fatigue. Juan C's started on amiodarone for postoperative atrial fibrillation. He is currently taking all his medication including aspirin and high-intensity statin therapy. He denies any heart failure symptoms. No fever or chills. No oozing from many wounds. [facility] Medical History (Updated 05/01/25 @ 16:39 by Ariel Rader MD) Hyperlipidemia CAD (coronary artery disease) Elevated cholesterol Tubular adenoma Family history of colon cancer Surgical History (Updated 05/01/25 @ 16:39 by Ariel Rader MD) H/O colonoscopy Family History Father No problems noted. Mother No problems noted. Social History Patient Tobacco Use Status: Never used Tobacco Review of Systems Const Denies chills, Denies fatigue, Denies fever(s), Denies frequent falls, Denies weakness, Denies weight gain and Denies weight loss ENT Denies dizziness Card Denies chest pain, Denies leg edema, Denies lightheadedness, Denies palpitations, Denies dyspnea, Denies dyspnea on exertion, Denies orthopnea and Denies other (loss of consciousness) Resp Denies cough, Denies dyspnea and Denies dyspnea on exertion GI Denies hematochezia and Denies change in stool character Musc Denies abnormal gait, Denies muscle weakness, Denies numbness, Denies radiating pain into limb and Denies tingling Neuro Denies abnormal gait, Denies dizziness, Denies frequent falls, Denies numbness, Denies tingling and Denies weakness Endo Denies fatigue and Denies palpitations Physical Exam Vital Signs: Last Vital Signs Pulse 74 05/01/25 15:00 BP 120/72 05/01/25 15:00 BMI result Body Mass Index 29.1 Const General: cooperative, comfortable, alert, awake and tired appearing Nutritional Appearance: overweight Orientation/consciousness: patient oriented x3 Neck Neck: Yes trachea midline, Yes supple and Yes no JVD Chest Chest palpation & inspection: other (Healing sternotomy site) Resp Effort & Inspection: normal respiratory effort Auscultation: diminished lung sounds Cardio Jugular venous distension: no JVD Rate: regular rate Rhythm: regular rhythm Heart sounds: S1 normal heart sound present, S2 normal heart sound present, no click, no gallops, no murmurs and no rubs GI Percussion: Yes normal to percussion Skin General skin exam: ecchymosis Neuro General: patient oriented x3 and no focal motor deficits Extrem General: Yes no clubbing, cyanosis or edema and Yes other (Large ecchymotic area with organized hematoma in the left thigh) Office Procedures EKG Details: EKG shows normal sinus rhythm with short NM otherwise normal EKG 58044-Jrbkehjglojjwprwh, Complete Assessment & Plan Assessment & Plan (1) CAD (coronary artery disease): Comment: Severe left main stenosis with significant paroxysmal LAD and paroxysmal OM1 disease Code(s): I25.10 - Atherosclerotic heart disease of picayune coronary artery without angina pectoris Category: Medical Plan: CAD with crescendo angina with markedly abnormal stress test with severe left main stenosis underwent coronary artery bypass grafting. We discussed about prognosis after coronary artery bypass grafting. He had EKGs postoperatively looks within normal limits. Suggest echocardiogram to assess LV function post coronary artery bypass grafting. Management of this was discussed. Continue low-dose aspirin therapy as well as high-intensity statin therapy. Follow-up lipid panel in 4 weeks time. Continue blood pressure control. Continue diabetes management goal hemoglobin A1c less than 7%. (2) S/P CABG x 3: Comment: MARTINEZ to LAD, radial artery to OM and saphenous in his graft to diagonal branch, April 2025 Code(s): Z95.1 - Presence of aortocoronary bypass graft Category: Surgical Plan: Status post three-vessel coronary artery bypass grafting still recuperating. Discussed that this might take few weeks. Advised to stay off work for the next 4 weeks unless he makes significant improvement. Recommend phase 2 cardiac rehabilitation. He is on amiodarone therapy to prevent atrial fibrillation postoperatively. This is a self-limiting condition. Will suggest a Holter monitor in 4 weeks time. If no recurrent atrial fibrillation amiodarone can be discontinued. Continue to gradually improve and maintain gradual activity levels. Follow up in the clinic in 4 weeks. Thank you for allowing me to partake in his care Orders: Orders CA echo transthoracic complete Today I25.10 - Atherosclerotic heart disease of picayune coronary artery without angina pectoris, Z95.1 - Presence of aortocoronary bypass graft ECG holter monitor 48 hour 3 Weeks I48.91 - Unspecified atrial fibrillation, I97.89 - Other postprocedural complications and disorders of the circulatory system, not elsewhere classified Lipid Panel 4 Weeks I25.10 - Atherosclerotic heart disease of picayune coronary artery without angina pectoris Coding Level of Care Code Est Pt Level 4 (55903) Complex EM visit Add On G2211 Diagnoses CAD (coronary artery disease) I25.10 S/P CABG x 3 Z95.1 CPT Codes EKG - CPT: 67125-[id number], Complete ([id number])
--- OUTSIDE RECORDS SUMMARY | 2025-05-01 18:53 | XMS_ITS | Clinical Summary ---
Author Organization Formerly [facility] Address [address] [place] [phone] Phone Care Team Providers Care Log Cut Off Sawyer Name Role Phone Unavailable Primary Care Provider Unavailabl e Encounters Date Type Department Care Team Description 04/21/2025 Orders Only [facility] [address] [place] [address] Homehealth, Interface ProviderMD from Last 3 Months Social History Tobacco Use Types Packs/Day Years Used Date Smoking Tobacco: Never Assessed Education Answer Date Recorded Are you interested in more education? Not on emerson e 04/21/2025 Are you concerned about learning? Not on file 04/21/2025 No 04/21/2025 No 04/21/2025 Digital Access Answer Date Recorded No 04/21/2025 No 04/21/2025 Reliable internet access at home? Not on file 04/21/2025 Device with a working camera? Not on file Sex and Gender Information Value Date Recorded Sex Assigned at Not on file Legal Sex Male 9:41 PM EDT Gender Identity Not on file Sexual Orientation Not on file Plan of Treatment Not on file Medical Devices Not on file Insurance [employer] HMO POS EPO [facility] POS EPO [facility] EPO [facility] POS EPO [facility] POS EPO [employer] [facility] [place] [id number] [place] [id number] Additional Source Comments The information contained in this document represents components of the legal health record. It is not the complete legal health record.Formerly [facility]
--- OUTSIDE RECORDS SUMMARY | 2025-05-01 18:54 | XMS_ITS | Patient Health Record ---
Author Organization Jose G Schaefer MD Address [address] [place], [place] [id number] Care Team Providers Care [employer] Founder Name Role Phone Jose G Schaefer Primary Care Provider Allergies Allergen (clinical drug ingredient) Drug/Non Drug Allergy documented on EMR Reaction Allergy Type Onset Date Status raw eggs (uncoded) hives Allergy A ctive lobster, shellfish (uncoded) hives Allergy Active Nuts (uncoded) anaphylaxis Allergy Act ana Results Component Value Reference Range Notes Complete Blood Count Auto Di ff Reviewed date:07/05/2024 04:21:41 PM Interpretation: Performing Lab:[facility], [address] [place] [phone] Notes/Report: White Blood Count 7.4 4.8-10.8 X10*3/uL [...] NRBC Abs Auto 0.000 0.0-0.012 X10*3/uL Comprehensive Iliamna. Panel Fa st Reviewed date:07/05/2024 04:22:48 PM Interpretation: Performing Lab:[facility], [address] [place] [phone] Notes/Report: Sodium 142 135-145 mmol/L Potassium 3.8 [...] Panel Reviewed date:07/05/2024 04:18:22 PM Interpretation: Performing Lab:[address] [phone] Notes/Report: Triglycerides 125 <150 mg/dL Desirable Triglyceride: [...] date:07/22/2024 06:02:50 PM Interpretation:see back 07-22-24 Performing Lab:[address] [phone] Notes/Report: PSA,Total (Free>4and<10) 3.37 0.00-4.00 ng/mL A [...] t Reviewed date:07/05/2024 04:21:58 PM Interpretation: Performing Lab:[address] [phone] Notes/Report: Urine, Clean Catch Color Urine Dark Yellow Appearance Urine Cloudy PH 5.5 5.0-9.0 Glucose Urine UA Negative Negative mg/dL Urine Blood Negative Negative Specific [place] - Urine 1.025 1.005-1.025 Urine Protein 30 (1+) Neg-Trace mg/dL Urine Ketones 40 Negative mg/dL Nitrite Urine Negative Negative Leukocyte Esterase Urine Negative Negative RBC Urine 0-2 0-2 /HPF WBC Urine 0-5 0-5 /HPF Squamous Epithelial Cell Urine 0-2 0-2 /HPF Bacteria Urine None Seen None Seen Hyaline Casts Urine 0-2 0-2 /LPF Lipid Panel Reviewed date:10/28/2024 11:05:37 AM Interpretation: Performing Lab:[facility], [address] [place] [phone] Notes/Report: Triglycerides 118 <150 mg/dL Desirable Triglyceride: [...] disease. PSA,Total (Free>4and<10) Reviewed date:11/07/2024 08:04:03 AM Interpretation:GAYLE 11/05 Performing Lab:[facility], [address] [place] [phone] Notes/Report: PSA,Total (Free>4and<10) 3.54 0.00-4.00 ng/mL A [...] Panel Reviewed date:07/22/2024 05:45:39 PM Interpretation: Performing Lab:[facility], [address] [place] [phone] Notes/Report: Triglycerides 118 <150 mg/dL Desirable Triglyceride: [...] Pathology Reviewed date:01/28/2025 05:14:48 PM Interpretation: Performing Lab:[facility], [address] [place] [phone] Notes/Report: ------ Name: Kushal Martinez Age/Sex: 59/M : 1965 Unit#: [id number] Attend Dr: Bryce Bower MD Re01/24/25 Status : [facility] Location: [facility] Disch: ------ SPEC : [id number] RECD : 01/24/25 STATUS: BLU LEW NUM: [id number] BAYLEE: 01/24/25 [facility] DR: Bryce Bower MD ENTERED: 01/24/25- 34 [...] Received in 3 parts. A. Received in forma janay labeled ?ascending colon polyp? are 3 fragments of caldera-white soft tissue measuring 0.2 -0.5 cm in greatest dimension which are wrapped in lens paper and entirely submitted f or microscopic examination, 3 pieces in cassette A. B. Received in forma janay labeled ?transverse colon polyps? are fragments of pink-white and pink caldera tissue rang ing from 0.3-0.6 cm in greatest dimension, forming an aggregate measuring 1.5 x 1.2 x 0.2 cm which is wrapped in lens paper and entirely submitted for microscopic examinat ion, multiple pieces in cassette B. C. Received in forma janay labeled ?polyps at 20? are 2 fragments of caldera-white soft tissue measuring 0.1 and 0. 2 cm in greatest dimension which are wrapped in lens paper and entirely submitted for micros copic examination, 2 pieces in cassette C. ([facility]) CONTINUED ON NEXT PAGE ------ Name: Kushal Martinez Age/Sex: 59/M : 1965 Unit#: [id number] Attend Dr: Bryce Bower MD Re01/24/25 Status : [facility] Location: [facility] Disch: ------ SPEC : [id number] RECD : 01/24/25 STATUS: BLU LEW NUM: [id number] BAYLEE: 01/24/25 [facility] DR: Bryce Bower MD ENTERED: 01/24/25 34 SP TYPE: Surgical OTHR DR: Jose G Schaefer MD ORDERED: HE Stain/9, Gross Micro L4/3 IHC S/NG Disclaimer NOTE: Unless otherwi se stated, all tissue is formalin-fixed and paraffin-embedded. Some or all of the immunohistochemical tests reported herein may have been developed and their performance characteristics determined by [facility]. They have not been cleared or appr kati by the U.S. Food and Drug Administration (FDA). However, the FDA has determined that such clearance or approval is not necessary. This laboratory is certified under the Clinical Laboratory Improvement Amendments of 1988 (CLIA) as qualified to perform high comp lexity clinical laboratory testing. Copies To: Jose G Schaefer MD [facility] [address] [place] [address] [place] [address] Bryce Bower MD [facility] [address] [place] [address] ------ Signed (signature on file) Kaleb Stoner MD 01/27/25 1416 ------ END OF REPORT Complete Blood Count no Diff Reviewed date:04/10/2025 12:29:57 PM Interpretation: Performing Lab:[facility], [address] [place] [phone] Notes/Report: White Blood Count 7.5 4.8-10.8 X10*3/uL [...] INR Reviewed date:04/10/2025 12:29:36 PM Interpretation: Performing Lab:[facility], [address] [place] [phone] Notes/Report: Prothrombin Time 11.3 10.9-12.4 SEC INTERNATIONAL [...] Panel Reviewed date:04/10/2025 12:29:28 PM Interpretation: Performing Lab:[facility], [address] [place] [phone] Notes/Report: Sodium 140 135-145 mmol/L Potassium 4.3 [...] setting him up with an MRI. phone [phone], Megan Constantino 02/04/2025 08:19:16 AM >was told [...] Risk Notes Problem Malignant tumor of prostate (738944694) Prostate cancer (C61) Active confirmed Problem Asthma (928333863) Asthma (J45.909) Active confirmed Problem 800269766 Elevated cholesterol/high density lipoprotein ratio (E78.6) Active confirmed Problem 02679574 Elevated cholesterol (E78.00) Active confirmed Vital Signs Blood pressure diastolic 60 mm Hg 03/28/2025 Height 68 in 03/28/2025 Blood pressure systolic 122 mm Hg 03/28/2025 Weight 206 lbs 03/28/2025 BMI 31.32 kg/m2 03/28/2025 Encounters Encounter Location Date Provider Diagnosis Jose G Schaefer MD [address] [place] [id number] 07/05/2024 Jose G Schaefer Blood tests for routine general physical examination Z00.00 Jose G Schaefer MD [address] [place] [id number] 10/28/2024 Jose G Schaefer Elevated cholesterol E78.00 and PSA elevation R97.20 Jose G Schaefer MD [address] [place] [id number] 07/22/2024 Jose G Schaefer Elevated cholesterol E78.00 ; Annual physical exam Z00.00 ; PSA elevation R97.20 ; Colon cancer screening Z12.11 and Depression screening Z13.31 Jose G Schaefer MD [address] [place] [id number] 11/05/2024 Jose G Schaefer Elevated PSA R97.20 Jose G Schaefer MD [address] [place] [id number] 03/25/2025 Jose G Schaefer Asthma J45.909 and Prostate cancer C61 Jose G Schaefer MD [address] [place] [id number] 03/28/2025 Jose G Schaefer Shortness of breath R06.02 and Prostate cancer C61 Jose G Schaefer MD [address] [place] [id number] 03/28/2025 Jose G Schaefer MD [address] [place] [id number] 12/27/2024 Jose G Schaefer MD [address] [place] [address] [id number] 03/11/2025 Jose G Schaefer MD [address] [place] [id number] 04/10/2025 Jose G Schaefer MD [address] [place] [address] [id number] 04/24/2025 Jose G Schaefer Assessments Encounter Date Diagnosis [...] used his inhaler. / order faxed to [facility] CS dept 10/28/2024 PSA elevation (ICD-10 - R97.20) 07/22/2024 PSA elevation (ICD-10 - R97.20) will continue to monitor, labs pending 03/28/2025 Prostate cancer (ICD-10 - C61) we discussed the outcome of his visit with the urologist and i have suggested a vist to the [facility] to gain a better understanding of the options 07/22/2024 Colon cancer screening (ICD-10 - Z12.11) guaiac negative 07/22/2024 Depression screening (ICD-10 - Z13.31) negative screen Plan Of Treatment Pending Test Test Name Order Date Electrocardiogram (EKG) 08/23/2019 CA stress test 03/28/2025 Next Appt Details Provider Name:Jose G Cooper ier, 05/02/2025 02:00:00 PM, [address] [place] [address], [address], [phone], Provider Name:Jose G Cooper ier, 07/15/2025 07:15:00 AM, [address] [place] [address], [address], [phone], Provider Name:Jose G Cooper ier, 07/24/2025 02:30:00 PM, [address] [place] [address], [address], [phone], Provider Name:Jose G Cooper ier, 03/30/2026 07:00:00 AM, [address] [place] [address], [address], [phone], Insurance Providers Payer Name Payer Address Payer Phone Subscriber Number Group Number Insured Name Patient Relationship to Insured Coverage Start Date Coverage End Date [employer] [address] [address] Margi bojorquez, [place] [phone] [id number] Kushal Martinez Self - patient is the insured
--- OUTSIDE RECORDS SUMMARY | 2025-05-01 18:55 | XMS_ITS | Patient Health Record ---
Author Organization [facility] Address [address] [place] [address] Care Team Providers Care Survey Director Name Role Phone Jose G Schaefer MD Primary Care Provider Bryce Moreau [phone] Allergies Allergen (clinical drug ingredient) Drug/Non Drug Allergy documented on EMR Reaction Allergy Type Onset Date Status nuts,seafood (uncoded) Unknown Allergy Active Results Component Value Reference Range Notes Pathology (Not yet reviewed by provider) Interpretation: Performing Lab:[facility], [address] [place] [phone] Notes/Report: Reason For Referral No Information Medications Medication SIG (Take, Route, Frequency, Duration) Notes Start Date End Date Status Atorvastatin Calcium 20 MG Oral; Duration: 90 Days Active Immunizations Vaccine Route Administration Date Status Comme nts Influenza Unknown 04/07/2021 Administered Influenza Unknown 09/25/2024 Refused Problems Problem Type SNOMED Code ICD Code Onset Dates Problem Status W/U Status Risk Notes Problem Screening for malignant neoplasm of colon (852609089) Encounter for screening for malignant neoplasm of colon (Z12.11) Active confirmed Problem History of adenomatous polyp of colon (669532887) History of adenomatous polyp of colon (Z86.010) Active confirmed Problem Screening for malignant neoplasm of rectum (536260592) Encounter for screening for malignant neoplasm of rectum (Z12.12) Active confirmed Problem Preprocedural examination (405201146505031) Preprocedural examination (Z01.818) Active confirmed Problem Family History of Cancer of Colon (Situation) (084860569) Family history of colon cancer (Z80.0) Active confirmed Problem Diverticulosis of colon (392547904) Diverticulosis of colon (K57.30) Active confirmed Problem Serrated polyp of colon (729131204) Serrated polyp of colon (K63.5) Active confirmed Vital Signs Temperature 97.5 degrees Fahrenheit 09/25/2024 Blood pressure diastolic 01 mm Hg 09/25/2024 Height 68.5 in 09/25/2024 Blood pressure systolic 001 mm Hg 09/25/2024 Weight 212.8 lbs 09/25/2024 BMI 31.88 kg/m2 09/25/2024 Procedures Procedure Date Ordered Date Performed Result Body Sit e COLONOSCOPY 09/25/2024 N/A Encounters Encounter Location Date Provider Diagnosis [facility] [address]patient [address] [place], [place] [phone] 01/24/2025 Bryce Bower [facility] [address] [place] [address] 09/25/2024 Bryce Bower History of adenomato us [...] Insured Coverage Start Date Coverage End Date [facility] [address] [place], [place] [id number] KUSHAL SUAREZ Self - patient is the insured Medical (General) History Medical History History ICD Code Tubular adenoma removed in 1 995- F/U colonoscopies were neg. in 1995, 2004, 07/2010 Denies DC,DM,CVA,Lung disease,renal dise ase Colonoscopy in 01/2016- 1 tubular adenoma and 1 hyperplastic polyp removed High cholesterol Screening colonoscopy in Apr with removal of a small tubular adenoma and an approximately 1 cm sessile serrated polyp from the ascending colon Surgical History Surgery Date(Month/Year)
--- OUTSIDE RECORDS SUMMARY | 2025-05-01 18:55 | XMS_ITS | Encounter Summary ---
Author Organization [employer] Address [address] [place] [address] Care Team Providers Care Waste Water Treatment Plant Operator Name Role Phone Jose G Schaefer MD Primary Care Provider Encounter Details Date Type Department Care Team (Late st Contact Info) Description 02/26/2025 Lab Requisition [facility] - Main Lab 299 [facility] [place] [address] Clint Kline MD [address] [place] [address] Elevated prostate specific antigen (PSA) [...] (02/26/2025) Final Diagnosis A. Prostate, Left Mid [place] Biopsy: - Benign prostatic tissue. B. Prostate, Left Lat [place] Biopsy: - Benign prostatic tissue. C. Prostate, Left Mid [place] Biopsy: - Benign prostatic tissue. D. Prostate, Left Lat [place] Biopsy: - Benign prostatic tissue. E. Prostate, Left Mid [place] Biopsy: - Benign prostatic tissue. F. Prostate, Left Lat [place] Biopsy: - Benign prostatic tissue. G. Prostate, Left Anterior Transition Zone at [place] to [place] Biopsy: - Prostatic acinar adenocarcinoma (conventional type), grade group 2 (Nessa score 3+4=7). - Percentage pattern 4: 10%. - Tumor continuously involves 55% of 1 of 1 tissue core. H. Prostate, Right Mid [place] Biopsy: - Benign prostatic tissue. I. Prostate, Right Lat [place] Biopsy: - Benign prostatic tissue. J. Prostate, Right Mid [place] Biopsy: - Benign prostatic tissue. K. Prostate, Right Lat [place] Biopsy: - Benign prostatic tissue. L. Prostate, Right Mid [place] Biopsy: - Benign prostatic tissue. M. Prostate, Right Lat [place] Biopsy: - Benign prostatic tissue. 02/28/2025 4:23 PM EDT [facility] Clinical Information Elevated PSA PSA: 3.37 (11/08/24) [id number] 02/28/2025 4:23 PM [facility] Gross Description A. Prostate, Left Mid [place] Biopsy: Received, properly labeled, are two H and E stained slides and two unstained slides. B. Prostate, Left Lat [place] Biopsy: Received, properly labeled, are two H and E stained slides and two unstained slides. C. Prostate, Left Mid [place] Biopsy: Received, properly labeled, are two H and E stained slides and two unstained slides. D. Prostate, Left Lat [place] Biopsy: Received, properly labeled, are two H [...] Left Anterior Transition Zone at [place] to [place] Biopsy: Received, properly labeled, are two H and E stained slides and two unstained slides. H. Prostate, Right Mid [place] Biopsy: Received, properly labeled, are two H and E stained slides and two unstained slides. I. Prostate, Right Lat [place] Biopsy: Received, properly labeled, are two H [...] unstained slides. /al 02/28/2025 4:23 PM EDT [facility] Disclaimer Unless otherwise specified, all tissue is 10% NB formalin fixed and paraffin embedded. Technical pathology services provided by [facility] at [address] [place] [address] [address], [place] [address] (CLIA #[id number]/Cassy Tran MD, Sheet Tailer) 02/28/2025 4:23 PM EDT [facility] Tissue Prostate / Unknown 02/26/20252024 [...] PATHOLOGY ORDERABLES Final Result [facility] [address] [place] [address], documented in this encounter Visit Diagnoses Diagnosis Elevated prostate specific antigen (PSA) documented in this encounter Care Teams Waste Water Treatment Plant Operator Relationship Specialty Start Date End Date Jose G Schaefer MD [address] [place] [address] [address] [place] [address] PCP - General Internal Medicine 02/26/25 documented as of this encounter
--- OUTSIDE RECORDS SUMMARY | 2025-05-01 18:55 | XMS_ITS | Clinical Summary ---
Author Organization 299 [facility] Address [address] [place] [phone] Phone Care Team Providers Care Orthopedic Physical Therapist Name Role Phone Jose G Schaefer MD Primary Care Provider [phone] Encounters Date Type Department Care Team Description 02/26/2025 Lab Requisition [facility] - Main Lab 299 [facility] [place] [address] Clint Kline MD Elevated prostate [...] Health Maintenance Due Date Last Done Comments Colorectal Cancer Screening: Colonoscopy 1965 DTaP,Tdap,and Td Vaccines (1 - Tdap) 1984 Hepatitis B Vaccines (1 of 3 - 19+ 3-dose series) 1984 Pneumococcal Vaccine: 50+ Ye ars (1 of 1 - PCV) 2015 Zoster Vaccines (1 of 2) 2015 Depression Screening 07/17/2024 Cholesterol Screening (Lipid Panel) 02/27/2025 HIV Screening 02/27/2025 Hepatitis C Screening [...] (02/26/2025) Final Diagnosis A. Prostate, Left Mid [place] Biopsy: - Benign prostatic tissue. B. Prostate, Left Lat [place] Biopsy: - Benign prostatic tissue. C. Prostate, Left Mid [place] Biopsy: - Benign prostatic tissue. D. Prostate, Left Lat [place] Biopsy: - Benign prostatic tissue. E. Prostate, Left Mid [place] Biopsy: - Benign prostatic tissue. F. Prostate, Left Lat [place] Biopsy: - Benign prostatic tissue. G. Prostate, Left Anterior Transition Zone at [place] to [place] Biopsy: - Prostatic acinar adenocarcinoma (conventional type), grade group 2 (Nessa score 3+4=7). - Percentage pattern 4: 10%. - Tumor continuously involves 55% of 1 of 1 tissue core. H. Prostate, Right Mid [place] Biopsy: - Benign prostatic tissue. I. Prostate, Right Lat [place] Biopsy: - Benign prostatic tissue. J. Prostate, Right Mid [place] Biopsy: - Benign prostatic tissue. K. Prostate, Right Lat [place] Biopsy: - Benign prostatic tissue. L. Prostate, Right Mid [place] Biopsy: - Benign prostatic tissue. M. Prostate, Right Lat [place] Biopsy: - Benign prostatic tissue. 02/28/2025 4:23 PM EDT [facility] Clinical Information Elevated PSA PSA: 3.37 (11/08/24) [id number] 02/28/2025 4:[address] [facility] Gross Description A. Prostate, Left Mid [place] Biopsy: Received, properly labeled, are two H and E stained slides and two unstained slides. B. Prostate, Left Lat [place] Biopsy: Received, properly labeled, are two H and E stained slides and two unstained slides. C. Prostate, Left Mid [place] Biopsy: Received, properly labeled, are two H and E stained slides and two unstained slides. D. Prostate, Left Lat [place] Biopsy: Received, properly labeled, are two H [...] Left Anterior Transition Zone at [place] to [place] Biopsy: Received, properly labeled, are two H and E stained slides and two unstained slides. H. Prostate, Right Mid [place] Biopsy: Received, properly labeled, are two H and E stained slides and two unstained slides. I. Prostate, Right Lat [place] Biopsy: Received, properly labeled, are two H [...] unstained slides. /al 02/28/2025 4:[address] [facility] Disclaimer Unless otherwise specified, all tissue is 10% NB formalin fixed and paraffin embedded. Technical pathology services provided by [facility] at [address], [place] [address] (CLIA #[id number]/Cassy Tran MD, Material Hauler) 02/28/2025 4:23 PM [facility] Tissue Prostate / Unknown [...] Kline MD LAB PATHOLOGY ORDERABLES Final Result [facility] ([facility] [address] [place] [address], from Last 3 Months Insurance [employer] Care Teams Orthopedic Physical Therapist Relationship Specialty Start Date End Date Jose G Schaefer MD [address] [facility] [address] [place] [id number] PCP - General Internal Medicine 02/26/25
== END 2025-05-01 15:38 | disposition home or self-care (01) ==
LOC: HO.HCS 14:59
PROVIDERS: PCP Internal Medicine; Visit Provider Internal Medicine Cardiovascular Disease
DX: I25.10 Atherosclerotic heart disease of native coronary artery without angina pectoris (principal); Z95.1 Presence of aortocoronary bypass graft
CPT/HCPCS: 93010; 99214; G2211

== ENCOUNTER → 2025-05-01 14:58 | Outpatient (BNVA) | payer OTHER, SELFPAY | PROVIDERS: PCP Internal Medicine; Visit Provider Internal Medicine Cardiovascular Disease | DX: I25.10 Atherosclerotic heart disease of native coronary artery without angina pectoris (principal); I10 Essential (primary) hypertension; Z95.1 Presence of aortocoronary bypass graft | CPT/HCPCS: 93005 ==

== ENCOUNTER 2025-05-02 08:28 | Outpatient (REF) | payer OTHER, SELFPAY ==
--- OUTSIDE RECORDS SUMMARY | 2024-10-28 03:00 | XMS_ITS ---
Author Organization Jose G Schaefer MD Address [address] [place], [place] [phone] Care Team Providers Care Body Designer Name Role Phone Jose G Schaefer Primary Care Provider Results Component Value Reference Range Notes Lipid Panel Reviewed date:10/28/2024 11:05:37 AM Interpretation: Performing Lab:[facility], [address] [place] [phone] Notes/Report: Triglycerides 118 <150 mg/dL Desirable Triglyceride: [...] Reviewed date:11/07/2024 08:04:03 AM Interpretation:JOSR 11/05 Performing Lab:[facility], [address] [facility], [place] [address] Notes/Report: PSA,Total (Free>4and<10) 3.54 0.00-4.00 ng/mL A [...] Date Provider Diagnosis Jose G Schaefer MD [address] [place] [phone] 10/28/2024 Jose G Schaefer Elevated cholesterol E78.00 and PSA elevation R97.20 Assessments Encounter Date Diagnosis (ICD Code) Assessment Notes Treatment Notes Treatment Clinical Notes Section Notes 10/28/2024 Elevated cholesterol (ICD-10 - E78.00) 10/28/2024 PSA elevation (ICD-10 - R97.20) Plan Of Treatment Next Appt Details Provider Name:Jose G hilton, 05/02/2025 02:00:00 PM, [address] [place] [address], [phone], Provider Name:Jose G hilton, 07/15/2025 07:15:00 AM, [address] [place] [address], [phone], Provider Name:Jose G hilton, 07/24/2025 02:30:00 PM, [address] [place] [address], [phone], Provider Name:Jose G hilton, 03/30/2026 07:00:00 AM, [address] [place] [address], [phone], Progress Notes * Kushal MARTINEZDOB:1965 (59 yo M)Acc No.[id number]:10/28/2024 Progress Note Patient: Kushal HUANG Provider: Duncan Schaefer MD :1965 A ge:59 Y S ex:Male Date:10/28/2024 Address:[address] [place] [address] Subjective: * Chief Complaints: * 1 . [...] MD Date: 0 10/28/2024 Generated for Latesha gonzalez/Vikram/Debbieitting on: 1 08:50 AM EDT
--- OUTSIDE RECORDS SUMMARY | 2024-11-05 04:30 | XMS_ITS ---
Author Organization Jose G Schaefer MD Address [address] [place], [place] [id number] Care Team Providers Care Spout Positioner Name Role Phone Jose G Schaefer Primary [...] VISIT 3 MO F/U, CBACK PSA, Video [phone] Medications Medication SIG (Take, Route, Frequency, Duration) Notes Start Date End Date Status Atorvastatin Calcium 20 MG TAKE 1 TABLET BY MOUTH EVERY DAY for 90 Active Vital Signs Height 68 in 11/05/2024 Weight 195 lbs 11/05/2024 BMI 29.65 kg/m2 11/05/2024 weight is 195 at home BP not taken Encounters Encounter Location Date Provider Diagnosis Jose G Schaefer MD [address] [place], [place] [phone] 11/05/2024 Jose G Schaefer Elevated PSA R97.20 [...] Appt Details Provider Name:Jose G Cooper ier, 05/02/2025 02:00:00 PM, [address] [place] [address], [address] [place] [address], [phone], Provider Name:Jose G Cooper ier, 07/15/2025 07:15:00 AM, [address] [place] [address], [address] [place] [address], [phone], Provider Name:Jose G Cooper ier, 07/24/2025 02:30:00 PM, [address] [place] [address], Suite [facility], [place], [place], [phone], Provider Name:Jose G Cooper ier, 03/30/2026 07:00:00 AM, [address] [place] [address], [address] [place] [address], [phone], Progress Notes * Kushal MARTINEZDOB:1965 (59 yo M)Acc No.[id number]:11/05/2024 Patient: Kushal HUANG Provider: Duncan Schaefer MD :1965 A ge:59 Y S ex:Male Date:11/05/2024 Address:[address] [place], [place] [phone] Subjective: * Chief Complaints: * 3 MO F/PEPEACK PSAVideo [phone] * HPI: S ymptom(s): Telehealth L ocation of provider rendering services: [address] [facility], [address], L ocation of patient: a t address listed in demographics for today's visit, P atient identification confirmed using: NADER Olson ame, T elehealth method: T elephone only. Patient not visible to care provider., C onsent: P atient verbally consented to treatment, Patient verbally consented to billing insurance company, Patient informed of any privacy concerns related to method of visit, T otahasmukh time spend talking with patient (minutes) 1 [...] MD Date: 0 11/05/2024 Generated for Latesha gonzalez/Vikram/eTransmitting on: 1 08:48 AM EDT History and Physical Notes * HPI (History of Present Illness) Category Sub-Category Detail Notes Category Not es Symptom(s) Telehealth Location of prov ider rendering services:: [address], [address] patient is a 59 yo [...]
--- OUTSIDE RECORDS SUMMARY | 2024-12-27 04:48 | XMS_ITS ---
Author Organization Jose G Schaefer MD Address [address] [place] [address] [place] [phone] Care Team Providers Care Epitaxial Reactor Technician Name Role Phone Jose G Schaefer Primary Care Provider [phone] REASON FOR VISIT appt with Urology Encounters Encounter Location Date Provider Diagnosis Jose G Schaefer MD [address] [place] [address] [place] [phone] 12/27/2024 Jose G Schaefer Plan Of Treatment Next Appt Details Provider Name:Jose G hilton, 05/02/2025 02:00:00 PM, [address] [place] [address], [address], [phone], Provider Name:Jose G Cooper ier, 07/15/2025 07:15:00 AM, [address] [place] [address], [address] [place] [address], [phone], Provider Name:Jose G hilton, 07/24/2025 02:30:00 PM, [address] [place] [address], [address], [phone], Provider Name:Jose G hilton, 03/30/2026 07:00:00 AM, [address] [place] [address], [address], [phone], Progress Notes * Kushal MARTINEZDOB:1965 (59 yo M)Acc No.[id number]:12/27/2024 Patient: Kushal HUANG :1965 A ge:59 Y S ex:Male Address:[address] [place] [address], [place] [address] * true * Date: Generated for Latesha gonzalez/Vikram/Karthiksmitting on: 08:49 AM EDT
--- OUTSIDE RECORDS SUMMARY | 2025-01-24 03:30 | XMS_ITS ---
Author Organization [facility] Address [address] [place] [address] Care Team Providers Care Carton Maker Name Role Phone Olive ELIZABETH, Jose G Primary Care Provider Bryce Moreau [phone] REASON FOR VISIT family hx of colon cancer,hx of adenomatous polyp, screening for malignant neoplasm of the colon, serrated polyp of the colon,preprocedural exam Encounters Encounter Location Date Provider Diagnosis [facility] [place] [address] [place] [phone] 01/24/2025 Bryce Bower Plan Of Treatment No Information Progress Notes * EZEKIEL SURAEZ MDOB:[birth year] (59 yo M)Acc No.[id number]:01/24/2025 COLON WITH MAC Patient: Justa ROCHAEZEKIEL Provider: Yessica Bower MD :1965 A ge:59 Y S ex:Male Date:01/24/2025 Address:[address] [place], [place] [address] Pcp:Jose G Schaefer MD Subjective: * Chief [...] MD Date: 0 01/24/2025 Generated for Latesha gonzalez/Vikram/Lorene on: 1 08:49 AM EDT
--- OUTSIDE RECORDS SUMMARY | 2025-03-11 11:13 | XMS_ITS ---
Author Organization Jose G Schaefer MD Address [address] [place] [address] [place] [phone] Care Team Providers Care Sail Lay Out Worker Name Role Phone Jose G Schaefer Primary Care Provider REASON FOR VISIT refill Encounters Encounter Location Date Provider Diagnosis Jose G Schaefer MD [address] [place] [address] [place] [phone] 03/11/2025 Jose G Schaefer Plan Of Treatment Next Appt Details Provider Name:Jose G Cooper ier, 05/02/2025 02:00:00 PM, [address] [place] [address], [address], [phone], Provider Name:Jose G Cooper ier, 07/15/2025 07:15:00 AM, [address] [place] [address], [address] [place] [address], [phone], Provider Name:Jose G Cooper ier, 07/24/2025 02:30:00 PM, [address] [place] [address], [address], [phone], Provider Name:Jose G Cooper ier, 03/30/2026 07:00:00 AM, [address] [place] [address], [address], [phone], Progress Notes * Donn MARTINEZ:1965 (59 yo M)Acc No.[id number]:03/11/2025 Patient: Kushal HUANG :1965 A ge:59 Y S ex:Male Address:[address] [place] [address], [facility]27 * true * Date: Generated for Latesha gonzalez/Vikram/Noelransmitting on: 08:48 AM EDT
--- OUTSIDE RECORDS SUMMARY | 2025-03-25 11:00 | XMS_ITS ---
Author Organization Jose G Schaefer MD Address [address] [place], [place] [phone] Care Team Providers Care Box Car Washer Name Role Phone Jose G Schaefer Primary [...] Status W/U Status Risk Notes Problem Asthma (007961184) Asthma (J45.909) Active confirmed Problem Malignant tumor of prostate (048231638) Prostate cancer (C61) Active confirmed Vital Signs Blood pressure systolic 172 mm Hg 03/25/20 25 Blood pressure diastolic 84 mm Hg 025 Height 68 in 03/25/2025 Weight 206 lbs 03/25/2025 BMI 31.32 kg/m2 03/25/2025 weight is up 11 pounds since 11-05-24 Encounters Encounter Location Date Provider Diagnosis Jose G Schaefer MD [address] [place] [phone] 03/25/2025 Jose G Schaefer Asthma J45.909 and [...] Provider Name:Jose G hilton, 05/02/2025 02:00:00 PM, [address] [place] [address], [phone], Provider Name:Jose G hilton, 07/15/2025 07:15:00 AM, [address] [place] [address], [phone], Provider Name:Jose G hilton, 07/24/2025 02:30:00 PM, [address] [place] [address], [phone], Provider Name:Jose G hilton, 03/30/2026 07:00:00 AM, [address] [place] [address], [phone], Progress Notes * Kushal MARTINEZDOB:1965 (59 yo M)Acc No.[id number]:03/25/2025 Progress Notes Patient: Justa Kushal ROCHA Provider: Duncan Schaefer MD :1965 A ge:59 Y S ex:Male Date:03/25/2025 Address:[address] [place], [place] [phone] Subjective: * Chief Complaints: * D iscuss [...] 03/25/2025 Generated for Latesha gonzalez/Vikram/eTransmitting on: 1 08:48 [...]
--- OUTSIDE RECORDS SUMMARY | 2025-03-28 10:00 | XMS_ITS ---
Author Organization Jose G Schaefer MD Address [address] [place] [phone] Care Team Providers Care Salesforce Specialist Name Role Phone Jose G Schaefer [...] G Schaefer MD [address] [place] [phone] 03/28/2025 Jose G Schaefer Shortness of breath R06.02 and Prostate cancer C61 Assessments Encounter Date Diagnosis (ICD Code) Assessment Notes Treatment Notes Treatment Clinical Notes Section Notes 03/28/2025 Shortness of breath (ICD-10 - R06.02) seems mostly likely lung since it is there all the time and heard a little wheeze when he used his inhaler. / order faxed to [facility] dept 03/28/2025 Prostate cancer (ICD-10 - C61) we discussed the outcome of his visit with the urologist and i have suggested a vist to the [facility] to gain a better understanding of the options Plan Of Treatment Treatment Notes Assessment Notes Shortness of breath seems mostly likely lung since it is there all the time and heard a little wheeze when he used his inhaler. / order faxed to [facility] dept Prostate cancer we discussed the out come of his visit with the urologist and i have suggested a vist to the [facility] to gain a better understanding of the options Pending Test Test Name Order Date CA stress test 03/28/2025 Next Appt Details Follow Up: 4 Weeks, Reason: Provider Name:Jose G hilton, 05/02/2025 02:00:00 PM, [address] [place] [address], [phone], Provider Name:Jose G hilton, 07/15/2025 07:15:00 AM, [address] [place] [address], [phone], Provider Name:Jose G hilton, 07/24/2025 02:30:00 PM, [address] [place] [address], [phone], Provider Name:Jose G hilton, 03/30/2026 07:00:00 AM, [address] [place] [address], [phone], Progress Notes * Kushal MARTINEZDOB:1965 (59 yo M)Acc No.[id number]:03/28/2025 Progress Notes Patient: Justa Kushal ROCHA Provider: Duncan Schaefer MD :1965 A ge:59 Y S ex:Male Date:03/28/2025 Address:[address] [place], [id number] Subjective: * Chief Complaints: * 3 day [...] i have suggested a vist to the [facility] to gain a better understanding of the options * Procedure Codes: * Follow Up: 4 Weeks * * Sign off status: Completed true * Provider: Duncan Schaefer MD Date: 0 03/28/2025 Generated for Nawafi lisa/Vikram/eTransmitting on: 1 08:48 AM EDT History and [...]
--- OUTSIDE RECORDS SUMMARY | 2025-03-28 10:32 | XMS_ITS ---
Author Organization Jose G Schaefer MD Address [address] [place] [address] [place] [phone] Care Team Providers Care Clinical Nursing Instructor Name Role Phone Jose G Schaefer Primary Care Provider REASON FOR VISIT Urology referral Encounters Encounter Location Date Provider Diagnosis Jose G Schaefer MD [address] [place] [address] [place] [phone] 03/28/2025 Jose G Schaefer Plan Of Treatment Next Appt Details Provider Name:Jose G hilton, 05/02/2025 02:00:00 PM, [address] [place] [address], [address], [phone], Provider Name:Jose G Cooper ier, 07/15/2025 07:15:00 AM, [address] [place] [address], [address] [place] [address], [phone], Provider Name:Jose G Cooper ier, 07/24/2025 02:30:00 PM, [address] [place] [address], [address], [phone], Provider Name:Jose G hilton, 03/30/2026 07:00:00 AM, [address] [place] [address], [address], [phone], Progress Notes * Donn MARTINEZ:1965 (59 yo M)Acc No.[id number]:03/28/2025 Patient: Justa ROCHA Kushal :1965 A ge:59 Y S ex:Male Address:[address] [place] [address], [place] [address] * * Date:
--- OUTSIDE RECORDS SUMMARY | 2025-04-10 04:30 | XMS_ITS ---
Author Organization Jose G Schaefer MD Address [address] [place] [address] [place] [phone] Care Team Providers Care Car Builder Name Role Phone Jose G Schaefer Primary Care Provider REASON FOR VISIT refusing appt to go over stress test Encounters Encounter Location Date Provider Diagnosis Jose G Schaefer MD [address] [place] [address] [place] [phone] 04/10/2025 Jose G Schaefer Plan Of Treatment Next Appt Details Provider Name:Jose G hilton, 05/02/2025 02:00:00 PM, [address] [place] [address], [address], [phone], Provider Name:Jose G hilton, 07/15/2025 07:15:00 AM, [address] [place] [address], [address], [phone], Provider Name:Jose G hilton, 07/24/2025 02:30:00 PM, [address] [place] [address], [address], [phone], Provider Name:Jose G hilton, 03/30/2026 07:00:00 AM, [address] [place] [address], [address], [phone], Progress Notes * Kushal MARTINEZDOB:1965 (59 yo M)Acc No.[id number]:04/10/2025 Patient: Kushal HUANG :1965 A ge:59 Y S ex:Male Address:[address] [place] [address] * true * Date: Generated for Latesha gonzalez/Vikram/Karthiksmitting on: 08:48 AM EDT
--- OUTSIDE RECORDS SUMMARY | 2025-04-24 11:02 | XMS_ITS ---
Author Organization Jose G Schaefer MD Address 10 [facility] [address] [place] [phone] Care Team Providers Care Regional Safety Manager Name Role Phone Jose G Schaefer Primary Care Provider [phone] REASON FOR VISIT Discharge summary rec'd Encounters Encounter Location Date Provider Diagnosis Jose G Schaefer MD [address] [place] [address] [address] [place] [phone] 04/24/2025 Jose G Schaefer Plan Of Treatment Next Appt Details Provider Name:Jose G hilton, 05/02/2025 02:00:00 PM, [address] [place] [address], [address], [phone], Provider Name:Jose G Cooper ier, 07/15/2025 07:15:00 AM, [address] [place] [address], [address], [phone], Provider Name:Jose G hilton, 07/24/2025 02:30:00 PM, [address] [place] [address], [address], [phone], Provider Name:Jose G hilton, 03/30/2026 07:00:00 AM, [address] [place] [address], [address], [phone], Progress Notes * Kushal MARTINEZDOB:1965 (59 yo M)Acc No.[id number]:04/24/2025 Patient: Kushal HUANG :1965 A ge:59 Y S ex:Male Address:[address] [place] [address], [place] [address] * true * Date: Generated for Latesha gonzalez/Vikram/Karthiksmitting on: 08:49 AM EDT
--- OUTSIDE RECORDS SUMMARY | 2025-05-02 08:48 | XMS_ITS | Patient Health Record ---
Author Organization Jose G Schaefer MD Address [address] [place], [place] [address] Care Team Providers Care Mainstreaming Facilitator Name Role Phone Jose G Schaefer Primary Care Provider [phone] Allergies Allergen (clinical drug ingredient) Drug/Non Drug Allergy documented on EMR Reaction Allergy Type Onset Date Status raw eggs (uncoded) hives Allergy A ctive lobster, shellfish (uncoded) hives Allergy Active Nuts (uncoded) anaphylaxis Allergy Act ana Results Component Value Reference Range Notes Complete Blood Count Auto Di ff Reviewed date:07/05/2024 04:21:41 PM Interpretation: Performing Lab:[facility], [address] [place] [phone] Notes/Report: White Blood Count 7.4 4.8-10.8 X10*3/uL [...] NRBC Abs Auto 0.000 0.0-0.012 X10*3/uL Comprehensive [place]. Panel Fa st Reviewed date:07/05/2024 04:22:48 PM Interpretation: Performing Lab:[facility], [address] [place] [phone] Notes/Report: Sodium 142 135-145 mmol/L Potassium 3.8 [...] Panel Reviewed date:07/05/2024 04:18:22 PM Interpretation: Performing Lab:[address] [phone] Notes/Report: Triglycerides 125 <150 mg/dL Desirable Triglyceride: [...] date:07/22/2024 06:02:50 PM Interpretation:see back 07-22-24 Performing Lab:[address] [phone] Notes/Report: PSA,Total (Free>4and<10) 3.37 0.00-4.00 ng/mL A [...] t Reviewed date:07/05/2024 04:21:58 PM Interpretation: Performing Lab:[address] [phone] Notes/Report: Urine, Clean Catch Color Urine Dark Yellow Appearance Urine Cloudy PH 5.5 5.0-9.0 Glucose Urine UA Negative Negative mg/dL Urine Blood Negative Negative Specific [place] - Urine 1.025 1.005-1.025 Urine Protein 30 (1+) Neg-Trace mg/dL Urine Ketones 40 Negative mg/dL Nitrite Urine Negative Negative Leukocyte Esterase Urine Negative Negative RBC Urine 0-2 0-2 /HPF WBC Urine 0-5 0-5 /HPF Squamous Epithelial Cell Urine 0-2 0-2 /HPF Bacteria Urine None Seen None Seen Hyaline Casts Urine 0-2 0-2 /LPF Lipid Panel Reviewed date:10/28/2024 11:05:37 AM Interpretation: Performing Lab:[facility], [address] [place] [phone] Notes/Report: Triglycerides 118 <150 mg/dL Desirable Triglyceride: [...] Reviewed date:11/07/2024 08:04:03 AM Interpretation:GAYLE 11/05 Performing Lab:[facility], [address] [place] [phone] Notes/Report: PSA,Total (Free>4and<10) 3.54 0.00-4.00 ng/mL A [...] Panel Reviewed date:07/22/2024 05:45:39 PM Interpretation: Performing Lab:[facility], [address] [place] [phone] Notes/Report: Triglycerides 118 <150 mg/dL Desirable Triglyceride: [...] Pathology Reviewed date:01/28/2025 05:14:48 PM Interpretation: Performing Lab:[facility], [address] [place] [phone] Notes/Report: ------ Name: Kushal Martinez Age/Sex: 59/M : 1965 Unit#: [id number] Attend Dr: Bryce Bower MD Re01/24/25 Status : [facility] Location: [facility] Disch: ------ SPEC : [id number] RECD : 01/24/25 STATUS: BLU LEW NUM: [id number] B[place]E: 01/24/[address] [facility] [address]: Bryce Bower MD ENTERED: 01/24/25- [...] copic examination, 2 pieces in cassette C. ([facility]) CONTINUED ON NEXT PAGE ------ Name: Kushal Martinez Age/Sex: 59/M : 1965 Unit#: [id number] Attend Dr: Bryce Bower MD Re01/24/25 Status : [facility] Location: [facility] Disch: ------ SPEC : [id number] RECD : 01/24/25 STATUS: BLU LEW NUM: [id number] B[place]E: 01/24/[address] [facility] [address]: Bryce Bower MD ENTERED: 01/24/25 34 SP TYPE: Surgical OTHR DR: Jose G Schaefer MD ORDERED: HE Stain/9, Gross Micro L4/3 IHC S/NG Disclaimer NOTE: Unless otherwi se stated, all tissue is formalin-fixed and paraffin-embedded. Some or all of the immunohistochemical tests reported herein may have been developed and their performance characteristics determined by [facility]. They have not been cleared [...] [address] [place] [address] Bryce Bower MD [facility] [address] [place] [address] ------ Signed (signature on file) Kaleb Stoner MD 01/27/25 1416 ------ END OF REPORT Complete Blood Count no Diff Reviewed date:04/10/2025 12:29:57 PM Interpretation: Performing Lab:[facility], [address] [place] [phone] Notes/Report: White Blood Count 7.5 4.8-10.8 X10*3/uL [...] INR Reviewed date:04/10/2025 12:29:36 PM Interpretation: Performing Lab:[facility], [address] [place] [phone] Notes/Report: Prothrombin Time 11.3 10.9-12.4 SEC [employer]NATIONAL [...] Panel Reviewed date:04/10/2025 12:29:28 PM Interpretation: Performing Lab:[facility], [address] [place] [phone] Notes/Report: Sodium 140 135-145 mmol/L Potassium 4.3 [...] setting him up with an MRI. phone [phone], Megan Constantino 02/04/2025 08:19:16 AM >was told [...] Risk Notes Problem Malignant tumor of prostate (595265480) Prostate cancer (C61) Active confirmed Problem Asthma (860861141) Asthma (J45.909) Active confirmed Problem 936181331 Elevated cholesterol/high density lipoprotein ratio (E78.6) Active confirmed Problem 87694845 Elevated cholesterol (E78.00) Active confirmed Vital Signs Blood pressure diastolic 60 mm Hg 03/28/2025 Height 68 in 03/28/2025 Blood pressure systolic 122 mm Hg 03/28/2025 Weight 206 lbs 03/28/2025 BMI 31.32 kg/m2 03/28/2025 Encounters Encounter Location Date Provider Diagnosis Jose G Schaefer MD [address] [place] [id number] 07/05/2024 Jose G Schaefer Blood tests for routine general physical examination Z00.00 Jose G Schaefer MD [address] [place] [id number] 10/28/2024 Jose G Schaefer Elevated cholesterol E78.00 and PSA elevation R97.20 Jose G Schaefer MD [address] [place] [id number] 07/22/2024 Jose G Schaefer Elevated cholesterol E78.00 ; Annual physical exam Z00.00 ; PSA elevation R97.20 ; Colon cancer screening Z12.11 and Depression screening Z13.31 Jose G Schaefer MD [address] [place] [id number] 11/05/2024 Jose G Schaefer Elevated PSA R97.20 Jose G Schaefer MD [address] [place] [id number] 03/25/2025 Jose G Schaefer Asthma J45.909 and Prostate cancer C61 Jose G Schaefer MD [address] [place] [address] [id number] 03/28/2025 Jose G Schaefer Shortness of breath R06.02 and Prostate cancer C61 Jose G Schaefer MD [address] [place] [address] [id number] 03/28/2025 Jose G Schaefer MD [address] [place] [id number] 12/27/2024 Jose G Schaefer MD [address] [place] [address] [id number] 03/11/2025 Jose G Schaefer MD [address] [place] [address] [id number] 04/10/2025 Jose G Schaefer MD [address] [place] [address] [id number] 04/24/2025 Jose G Schaefer Assessments Encounter Date [...] used his inhaler. / order faxed to [facility] CS dept 10/28/2024 PSA elevation (ICD-10 - R97.20) 07/22/2024 PSA elevation (ICD-10 - R97.20) will continue to monitor, labs pending 03/28/2025 Prostate cancer (ICD-10 - C61) we discussed the outcome of his visit with the urologist and i have suggested a vist to the [facility] to gain a better understanding of the options 07/22/2024 Colon cancer screening (ICD-10 - Z12.11) guaiac negative 07/22/2024 Depression screening (ICD-10 - Z13.31) negative screen Plan Of Treatment Pending Test Test Name Order Date Electrocardiogram (EKG) 08/23/2019 CA stress test 03/28/2025 Next Appt Details Provider Name:Jose G Cooper ier, 05/02/2025 02:00:00 PM, [address] [place] [address], [address], [phone], Provider Name:Jose G Cooper ier, 07/15/2025 07:15:00 AM, [address] [place] [address], [address], [phone], Provider Name:Jose G Cooper ier, 07/24/2025 02:30:00 PM, [address] [place] [address], [address], [phone], Provider Name:Jose G Cooper ier, 03/30/2026 07:00:00 AM, [address] [place] [address], [address], [phone], Insurance Providers Payer Name Payer Address Payer Phone Subscriber Number Group Number Insured Name Patient Relationship to Insured Coverage Start Date Coverage End Date [employer] Choice [address] [address] Margi bojorquez, [place] [phone] [id number] Kushal Martinez Self - patient is the insured
--- OUTSIDE RECORDS SUMMARY | 2025-05-02 08:48 | XMS_ITS | Clinical Summary ---
Author Organization [facility] Address [address] [place] [address] Phone Care Team Providers Care Recycler Name Role Phone Unavailable Primary Care Provider Unavailabl e Encounters Date Type Department Care Team Description 04/21/2025 Orders Only [facility] [address] [place] [address] Homehealth, Interface ProviderMD from Last 3 Months [...] on file Insurance AET[employer] HMO POS EPO [facility] POS EPO [facility] POS [facility]PO [facility] POS EPO [facility] POS EPO [facility]OR [place] [facility] [place] [id number] [place] [phone] Additional Source Comments The information contained in this document represents components of the legal health record. It is not the complete legal health record.[facility]
--- OUTSIDE RECORDS SUMMARY | 2025-05-02 08:50 | XMS_ITS | Clinical Summary ---
Author Organization 299 [facility] Address [address] [place] [phone] Phone Care Team Providers Care Blood Tester Fowl Name Role Phone Jose G Schaefer MD Primary Care Provider Encounters Date Type Department Care Team Description 02/26/2025 Lab Requisition [facility] - Main Lab [address] [facility] [place] [address] Clint Kline MD Elevated prostate [...] (02/26/2025) Final Diagnosis A. Prostate, Left Mid [place] Biopsy: - Benign prostatic tissue. B. Prostate, Left Lat [place] Biopsy: - Benign prostatic tissue. C. Prostate, Left Mid [place] Biopsy: - Benign prostatic tissue. D. Prostate, Left Lat [place] Biopsy: - Benign prostatic tissue. E. Prostate, Left Mid [place] Biopsy: - Benign prostatic tissue. F. Prostate, Left Lat [place] Biopsy: - Benign prostatic tissue. G. Prostate, Left Anterior Transition Zone at [place] to [place] Biopsy: - Prostatic acinar adenocarcinoma (conventional type), grade group 2 (Nessa score 3+4=7). - Percentage pattern 4: 10%. - Tumor continuously involves 55% of 1 of 1 tissue core. H. Prostate, Right Mid [place] Biopsy: - Benign prostatic tissue. I. Prostate, Right Lat [place] Biopsy: - Benign prostatic tissue. J. Prostate, Right Mid [place] Biopsy: - Benign prostatic tissue. K. Prostate, Right Lat [place] Biopsy: - Benign prostatic tissue. L. Prostate, Right [place] Biopsy: - Benign prostatic tissue. M. Prostate, Right Lat [place] Biopsy: - Benign prostatic tissue. 02/28/2025 4:23 PM EDT [facility] Clinical Information Elevated PSA PSA: 3.37 (11/08/24) [id number] 02/28/2025 4:23 PM EDT [facility] Gross Description A. Prostate, Left Mid [place] Biopsy: Received, properly labeled, are two H and E stained slides and two unstained slides. B. Prostate, Left Lat [place] Biopsy: Received, properly labeled, are two H and E stained slides and two unstained slides. C. Prostate, Left Mid [place] Biopsy: Received, properly labeled, are two H and E stained slides and two unstained slides. D. Prostate, Left Lat [place] Biopsy: Received, properly labeled, are two H [...] Left Anterior Transition Zone at [place] to [place] Biopsy: Received, properly labeled, are two H and E stained slides and two unstained slides. H. Prostate, Right Mid [place] Biopsy: Received, properly labeled, are two H and E stained slides and two unstained slides. I. Prostate, Right Lat [place] Biopsy: Received, properly labeled, are two H [...] unstained slides. /al 02/28/2025 4:23 PM T [facility] Disclaimer Unless otherwise specified, all tissue is 10% NB formalin fixed and paraffin embedded. Technical pathology services provided by [facility] at [address], [place] [address] (CLIA #[id number]/Cassy Tran MD, Exerciser Horse) 02/28/2025 4:[address] [facility] Tissue Prostate / [...] Kline MD LAB PATHOLOGY ORDERABLES Final Result [facility] [address] [place] [address], from Last 3 Months Insurance [employer] Care Teams Blood Tester Fowl Relationship Specialty Start Date End Date Jose G Schaefer MD [address] [facility] [address] [place] [address] PCP - General Internal Medicine 02/26/25
--- OUTSIDE RECORDS SUMMARY | 2025-05-02 08:50 | XMS_ITS | Encounter Summary ---
Author Organization [facility] Address [address] [place] [address] Care Team Providers Care Physician Office Nurse Name Role Phone Jose G Schaefer MD Primary Care Provider Encounter Details Date Type Department Care Team (Late st Contact Info) Description 02/26/2025 Lab Requisition [facility] - Main Lab [address] [facility] [place] [address] Clint Kline MD [address] [place] [address] Elevated prostate specific antigen (PSA) [...] (02/26/2025) Final Diagnosis A. Prostate, Left Mid [place] Biopsy: - Benign prostatic tissue. B. Prostate, Left Lat [place] Biopsy: - Benign prostatic tissue. C. Prostate, Left Mid Mid Biopsy: - Benign prostatic tissue. D. Prostate, Left Lat [place] Biopsy: - Benign prostatic tissue. E. Prostate, Left Mid Base Biopsy: - Benign prostatic tissue. F. Prostate, Left Lat Base Biopsy: - Benign prostatic tissue. G. Prostate, Left Anterior Transition Zone at Mid-g[place] to [place] Biopsy: - Prostatic acinar adenocarcinoma (conventional type), grade group 2 (Nessa score 3+4=7). - Percentage pattern 4: 10%. - Tumor continuously involves 55% of 1 of 1 tissue core. H. Prostate, Right Mid [place] Biopsy: - Benign prostatic tissue. I. Prostate, Right Lat [place] Biopsy: - Benign prostatic tissue. J. Prostate, Right Mid Mid Biopsy: - Benign prostatic tissue. K. Prostate, Right Lat Mid Biopsy: - Benign prostatic tissue. L. Prostate, Right Mid Base Biopsy: - Benign prostatic tissue. M. Prostate, Right Lat Base Biopsy: - Benign prostatic tissue. 02/28/2025 4:23 PM EDT [facility] Clinical Information Elevated PSA PSA: 3.37 (11/08/24) [id number] 02/28/2025 4:23 PM [facility] Gross Description A. Prostate, Left Mid [place] Biopsy: Received, properly labeled, are two H and E stained slides and two unstained slides. B. Prostate, Left Lat [place] Biopsy: Received, properly labeled, are two H and E stained slides and two unstained slides. C. Prostate, Left Mid Mid Biopsy: Received, properly labeled, are two H and E stained slides and two unstained slides. D. Prostate, Left Lat [place] Biopsy: Received, properly labeled, are two H [...] Left Anterior Transition Zone at Mid-[place] to [place] Biopsy: Received, properly labeled, are two H and E stained slides and two unstained slides. H. Prostate, Right Mid [place] Biopsy: Received, properly labeled, are two H and E stained slides and two unstained slides. I. Prostate, Right Lat [place] Biopsy: Received, properly labeled, are two H [...] unstained slides. /al 02/28/2025 4:23 PM EDT [facility] Disclaimer Unless otherwise specified, all tissue is 10% NB formalin fixed and paraffin embedded. Technical pathology services provided by [facility] at [address] [place] [address] [address], [place] [address] (CLIA #[id number]/Cassy Tran MD, Hydraulic Blocker) 02/28/2025 4:23 PM EDT [facility] Tissue Prostate / Unknown 02/26/20252024 [...] PATHOLOGY ORDERABLES Final Result [facility] ([facility]) [facility] [address] [place] [address], documented in this encounter Visit Diagnoses Diagnosis Elevated prostate specific antigen (PSA) documented in this encounter Care Teams Physician Office Nurse Relationship Specialty Start Date End Date Jose G Schaefer MD [address] [place] [address] Drive [address] [place] [address] PCP - General Internal Medicine 02/26/25 documented as of this encounter
--- OUTSIDE RECORDS SUMMARY | 2025-05-02 08:50 | XMS_ITS | Patient Health Record ---
Author Organization [facility] Address [address] [place] [address] Care Team Providers Care Charging Operator Name Role Phone Jose G Schaefer MD Primary Care Provider Bryce Moreau [phone] Allergies Allergen (clinical drug ingredient) Drug/Non Drug Allergy documented on EMR Reaction Allergy Type Onset Date Status nuts,seafood (uncoded) Unknown Allergy Active Results Component Value Reference Range Notes Pathology (Not yet reviewed by provider) Interpretation: Performing Lab:[facility], [address] [place] [phone] Notes/Report: Reason For Referral No Information Medications [...] Problem Screening for malignant neoplasm of colon (806734224) Encounter for screening for malignant neoplasm of colon (Z12.11) Active confirmed Problem History of adenomatous polyp of colon (144496119) History of adenomatous polyp of colon (Z86.010) Active confirmed Problem Screening for malignant neoplasm of rectum (832102262) Encounter for screening for malignant neoplasm of rectum (Z12.12) Active confirmed Problem Preprocedural examination (964658376978478) Preprocedural examination (Z01.818) Active confirmed Problem Family History of Cancer of Colon (Situation) (427035520) Family history of colon cancer (Z80.0) Active confirmed Problem Diverticulosis of colon (853755431) Diverticulosis of colon (K57.30) Active confirmed Problem Serrated polyp of colon (714984170) Serrated polyp of colon (K63.5) Active confirmed Vital Signs Temperature 97.5 degrees Fahrenheit 09/25/2024 Blood pressure diastolic 01 mm Hg 09/25/2024 Height 68.5 in 09/25/2024 Blood pressure systolic 001 mm Hg 09/25/2024 Weight 212.8 lbs 09/25/2024 BMI 31.88 kg/m2 09/25/2024 Procedures Procedure Date Ordered Date Performed Result Body Sit e COLONOSCOPY 09/25/2024 N/A Encounters Encounter Location Date Provider Diagnosis [facility] [address] [place], [place] [phone] 01/24/2025 Bryce Bower [facility] [address] [place] [address] 09/25/2024 Bryce Bower History of adenomato us [...] Insured Coverage Start Date Coverage End Date [facility] [address] [place], [place] [id number] KUSHAL SUAREZ Self - patient is the insured Medical (General) History Medical History History ICD Code Tubular adenoma removed in 1 995- F/U colonoscopies were neg. in 1995, 2004, 07/2010 Denies MS,DM,CVA,Lung disease,renal dise ase Colonoscopy in 01/2016- 1 tubular adenoma and 1 hyperplastic polyp removed High cholesterol Screening colonoscopy in Apr with removal of a small tubular adenoma and an approximately 1 cm sessile serrated polyp from the ascending colon Surgical History Surgery Date(Month/Year)
--- OUTSIDE RECORDS SUMMARY | 2025-05-02 10:00 | XMS_ITS ---
Author Organization Jose G Schaefer MD Address [address] [facility] [address] [place] [phone] Care Team Providers Care Computer Analyst Name Role Phone Jose G Schaefer Primary Care Provider [phone] Allergies Allergen (clinical drug ingredient) Drug/Non Drug Allergy documented on EMR Reaction Allergy Type Onset Date Status raw eggs (uncoded) hives Allergy A ctive lobster, shellfish (uncoded) hives Allergy Active Nuts (uncoded) anaphylaxis Allergy Act ana REASON FOR VISIT 4 week PH/TCM Encounters Encounter Location Date Provider Diagnosis Jose G Schaefer MD [address] [place] [address] [place] [phone] 05/02/2025 Jose G Schaefer Plan Of Treatment Next Appt Details Provider Name:Jose G hilton, 05/02/2025 02:00:00 PM, [address] [place] [address], [address] [place] [address], [phone], Provider Name:Jose G hilton, 07/15/2025 07:15:00 AM, [address] [place] [address], [address], [phone], Provider Name:Jose G hilton, 07/24/2025 02:30:00 PM, [address] [place] [address], [address], [phone], Provider Name:Jose G Cooper ier, 03/30/2026 07:00:00 AM, [address], [address], [place], [place], [phone], Progress Notes * Kushal MARTINEZDOB:1965 (59 yo M)Acc No.[id number]:05/02/2025 Progress Notes Patient: Kushal HUANG Provider: Duncan Schaefer MD :1965 A ge:59 Y S ex:Male Date:05/02/2025 [facility] Subjective: * Chief Complaints: * 1 . 4 week PH/TCM. * HPI: S ymptom(s): no is a 59 yo male here for transitinal care management visit. * ROS: G eneral/Constitutional: Denies C hills. D enies F atigue. D enies F ever. D enies H eadache. E NT: Denies S ore throat. R espiratory: Denies C ough. D enies S hortness of breath at rest. D enies S hortness of breath with exertion. * Medical History: M edical History Verified. * Allergies: N uts: anaphylaxis, lobster, shellfish: hives, raw eggs: hives. Objective: * Vitals: Assessment: Plan: * Treatment: * * The named appointment provid er may or may not be the originator of this progress note, and it is not deemed complete until electronically signed by the appointment provider. Sign off status: Pending * Provider: Duncan Schaefer MD Date: Generated for Nawafi ng/Fadavisg/eTransmitting on: 08:49 AM EDT History and Physical Notes * HPI (History of Present Illness) Category Sub-Category Detail Notes Category Not es Symptom(s) no is a 59 yo male here for transitinal care management visit
[2025-05-02 10:23] LABS: Cholesterol 131 mg/dL (<200); HDL Cholesterol 33 mg/dL (>40); Triglycerides 158 mg/dL (<150)
== END 2025-05-02 08:29 | disposition home or self-care (01) ==
LOC: HO.LAB 08:28
PROVIDERS: PCP Internal Medicine; Visit Provider Internal Medicine Cardiovascular Disease
DX: I25.10 Atherosclerotic heart disease of native coronary artery without angina pectoris (principal)
CPT/HCPCS: 36415; 80061

== ENCOUNTER → 2025-06-09 08:03 | Outpatient (REF) | payer OTHER, SELFPAY ==
--- OUTSIDE RECORDS SUMMARY | 2024-10-28 02:00 | XMS_ITS ---
Author Organization Jose G Schaefer MD Address [address] [place], [place] [phone] Care Team Providers Care Rescue Worker Name Role Phone Jose G Schaefer Primary Care Provider [phone] Results Component Value Reference Range Notes Lipid Panel Reviewed date:10/28/2024 11:05:37 AM Interpretation: Performing Lab:[facility], [address] [place] [phone] Notes/Report: Triglycerides 118 <150 mg/dL Desirable Triglyceride: less than 150 mg/dL Borderline High Triglyceride 150-199 mg/dL High Triglyceride: 200-499 mg/dL Very High Triglyceride: greater than or equal to 5OO mg/dL Cholesterol 188 <200 mg/dL Desirable Cholesterol: less than 200 mg/dL Borderline High Cholesterol: 200-239 mg/dL High Cholesterol: greater than 239 mg/dL LDL Cholesterol Calculated 114 <100 mg/dL Desirable LDL: less than 100 mg/dL Near Optimal/Above Optimal LDL: 110-129 mg/dL Borderline High LDL: 130-159 mg/dL High LDL: 160-189 mg/dL Very High LDL: greater than or equal to 190 mg/dL HDL Cholesterol 51 >40 mg/dL Desirable HDL: greater than 40 mg/dL Note: This HDL assay may give artificially low results in patients with liver disease. PSA,Total (Free>4and<10) Reviewed date:11/07/2024 08:04:03 AM Interpretation:JOSR 11/05 Performing Lab:[facility], [address] [place] [phone] Notes/Report: PSA,Total (Free>4and<10) 3.54 0.00-4.00 ng/mL A Free PSA was not [...] Chemiluminescent Microparticle Immunoassay (CMIA) REASON FOR VISIT LIPID PANEL, PSA, TOTAL Encounters Encounter Location Date Provider Diagnosis Jose G Schaefer MD [address] [place] [address] [place] [phone] 10/28/2024 Jose G Schaefer Elevated cholesterol E78.00 and PSA elevation R97.20 Assessments Encounter Date Diagnosis (ICD Code) Assessment Notes Treatment Notes Treatment Clinical Notes Section Notes 10/28/2024 Elevated cholesterol (ICD-10 - E78.00) 10/28/2024 PSA elevation (ICD-10 - R97.20) Plan Of Treatment Next Appt Details Provider Name:Jose G hilton, 07/15/2025 07:15:00 AM, [address] [place] [address], [address], [phone], Provider Name:Jose G hilton, 07/24/2025 02:30:00 PM, [address] [place] [address], Suite [facility], [place], [place], [phone], Progress Notes * Kushal MARTINEZDOB:1965 (59 yo M)Acc No.[id number]:10/28/2024 Progress Note Patient: Justa Kushal ROCHA Provider: Duncan Schaefer MD :1965 A ge:59 Y S ex:Male Date:10/28/2024 Address:[address] [place], [phone] Subjective: * Chief Complaints: * 1 . LIPID PANEL, PSA, TOTAL. * Medical History: Objective: * Vitals: Assessment: * Assessment: 1. E levated cholesterol - E78.00 (Primary) 2 . P SA elevation - R97.20? Plan: * Treatment: 2. P SA elevation L AB: PSA,Total (Free>4and<10) (Collection Date & Time - 10/28/2024 07:00 AM) * Procedure Codes: 3 6415 VENIPUNCT, ROUTINE* * * The named appointment provid er may or may not be the originator of this progress note, and it is not deemed complete until electronically signed by the appointment provider. Sign off status: Pending * Provider: Duncan Schaefer MD Date: 0 10/28/2024 Generated for Latesha gonzalez/Vikram/Lorene on: 1 08/09/2024 08:07 AM EST
--- OUTSIDE RECORDS SUMMARY | 2024-11-05 03:30 | XMS_ITS ---
Author Organization Jose G Schaefer MD Address [address] [place], [place] [phone] Care Team Providers Care Hat Body Sorter Name Role Phone Jose G Schaefer Primary Care Provider Allergies Allergen (clinical drug ingredient) Drug/Non Drug Allergy documented on EMR Reaction Allergy Type Onset Date Status raw eggs (uncoded) hives Allergy A ctive lobster, shellfish (uncoded) hives Allergy Active Nuts (uncoded) anaphylaxis Allergy Act ana Reason For Referral Reason PSA Elevation Diagnosis 1 PSA elevation (R97.2 0) Referral Organization Jose G Schaefer MD Referring Provider First Name Jose G Referring Provider Last Name Olive Referring Provider Speciality Internal M edicine Referred Provider JACOB HEATON Referred Provider Specialty Urology General Notes Megan Constantino 0 11/08/2024 10:57:22 AM >info faxed, Megan Constantino 11/15/2024 03:11:48 PM > was told patient declined appt wants an MRI, patient was called left a voice mail, Megan Constantino 11/18/2024 03:20:05 PM >spoke with [facility] about above refill, they said there is a message to the provider regarding if he can have an MRI done first. (there is a standing order from last his last ). Patient will keep me updated, Megan Constantino 12/16/2024 10:22:11 AM > let message for patient to call office regarding referral, Megan Constantino 12/16/2024 10:49:32 AM > spoke with patient, he will be calling their office, Megan Constantino 12/27/2024 08:47:08 AM > spoke with office they tried to make an appt for him but his refused, sating his insurance would not cover it. message sent to PCP., Megan Constantino 12/30/2024 03:25:21 PM >per PCP patient should see his Urologist, Megan Constantino 01/07/2025 07:55:43 AM >left another message for patient to call his urologist to set up an appt, Megan Constantino 01/09/2025 03:17:20 PM > left another message for patient to call, Megan Constantino 01/27/2025 09:19:47 AM >patient finally called me back he will be seeing the Urologist, they will be setting him up with an MRI. phone [phone], Megan Constantino 02/04/2025 08:19:16 AM >was told patient is aware of appt Clinical Notes Isabel Puente 02/17/2025 03:04:11 PM >OFFICE NOTE RECD Referral Priority Routine Referral Appointment Date 02/17/2025 REASON FOR VISIT 3 MO F/U, CBACK PSA, Video [phone] Medications Medication SIG (Take, Route, Frequency, Duration) Notes Start Date End Date Status Atorvastatin Calcium 20 MG TAKE 1 TABLET BY MOUTH EVERY DAY for 90 Active Vital Signs Height 68 in 11/05/2024 Weight 195 lbs 11/05/2024 BMI 29.65 kg/m2 11/05/2024 weight is 195 at home BP not taken Encounters Encounter Location Date Provider Diagnosis Jose G Schaefer MD [address] [place], [place] [phone] 11/05/2024 Jose G Schaefer Elevated PSA R97.20 Assessments Encounter Date Diagnosis (ICD Code) Assessment Notes Treatment Notes Treatment Clinical Notes Section Notes 11/05/2024 Elevated PSA (ICD-10 - R97.20) discussed recent lab report and continue rise in PSA level, he is going to call dr heaton and get mri/ send referral to dr heaton Plan Of Treatment Treatment Notes Assessment Notes Elevated PSA discussed recent lab report and continue rise in PSA level, he is going to call dr heaton and get mri/ send referral to dr heaton Referrals Referral Date Details 11/05/2024 11/05/2024, PSA Felix madsen, JACOB BLAIR Next Appt Details Provider Name:Jose G Cooper ier, 07/15/2025 07:15:00 AM, [address] [facility], [address], [place], [place], [phone], Provider Name:Jose G Cooper ier, 07/24/2025 02:30:00 PM, [address] [facility], [address], [place], [place], [phone], Progress Notes * Kushal MARTINEZDOB:1965 (59 yo M)Acc No.[id number]:11/05/2024 Patient: Justa PRAKASHKushal JOSÉ Provider: Duncan Schaefer MD :1965 A ge:59 Y S ex:Male Date:11/05/2024 Address:[address] [place], [place] [phone] Subjective: * Chief Complaints: * 3 MO F/TOÑA Rakeshdetam [phone] * HPI: S ymptom(s): Telehealth L ocation of provider rendering services: [address] [facility], [address], L ocation of patient: a t address listed in demographics for today's visit, P atient identification confirmed using: NADER Olson ame, T elehealth method: T elephone only. Patient not visible to care provider., C onsent: P atient verbally consented to treatment, Patient verbally consented to billing insurance company, Patient informed of any privacy concerns related to method of visit, T otal time spend talking with patient (minutes) 1 8. patient is a 59 yo male audio telehealth visit, here for 3 month follow up visit/ here for follow up of psa. * ROS: G eneral/Constitutional: Denies C hills. D enies F atigue. D enies F ever. D enies H eadache. E NT: Denies S ore throat. R espiratory: Denies C ough. D enies S hortness of breath at rest. D enies S hortness of breath with exertion. G astrointestinal: Denies D iarrhea. D enies N ausea. * Medical History: * Surgical History: * Hospitalization/Major Diagno stic Procedure: * Medications: T akingAtorvastatin Calcium 20 MG Tablet TAKE 1 TABLET BY MOUTH EVERY DAY Medication List reviewed and reconciled with the patientTaking Atorvastatin Calcium 20 MG Tablet TAKE 1 TABLET BY MOUTH EVERY DAY Medication List reviewed and reconciled with the patient * Allergies: N uts: anaphylaxislobster, shellfish: hivesraw eggs: hivesyes[Allergies Verified] Objective: * Vitals: H t: 68, Wt: 195, BMI:29.65, Wt-k.45. weight is 195 at home BP not taken. Assessment: * Assessment: 1. E levated PSA - R97.20 (Primary) Plan: * Treatment: 2. O thers Referral To:JACOB HEATON Urology Reason:PSA Elevation * Procedure Codes: * * Sign off status: Completed true * Provider: Duncan Schaefer MD Date: 0 11/05/2024 Generated for Latesha gonzalez/Vikram/Debbieitting on: 08/09/2024 08:07 AM EST History and Physical Notes * HPI (History of Present Illness) Category Sub-Category Detail Notes Category Not es Symptom(s) Telehealth Location of [facility] rendering services:: [address] [place] [address], [address] patient is a 59 yo male audio telehealth visit, here for 3 month follow up visit/ here for follow up of psa Location of patient:: at address listed in demographics for today's visit Patient identification confirmed using:: Name, Telehealth method:: Telephone only. Natalie ent not visible to care provider. Consent:: Patient verbally c onsented to treatment, Patient verbally consented to billing insurance company, Patient informed of any privacy concerns related to method of visit Total time spend talking with patient (m inutes): 18 Consultation Request Notes Referral Date Referring Provider Referred Provider Not es 11/05/2024 Jose G Schaefer KEVIN PSA Elevati on
--- OUTSIDE RECORDS SUMMARY | 2024-12-27 03:48 | XMS_ITS ---
Author Organization Jose G Schaefer MD Address [address] [place] [phone] Care Team Providers Care Special Services Supervisor Name Role Phone Jose G Schaefer Primary Care Provider REASON FOR VISIT appt with Urology Encounters Encounter Location Date Provider Diagnosis Jose G Schaefer MD [address] [place] [phone] 12/27/2024 Jose G Schaefer Plan Of Treatment Next Appt Details Provider Name:Jose G Cooper ier, 07/15/2025 07:15:00 AM, [address] [place] [address], [address], [phone], Provider Name:Jose G Cooper ier, 07/24/2025 02:30:00 PM, [address] [place] [address], [address], [phone], Progress Notes * Kushal MARTINEZDOB:1965 (59 yo M)Acc No.[id number]:12/27/2024 Patient: Justa Kushal ROCHA :1965 A ge:59 Y S ex:Male Address: [place], [address] * true * Date: Generated for Latesha gonzalez/Vikram/Lorene on: 08/09/2024 08:08 AM EST
--- OUTSIDE RECORDS SUMMARY | 2025-01-24 02:30 | XMS_ITS ---
Author Organization [facility] Address [address] [place] [phone] Care Team Providers Care Tender Coordinator Name Role Phone Olive ELIZABETH, Jose G Primary Care Provider Bryce Moreau [phone] REASON FOR VISIT family hx of colon cancer,hx of adenomatous polyp, screening for malignant neoplasm of the colon, serrated polyp of the colon,preprocedural exam Encounters Encounter Location Date Provider Diagnosis [facility] [place] [address] [place] [phone] 01/24/2025 Bryce Bower Plan Of Treatment No Information Progress Notes * EZEKIEL SUAREZ MDOB:[birth year] (59 yo M)Acc No.[id number]:01/24/2025 COLON WITH MAC Patient: Justa ROCHAEZEKIEL Provider: Yessica Bower MD :1965 A ge:59 Y S ex:Male Date:01/24/2025 [facility] Pcp:Jose G Schaefer MD Subjective: * Chief Complaints: * F amily hx of colon cancer,hx of adenomatous polyp, screening for malignant neoplasm of the colon, serrated polyp of the colon,preprocedural exam * The named appointment provid er may or may not be the originator of this progress note, and it is not deemed complete until electronically signed by the appointment provider. Sign off status: Pending * Provider: Yessica Bower MD Date: 0 01/24/2025 Generated for Latesha gonzalez/Vikram/eTransmitting on: 08/09/2024 08:08 AM EST
--- OUTSIDE RECORDS SUMMARY | 2025-03-11 10:13 | XMS_ITS ---
Author Organization Jose G Schaefer MD Address [address] [place] [phone] Care Team Providers Care Home Care Manager Rn Name Role Phone Jose G Schaefer Primary Care Provider [phone] REASON FOR VISIT refill Encounters Encounter Location Date Provider Diagnosis Jose G Schaefer MD [address] [facility] [address] [place] [phone] 03/11/2025 Jose G Schaefer Plan Of Treatment Next Appt Details Provider Name:Jose G Cooper ier, 07/15/2025 07:15:00 AM, [address] [place] [address], [address], [phone], Provider Name:Jose G Cooper ier, 07/24/2025 02:30:00 PM, [address] [place] [address], [address], [phone], Progress Notes * Kushal MARTINEZDOB:1965 (59 yo M)Acc No.[id number]:03/11/2025 Patient: Kushal HUANG :1965 A ge:59 Y S ex:Male Address: [place], [address] * true * Date: Generated for Latesha gonzalez/Vikram/eTransmitting on: 08/09/2024 08:08 AM EST
--- OUTSIDE RECORDS SUMMARY | 2025-03-25 10:00 | XMS_ITS ---
Author Organization Jose G Schaefer MD Address [address] [place], [place] [phone] Care Team Providers Care Chemical Detection Expert Name Role Phone Jose G Schaefer Primary [...] Status W/U Status Risk Notes Problem Asthma (797183568) Asthma (J45.909) Active confirmed Problem Malignant tumor of prostate (665109913) Prostate cancer (C61) Active confirmed Vital Signs Blood pressure systolic 172 mm Hg 03/25/20 25 Blood pressure diastolic 84 mm Hg 025 Height 68 in 03/25/2025 Weight 206 lbs 03/25/2025 BMI 31.32 kg/m2 03/25/2025 weight is up 11 pounds since 11-05-24 Encounters Encounter Location Date Provider Diagnosis Jose G Schaefer MD [address] [place] [address] [place] [phone] 03/25/2025 Jose G Schaefer Asthma J45.909 and [...] Details Follow Up: 2 - 3 Days, Wallyo n: Provider Name:Jose G hilton, 07/15/2025 07:15:00 AM, [address] [place] [address], [address], [phone], Provider Name:Jose G hilton, 07/24/2025 02:30:00 PM, [address] [place] [address], [place] [address], [place], [place], [phone], Progress Notes * Kushal MARTINEZDOB:1965 (59 yo M)Acc No.[id number]:03/25/2025 Progress Notes Patient: Kushal HUANG Provider: Duncan Schaefer MD :1965 A ge:59 Y S ex:Male Date:03/25/2025 Address:[address] [place], [place] [phone] Subjective: * Chief Complaints: * D iscuss [...] slight wheeze. Assessment: * Assessment: 1. A [facility] - J45.909 (Primary) 2 . P rostate cancer - C61 Plan: * Treatment: * Procedure Codes: * Follow Up: 2 - 3 Days * * Sign off status: Completed true * Provider: Duncan Schaefer MD Date: 0 03/25/2025 Generated for Latesha gonzalez/Vikram/Karthiksmitting on: 08/09/2024 08:08 AM EST History and Physical Notes * [...]
--- OUTSIDE RECORDS SUMMARY | 2025-03-28 09:00 | XMS_ITS ---
Author Organization Jose G Schaefer MD Address [address] [place] [phone] Care Team Providers Care Medical Biller/Coder Name Role Phone Jose G Schaefer Primary Care Provider Allergies Allergen (clinical drug ingredient) Drug/Non Drug Allergy documented on EMR Reaction Allergy Type Onset Date Status raw eggs (uncoded) hives Allergy A ctive lobster, shellfish (uncoded) hives Allergy Active Nuts (uncoded) anaphylaxis Allergy Act ana REASON FOR VISIT 3 day f/u Medications Medication SIG (Take, Route, Frequency, Duration) Notes Start Date End Date Status Albuterol Sulfate HFA 108 (90 Base) MCG/ACT 1 puff as needed Inhalation every 4 hrs for 30 days 03/25/2025 Active Atorvastatin Calcium 20 MG TAKE 1 TABLET BY MOUTH EVERY DAY for 90 Active Vital Signs Blood pressure systolic 122 mm Hg 03/28/20 25 Blood pressure diastolic 60 mm Hg 025 Height 68 in 03/28/2025 Weight 206 lbs 03/28/2025 BMI 31.32 kg/m2 03/28/2025 Encounters Encounter Location Date Provider Diagnosis Jose G Schaefer MD [address] [place] [phone] 03/28/2025 Jose G Schaefer Shortness of breath R06.02 and Prostate cancer C61 Assessments Encounter Date Diagnosis (ICD Code) Assessment Notes Treatment Notes Treatment Clinical Notes Section Notes 03/28/2025 Shortness of breath (ICD-10 - R06.02) seems mostly likely lung since it is there all the time and heard a little wheeze when he used his inhaler. / order faxed to [facility] dept 03/28/2025 Prostate cancer (ICD-10 - C61) we discussed the outcome of his visit with the urologist and i have suggested a vist to the [facility] to gain a better understanding of the options Plan Of Treatment Treatment Notes Assessment Notes Shortness of breath seems mostly likely lung since it is there all the time and heard a little wheeze when he used his inhaler. / order faxed to [facility] dept Prostate cancer we discussed the out come of his visit with the urologist and i have suggested a vist to the [facility] to gain a better understanding of the options Pending Test Test Name Order Date CA stress test 03/28/2025 Next Appt Details Follow Up: 4 Weeks, Reason: Provider Name:Jose G hilton, 07/15/2025 07:15:00 AM, [address] [place] [address], [address], [phone], Provider Name:Jose G hilton, 07/24/2025 02:30:00 PM, [address] [place] [address], [place] [address], [place], [place], [phone], Progress Notes * Kushal MARTINEZDOB:1965 (59 yo M)Acc No.[id number]:03/28/2025 Progress Notes Patient: Kushal HUANG Provider: Duncan Schaefer MD :1965 A ge:59 Y S ex:Male Date:03/28/2025 Address:[address] [place], [place] [phone] Subjective: * Chief Complaints: * 3 day f/u * HPI: S ymptom(s): here for follow up. little easier to take a deep breath. was able to walk a mile without stopping.. difficulty walking has been going on for 3 or 4 months. may be a little better with the inhaler. * ROS: G eneral/Constitutional: Denies C hills. D enies F atigue. D enies F ever. D enies H eadache. E NT: Denies S ore throat. R espiratory: Denies C ough. D enies S hortness of breath at rest. A dmits S hortness of breath with exertion. G astrointestinal: Denies D iarrhea. D enies N ausea. * Medical History: * Surgical History: * Hospitalization/Major Diagno stic Procedure: * Medications: T akingAtorvastatin Calcium 20 MG Tablet TAKE 1 TABLET BY MOUTH EVERY DAY Albuterol Sulfate HFA 108 (90 Base) MCG/ACT Aerosol Solution 1 puff as needed Inhalation every 4 hrs Medication List reviewed and reconciled with the patientTaking Atorvastatin Calcium 20 MG Tablet TAKE 1 TABLET BY MOUTH EVERY DAY Taking Albuterol Sulfate HFA 108 (90 Base) MCG/ACT Aerosol Solution 1 puff as needed Inhalation every 4 hrs Medication List reviewed and reconciled with the patient * Allergies: N uts: anaphylaxislobster, shellfish: hivesraw eggs: hivesyes[Allergies Verified] Objective: * Vitals: H t: 68, Wt: 206, BMI:31.32, BP:122/60, Wt-k.44. * Examination: G eneral Examination: GENERAL APPEARANCE: a lert, well hydrated, in no distress.? HEART: n o murmurs, rubs, gallops, regular rate and rhythm.? LUNGS: c lear anteriorly and posteriorly, clear to auscultation bilaterally. Assessment: * Assessment: 1. S hortness of breath - R06.02 (Primary) 2 . P rostate cancer - C61 ? Plan: * Treatment: 2. P rostate cancer Notes: we discussed the outcome of his visit with the urologist and i have suggested a vist to the [facility] to gain a better understanding of the options * Procedure Codes: * Follow Up: 4 Weeks * * Sign off status: Completed true * Provider: Duncan Schaefer MD Date: 0 03/28/2025 Generated for Latesha gonzalez/Vikram/eTsaviitting on: 1 08/09/2024 08:08 AM EST History and Physical Notes * HPI (History of Present Illness) Category Sub-Category Detail Notes Category Not es Symptom(s) here for follow up. little easier to take a deep breath. was able to walk a mile without stopping.. difficulty walking has been going on for 3 or 4 months. may be a little better with the inhaler Examination Category Sub-Category Detail Notes Category Not es General Examination GENERAL APPEARANCE: alert, w ell hydrated, in no distress HEART: no murmurs, rubs, ga llops, regular rate and rhythm LUNGS: clear anteriorly and posteriorly, clear to auscultation bilaterally
--- OUTSIDE RECORDS SUMMARY | 2025-03-28 09:32 | XMS_ITS ---
Author Organization Jose G Schaefer MD Address [address] [place] [phone] Care Team Providers Care Fraud Representative Name Role Phone Jose G Schaefer Primary Care Provider [phone] REASON FOR VISIT Urology referral Encounters Encounter Location Date Provider Diagnosis Jose G Schaefer MD [address] [place] [phone] 03/28/2025 Jose G Schaefer Plan Of Treatment Next Appt Details Provider Name:Jose G Cooper ier, 07/15/2025 07:15:00 AM, [address] [place] [address], [address], [phone], Provider Name:Jose G Cooper ier, 07/24/2025 02:30:00 PM, [address] [place] [address], [address], [phone], Progress Notes * Kushal MARTINEZDOB:1965 (59 yo M)Acc No.[id number]:03/28/2025 Patient: Kushal HUANG :1965 A ge:59 Y S ex:Male Address: [place], [address] * * Date:
--- OUTSIDE RECORDS SUMMARY | 2025-04-10 03:30 | XMS_ITS ---
Author Organization Jose G Schaefer MD Address [address] [facility] [address] [place] [phone] Care Team Providers Care Central Sterile Supply Technician Name Role Phone Jose G Schaefer Primary Care Provider REASON FOR VISIT refusing appt to go over stress test Encounters Encounter Location Date Provider Diagnosis Jose G Schaefer MD [facility] [address] [place] [phone] 04/10/2025 Jose G Schaefer Plan Of Treatment Next Appt Details Provider Name:Jose G Cooper ietg, 07/15/2025 07:15:00 AM, [address] [place] [address], [address], [phone], Provider Name:Jose G Cooper ietg, 07/24/2025 02:30:00 PM, [address] [place] [address], [address], [phone], Progress Notes * Kushal MARTINEZDOB:1965 (59 yo M)Acc No.[id number]:04/10/2025 Patient: Kushal HUANG :1965 A ge:59 Y S ex:Male Address: [place], [address] * true * Date: Generated for Latesha gonzalez/Vikram/Lorene on: 08/09/2024 08:07 AM EST
--- OUTSIDE RECORDS SUMMARY | 2025-04-24 10:02 | XMS_ITS ---
Author Organization Jose G Schaefer MD Address [address] [place] [phone] Care Team Providers Care Production Consultant Name Role Phone Jose G Schaefer Primary Care Provider REASON FOR VISIT Discharge summary rec'd Encounters Encounter Location Date Provider Diagnosis Jose G Schaefer MD [facility] [address] [place] [id number] 04/24/2025 Jose G Schaefer Plan Of Treatment Next Appt Details Provider Name:Jose G Cooper ier, 07/15/2025 07:15:00 AM, [address] [place] [address], [address], [phone], Provider Name:Jose G Cooper ier, 07/24/2025 02:30:00 PM, [address] [place] [address], [address], [phone], Progress Notes * Kushal MARTINEZDOB:1965 (59 yo M)Acc No.[id number]:04/24/2025 Patient: Justa Kushal ROCHA :1965 A ge:59 Y S ex:Male Address: [place], [address] * true * Date: Generated for Latesha gonzalez/Vikram/Lorene on: 08/09/2024 08:08 AM EST
--- OUTSIDE RECORDS SUMMARY | 2025-05-02 09:00 | XMS_ITS ---
Author Organization Jose G Schaefer MD Address [address] [place], [place] [phone] Care Team Providers Care Rail Maintenance Worker Name Role Phone Jose G Schaefer [...] Risk Notes Problem Atherosclerotic heart disease of [place] coronary artery without angina pectoris (037453148743780) Coronary artery arteriosclerosis (I25.10) Active confirmed Problem History of coronary artery bypass grafting (300387313) History of coronary artery bypass graft x 3 (Z95.1) Active confirmed Vital Signs Blood pressure systolic 104 mm Hg 05/02/20 25 Blood pressure diastolic 50 mm Hg 025 Height 68 in 05/02/2025 Weight 197 lbs 05/02/2025 BMI 29.95 kg/m2 05/02/2025 weight is down 9 pounds [facility] e 03-28-25 Encounters Encounter Location Date Provider Diagnosis Jose G Schaefer MD [address] [place] [address] Drive [address] [place], [place] [phone] 05/02/2025 Jose G Schaefer Coronary artery arteriosclerosis [...] 2 Months, Reason: Provider Name:Jose G hilton, 07/15/2025 07:15:00 AM, [address] [place] [address], [address], [place], [place], [phone], Provider Name:Jose G hilton, 07/24/2025 02:30:00 PM, [address], [address], [place], [place], [phone], Progress Notes * Kushal MARTINEZDOB:1965 (59 yo M)Acc No.[id number]:05/02/2025 Progress Notes Patient: Kushal HUANG Provider: Duncan Schaefer MD :1965 A ge:59 Y S ex:Male Date:05/02/2025 [facility] Subjective: * Chief Complaints: * 4 week [...] Duncan Schaefer MD Date: Generated for Latesha gonzalez/Faxing/eTransmitting on: 08/09/2024 08:07 AM EST History and Physical Notes * HPI (History of Present Illness) Category Sub-Category Detail Notes Category Not es Symptom(s) no is a 59 yo male here [...]
--- NOTE | 2025-06-09 08:06 | CA_ITS ---
Transthoracic Echocardiogram Patient (Last, First, Middle): Kushal Martinez M Gender: Male Date of : 1965 Age: 59 Procedure Date: 06/09/2025 Procedure Type: Transthoracic Echocardiogram Location: OP Height: 172.72 cm Weight: 83.01 kg BSA: 1.97 m2 Heart Rate: 69 bpm BP: 110 / 62 mmHg Care Giver: SB Referring MD: Ariel Rader MD Symptoms: Z95.1 - Presence of aortocoronary bypass graft/post op atrial fibrillation Study Quality: Adequate ECG Rhythm: Sinus Conclusions: - The left ventricular systolic function is normal. The calculated ejection fraction is 68% by biplane method. - No obvious valvular pathology seen on this study. Findings Left Ventricle Normal left ventricular cavity size. There is normal left ventricular wall thickness. The left ventricular systolic function is normal. The calculated ejection fraction is 68% by biplane method. There is no evidence of regional wall motion abnormalities. There is paradoxical septal motion consistent with post-operative status. Diastolic function is normal for age. Right Ventricle Normal right ventricular cavity size. There is mildly decreased right ventricular systolic function. Atria Both atria are normal in size. Aortic Valve There is a normal trileaflet aortic valve. There is no aortic valve stenosis. There is no aortic valve regurgitation. Mitral Valve The mitral valve appears normal. There is no mitral valve regurgitation. There is no mitral valve stenosis. Pulmonic Valve The pulmonic valve is likely normal. Tricuspid Valve Normal tricuspid valve structure. There is trace tricuspid valve regurgitation. There is no evidence of pulmonary hypertension. Great Vessels The asc aorta is normal in size. Small plaque is seen in the sino tubular ridge. Venous The inferior vena cava is normal in size and collapses greater than 50% with inspiration. Pericardium/Pleural There is a small pericardial effusion. Prior Study Comparison No significant change compared to prior study dated: 04/10/2025. Recommendations, Care & Conclusions No obvious valvular pathology seen on this study. Measurements 2D Linear Measurements IVSd: 0.83 0.6-0.9/0.6-1.0 cm LVIDd: 4.82 3.9-5.3/4.2-5.9 cm LVIDd Index: 2.45 2.4-3.2/2.2-3.1 cm/m2 LVIDs: 3.25 2.0-3.6 cm LVPWd: 0.88 0.7-1.1 cm LA Diam: 3.70 2.7-3.8/3.0-4.0 cm LAIDs Index: 1.88 1.5-2.3 cm/m2 LV Mass: 173.92 67-162/88-224 g LV Mass Index: 88.29 43-95/49-115 g/m2 LVOT Diam: 2.20 3.0+(-)1.3 cm 2D Systolic Function EF 4C: 77.50 >55% EF 2C: 54.50 >55% EF BiP: 68.30 >55% Mitral Valve MV Pk E: 1.05 MV PK A: 0.52 MV Decel Time: 194.00 E/A: 2.00 E'Lateral: 10.10 E'Medial: 9.14 E/E' Med: 11.50 E/E' Lat: 10.40 PHT: 57.00 MVA PHT: 3.86 Decel [place]: 5.39 Aortic Valve AoV Pk Sandro: 1.40 AoV Pk Grad: 8.00 MELISSA: 3.36 LVOT LVOT Pk Sandro: 1.11 LVOT Mn Sandro: 0.75 LVOT VTI: 0.24 LVOT Pk Grad: 5.00 LVOT Mn Grad: 3.00 LVOT Diam: 2.20 LVOT Area: 3.80 Diastolic Function MV Pk E: 1.05 MV Pk A: 0.52 E/A: 2.00 E'Medial: 9.14 E/E' Med: 11.50 E' Laterial: 10.10 E/E' Lat: 10.40 Right Ventricle TAPSE (mm): 13.10 TVS' Sandro: 9.46 Tricuspid Valve TR Pk Sandro: 2.21 TR Pk Grad: 20.00 RA Press: 3.00 RVSP: 23.00 Great Vessels Aorta Sinus of Valsalva: 3.30 2.0-3.5 cm Ao Asc: 3.50 2.1-3.4 cm Ao Arch: 3.20 Pulmonary Veins Pulm Vein S/D 0.90 Pulmonary Valve PV Pk Sandro: 0.74 Peak PV Grad: 2.00 Updated in Other Vendor System with Status of Final Derick Brown MD electronically signed on 06/09/2025 1:50:22 PM with status of Final
--- OUTSIDE RECORDS SUMMARY | 2025-06-09 08:07 | XMS_ITS | Clinical Summary ---
Author Organization [facility] Address [address] [facility] [place] [phone] Phone Care Team Providers Care Plate Cutter Name Role Phone Unavailable Primary Care Provider Unavailabl e Encounters Date Type Department Care Team Description 04/21/2025 Orders Only [facility] [address] [place] [address] Homehealth, Interface ProviderMD from Last 3 Months [...] on file Insurance [employer] HMO POS EPO [facility] POS EPO [facility] POS EPO [facility] POS EPO [facility] POS EPO [employer] [facility] [place] [id number] [place] Additional Source Comments The information contained in this document represents components of the legal health record. It is not the complete legal health record.[facility]
--- OUTSIDE RECORDS SUMMARY | 2025-06-09 08:07 | XMS_ITS | Clinical Summary ---
Author Organization [facility] Address [address] [place] [phone] Phone Care Team Providers Care Ict Managers Name Role Phone Jose G Schaefer MD Primary Care Provider Social History Tobacco Use Types Packs/Day Years [...] Influencers of Health Screening 02/27/2025 COVID-19 Vaccine (1 - 2024-2 6 season) 2025 Influenza Vaccine (#1) 2025 RSV [...] on patient's age to complete this topic Insurance [employer] Care Teams Ict Managers Relationship Specialty Start Date End Date Jose G Schaefer MD [address] [place] [address] [address] [place] [address] PCP - General Internal Medicine 02/26/25
--- OUTSIDE RECORDS SUMMARY | 2025-06-09 08:07 | XMS_ITS | Patient Health Record ---
Author Organization [facility] Address [address] [place] [address] Care Team Providers Care Bioinformatics Scientist Name Role Phone Jose G Schaefer MD Primary Care Provider Bryce Moreau [phone] Allergies Allergen (clinical drug ingredient) Drug/Non Drug Allergy documented on EMR Reaction Allergy Type Onset Date Status nuts,seafood (uncoded) Unknown Allergy Active Results Component Value Reference Range Notes Pathology (Not yet reviewed by provider) Interpretation: Performing Lab:[facility], [address] [place] [phone] Notes/Report: Reason For Referral No Information Medications Medication SIG (Take, Route, Frequency, Duration) Notes Start Date End Date Status Atorvastatin Calcium 20 MG Tablet Oral; Duration: 90 Days Acti ve Immunizations Vaccine Route Administration Date Status Comme nts Influenza Unknown 04/07/2021 Administered Influenza Unknown 09/25/2024 Refused Social History Social History Additional Details Category Social Info Options Details Miscellaneous: Marital status: 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 Section Notes: Nonsmoker; no sig alcohol Nonsmoker; no sig alcohol Nonsmoker; no sig alcohol Problems Problem Type SNOMED Code ICD Code Onset Dates Problem Status W/U Status Risk Notes Problem Screening for malignant neoplasm of colon (670284862) Encounter for screening for malignant neoplasm of colon (Z12.11) Active confirmed Problem History of adenomatous polyp of colon (469279827) History of adenomatous polyp of colon (Z86.010) Active confirmed Problem Screening for malignant neoplasm of rectum (300591131) Encounter for screening for malignant neoplasm of rectum (Z12.12) Active confirmed Problem Preprocedural examination (680550482436023) Preprocedural examination (Z01.818) Active confirmed Problem Family History of Cancer of Colon (Situation) (580347965) Family history of colon cancer (Z80.0) Active confirmed Problem Diverticulosis of colon (548418529) Diverticulosis of colon (K57.30) Active confirmed Problem Serrated polyp of colon (230752359) Serrated polyp of colon (K63.5) Active confirmed Vital Signs Temperature 97.5 degrees Fahrenheit 09/25/2024 Blood pressure diastolic 01 mm Hg 09/25/2024 Height 68.5 in 09/25/2024 Blood pressure systolic 001 mm Hg 09/25/2024 Weight 212.8 lbs 09/25/2024 BMI 31.88 kg/m2 09/25/2024 Procedures Procedure Date Ordered Date Performed Result Body Sit e COLONOSCOPY 09/25/2024 N/A Encounters Encounter Location Date Provider Diagnosis [facility] [address] [place] [phone] 01/24/2025 Bryce Bower [facility] [address] [place] [phone] 09/25/2024 Bryce Bower History of adenomato us polyp of colon Z86.010 ; Preprocedural examination Z01.818 ; Family history of colon cancer Z80.0 ; Encounter for screening for malignant neoplasm of colon Z12.11 and Serrated polyp of colon K63.5 [facility] [address] [place] [phone] 09/25/2024 Bryce Bower [facility] [address] [place] [phone] 01/24/2025 Bryce Bower Assessments Encounter Date Diagnosis (ICD Code) Assessment [...] Insured Coverage Start Date Coverage End Date [facility] [address] [place], [place] [id number] KUSHAL SUAREZ Self - patient is the insured Medical (General) History Medical History History ICD Code Tubular adenoma removed in 1 995- F/U colonoscopies were neg. in 1996, 2005, 07/2010 Denies [place],DM,CVA,Lung disease,renal dise ase Colonoscopy in 01/2016- 1 tubular adenoma and 1 hyperplastic polyp removed High cholesterol Screening colonoscopy in Apr with removal of a small tubular adenoma and an approximately 1 cm sessile serrated polyp from the ascending colon Surgical History Surgery Date(Month/Year)
--- OUTSIDE RECORDS SUMMARY | 2025-06-09 08:07 | XMS_ITS | Encounter Summary ---
Author Organization [facility] Address [address] [place] [address] Care Team Providers Care Impregnator Operator Name Role Phone Jose G Schaefer MD Primary Care Provider Encounter Details Date Type Department Care Team (Late st Contact Info) Description 02/26/2025 Lab Requisition [facility] Lab [address] [facility] [place] [address] Clint Kline MD [address] [place] [address] Elevated prostate specific antigen (PSA) [...] (02/26/2025) Final Diagnosis A. Prostate, Left Mid Harvey Biopsy: - Benign prostatic tissue. B. Prostate, Left Lat Harvey Biopsy: - Benign prostatic tissue. C. Prostate, Left Mid Mid Biopsy: - Benign prostatic tissue. D. Prostate, Left Lat Harvey Biopsy: - Benign prostatic tissue. E. Prostate, Left Mid Base Biopsy: - Benign prostatic tissue. F. Prostate, Left Lat Base Biopsy: - Benign prostatic tissue. G. Prostate, Left Anterior Transition Zone at Mid-gland to Harvey Biopsy: - Prostatic acinar adenocarcinoma (conventional type), grade group 2 (Huntington score 3+4=7). - Percentage pattern 4: 10%. - Tumor continuously involves 55% of 1 of 1 tissue core. H. Prostate, Right Mid Harvey Biopsy: - Benign prostatic tissue. I. Prostate, Right Lat Harvey Biopsy: - Benign prostatic tissue. J. Prostate, Right Mid Mid Biopsy: - Benign prostatic tissue. K. Prostate, Right Lat Mid Biopsy: - Benign prostatic tissue. L. Prostate, Right Mid Base Biopsy: - Benign prostatic tissue. M. Prostate, Right Lat Base Biopsy: - Benign prostatic tissue. 02/28/2025 4:[address] [facility] Clinical Information Elevated PSA PSA: 3.37 (11/08/24) [id number] 02/28/2025 4:23 PM [facility] Gross Description A. Prostate, Left Mid Harvey Biopsy: Received, properly labeled, are two H and E stained slides and two unstained slides. B. Prostate, Left Lat Harvey Biopsy: Received, properly labeled, are two H and E stained slides and two unstained slides. C. Prostate, Left Mid Mid Biopsy: Received, properly labeled, are two H and E stained slides and two unstained slides. D. Prostate, Left Lat Harvey Biopsy: Received, properly labeled, are two H [...] Left Anterior Transition Zone at Mid-gland to Harvey Biopsy: Received, properly labeled, are two H and E stained slides and two unstained slides. H. Prostate, Right Mid Harvey Biopsy: Received, properly labeled, are two H and E stained slides and two unstained slides. I. Prostate, Right Lat Harvey Biopsy: Received, properly labeled, are two H [...] paraffin embedded. Technical pathology services provided by [facility] at [address] [place] [address] [address], [place] [address] (CLIA #[id number]/Cassy Tran MD, Sole Leveler Machine) 02/28/2025 4:[address] [facility] [...] PATHOLOGY ORDERABLES Final Result [facility]IA DEL CARMEN [facility] [address] [place] [address], documented in this encounter Visit Diagnoses Diagnosis Elevated prostate specific antigen (PSA) documented in this encounter Care Teams Impregnator Operator Relationship Specialty Start Date End Date Jose G Schaefer MD [address] [place] [address] Drive [address] [place] [address] PCP - General Internal Medicine 02/26/25 documented as of this encounter
--- OUTSIDE RECORDS SUMMARY | 2025-06-09 08:08 | XMS_ITS | Patient Health Record ---
Author Organization Jose G Schaefer MD Address [address] [place], [place] [phone] Care Team Providers Care Print Designer Name Role Phone Jose G Schaefer Primary Care Provider [phone] Allergies Allergen (clinical drug ingredient) Drug/Non Drug Allergy documented on EMR Reaction Allergy Type Onset Date Status raw eggs (uncoded) hives Allergy A ctive lobster, shellfish (uncoded) hives Allergy Active Nuts (uncoded) anaphylaxis Allergy Act ana Results Component Value Reference Range Notes Complete Blood Count Auto Di ff Reviewed date:07/05/2024 04:21:41 PM Interpretation: Performing Lab:[facility], [address] [place] [phone] Notes/Report: White Blood Count 7.4 4.8-10.8 X10*3/uL [...] NRBC Abs Auto 0.000 0.0-0.012 X10*3/uL Comprehensive Sellers. Panel Fa st Reviewed date:07/05/2024 04:22:48 PM Interpretation: Performing Lab:[facility], [address] [place] [phone] Notes/Report: Sodium 142 135-145 mmol/L Potassium 3.8 [...] Panel Reviewed date:07/05/2024 04:18:22 PM Interpretation: Performing Lab:[address] [phone] Notes/Report: Triglycerides 125 <150 mg/dL Desirable Triglyceride: [...] date:07/22/2024 06:02:50 PM Interpretation:see back 07-22-24 Performing Lab:[address] [address] Notes/Report: PSA,Total (Free>4and<10) 3.37 0.00-4.00 ng/mL A [...] t Reviewed date:07/05/2024 04:21:58 PM Interpretation: Performing Lab:[address] [phone] Notes/Report: Urine, Clean Catch Color Urine Dark Yellow Appearance Urine Cloudy PH 5.5 5.0-9.0 Glucose Urine UA Negative Negative mg/dL Urine Blood Negative Negative Specific Primrose - Urine 1.025 1.005-1.025 Urine Protein 30 (1+) Neg-Trace mg/dL Urine Ketones 40 Negative mg/dL Nitrite Urine Negative Negative Leukocyte Esterase Urine Negative Negative RBC Urine 0-2 0-2 /HPF WBC Urine 0-5 0-5 /HPF Squamous Epithelial Cell Urine 0-2 0-2 /HPF Bacteria Urine None Seen None Seen Hyaline Casts Urine 0-2 0-2 /LPF Lipid Panel Reviewed date:10/28/2024 11:05:37 AM Interpretation: Performing Lab:[facility], [address] [place] [phone] Notes/Report: Triglycerides 118 <150 mg/dL Desirable Triglyceride: [...] Reviewed date:11/07/2024 08:04:03 AM Interpretation:GAYLE 11/05 Performing Lab:[facility], [address] [place] [phone] Notes/Report: PSA,Total (Free>4and<10) 3.54 0.00-4.00 ng/mL A [...] Panel Reviewed date:07/22/2024 05:45:39 PM Interpretation: Performing Lab:[facility], [address] [place] [phone] Notes/Report: Triglycerides 118 <150 mg/dL Desirable Triglyceride: [...] Pathology Reviewed date:01/28/2025 05:14:48 PM Interpretation: Performing Lab:[facility], [address] [place] [phone] Notes/Report: ------ Name: Kushal Martinez Age/Sex: 59/M : 1965 Unit#: [id number] Attend Dr: Bryce Bower MD Re01/24/25 Status : [facility] Location: [facility] Disch: ------ SPEC : [id number] RECD : 01/24/25 STATUS: BLU LEW NUM: [id number] BAYLEE: 01/24/25 [facility] DR: Bryce Bower MD ENTERED: [...] copic examination, 2 pieces in cassette C. ([facility]) CONTINUED ON NEXT PAGE ------ Name: Kushal Martinez Age/Sex: 59/M : 1965 Unit#: [id number] Attend Dr: Bryce Bower MD Re01/24/25 Status : [facility] Location: [facility] Disch: ------ SPEC : [id number] RECD : 01/24/25 STATUS: BLU LEW NUM: [id number] BAYLEE: 01/24/25 [facility] DR: Bryce Bower MD ENTERED: 01/24/25 34 SP TYPE: Surgical OTHR DR: Jose G Schaefer MD ORDERED: HE Stain/9, Gross Micro L4/3 IHC S/NG Disclaimer NOTE: Unless otherwi se stated, all tissue is formalin-fixed and paraffin-embedded. Some or all of the immunohistochemical tests reported herein may have been developed and their performance characteristics determined by [facility]. They have not been cleared [...] [address] [place] [address] [place] [address] Bryce Bower MD [facility] [address] [place] [address] ------ Signed (signature on file) Kaleb Stoner MD 01/27/25 1416 ------ END OF REPORT Complete Blood Count no Diff Reviewed date:04/10/2025 12:29:57 PM Interpretation: Performing Lab:[facility], [address] [place] [phone] Notes/Report: White Blood Count 7.5 4.8-10.8 X10*3/uL [...] INR Reviewed date:04/10/2025 12:29:36 PM Interpretation: Performing Lab:[address] [phone] Notes/Report: Prothrombin Time 11.3 10.9-12.4 [employer] [...] Panel Reviewed date:04/10/2025 12:29:28 PM Interpretation: Performing Lab:[facility], [address] [place] [phone] Notes/Report: Sodium 140 135-145 mmol/L Potassium 4.3 3.3-5.1 mmol/L Chloride 103 96-108 mmol/L Carbon Dioxide 27 22-29 mmol/L Anion Gap 14 12-20 Blood Urea Nitrogen 18 9-16 mg/dL Creatinine 1.23 0.5-1.4 mg/dL Estimated Glomerular Filt Rate > 60 Chronic Kidney Disease: Estimated GFR < 60 mL/min/1.73m2 Severe Kidney Disease: Estimated GFR < 15 mL/min/1.73m2 Glucose Random 109 60-115 mg/dL Calcium 9.8 8.4-10.2 mg/dL Lipid Panel Reviewed date:05/02/2025 12:31:32 PM Interpretation: Performing Lab:[address] [phone] Notes/Report: Triglycerides 158 <150 mg/dL Desirable Triglyceride: less than 150 mg/dL Borderline High Triglyceride 150-199 mg/dL High Triglyceride: 200-499 mg/dL Very High Triglyceride: greater than or equal to 5OO mg/dL Cholesterol 131 <200 mg/dL Desirable Cholesterol: less than 200 mg/dL Borderline High Cholesterol: 200-239 mg/dL High Cholesterol: greater than 239 mg/dL LDL Cholesterol Calculated 67 <100 mg/dL Desirable LDL: less than 100 mg/dL Near Optimal/Above Optimal LDL: 110-129 mg/dL Borderline High LDL: 130-159 mg/dL High LDL: 160-189 mg/dL Very High LDL: greater than or equal to 190 mg/dL HDL Cholesterol 33 >40 mg/dL Desirable HDL: greater than 40 mg/dL Note: This HDL assay may give artificially low results in patients with liver disease. Glucose, Whole Blood Reviewed date:05/20/2025 05:26:07 PM Interpretation: Performing Lab:[facility], [address] [place] [phone] Notes/Report: Glucose, Whole Blood 121 60-115 mg/dL METER # : [id number] Glucose, Whole Blood Reviewed date:05/20/2025 05:25:56 PM Interpretation: Performing Lab:[facility], [address] [place] [phone] Notes/Report: Glucose, Whole Blood 124 60-115 mg/dL METER # : [id number] Glucose, Whole Blood Reviewed date:05/21/2025 02:30:04 PM Interpretation: Performing Lab:[facility], [address] [place] [phone] Notes/Report: Glucose, Whole Blood 97 60-115 mg/dL METER # : [id number] Glucose, Whole Blood Reviewed date:05/21/2025 02:29:36 PM Interpretation: Performing Lab:[facility], [address] [place] [phone] Notes/Report: Glucose, Whole Blood 116 60-115 mg/dL METER # : [id number] Glucose, Whole Blood Reviewed date:05/23/2025 09:36:23 AM Interpretation: Performing Lab:[facility], [address] [place] [phone] Notes/Report: Glucose, Whole Blood 108 60-115 mg/dL METER # : [id number] Reason For Referral Reason PSA Elevation Diagnosis [...] setting him up with an MRI. phone [phone], Megan Constantino 02/04/2025 08:19:16 AM >was told [...] aisha l Orally Once a day Active Metoprolol Succinate ER 50 MG 1 tablet Orally Once a day Active Aspirin 81 81 MG 1 tablet Orally Once a day Active Immunizations Vaccine Route Administration Date Status [...] Risk Notes Problem Malignant tumor of prostate (196728490) Prostate cancer (C61) Active confirmed Problem Atherosclerotic heart disease of [place] coronary artery without angina pectoris (310758261147366) Coronary artery arteriosclerosis (I25.10) Active confirmed Problem Asthma (752591687) Asthma (J45.909) Active conf irmed Problem 437977648 Elevated cholesterol/high density lipoprotein ratio (E78.6) Active confirmed Problem 15002046 Elevated cholesterol (E78.00) Active confirmed Problem History of coronary artery bypass grafting (684400380) History of coronary artery bypass graft x 3 (Z95.1) Active confirmed Vital Signs Blood pressure diastolic 50 mm Hg 05/02/2025 nadia ght is down 9 pounds since 03-28-25 Height 68 in 05/02/2025 weight is down 9 pounds since 03-28-25 Blood pressure systolic 104 mm Hg 05/02/2025 weig ht is down 9 pounds since 03-28-25 Weight 197 lbs 05/02/2025 weight is down 9 pounds since 03-28-25 BMI 29.95 kg/m2 05/02/2025 weight is down 9 pounds since 03-28-25 Encounters Encounter Location Date Provider Diagnosis Jose G Schaefer MD [address] [place] [id number] 07/05/2024 Jose G Schaefer Blood tests for rout ine general physical examination Z00.00 Jose G Schaefer MD [address] [place] [id number] 10/28/2024 Jose G Schaefer Elevated cholesterol E78.00 and PSA elevation R97.20 Jose G Schaefer MD [address] [place] [id number] 07/22/2024 Jose G Schaefer Elevated cholesterol E78.00 ; Annual physical exam Z00.00 ; PSA elevation R97.20 ; Colon cancer screening Z12.11 and Depression screening Z13.31 Jose G Schaefer MD [address] [place] [id number] 11/05/2024 Jose G Schaefer Elevated PSA R97.20 Jose G Schaefer MD [address] [place] [id number] 03/25/2025 Jose G Schaefer Asthma J45.909 and Prostate cancer C61 Jose G Schaefer MD [address] [place] [id number] 03/28/2025 Jose G Schaefer Shortness of breath R06.02 and Prostate cancer C61 Jose G Schaefer MD [address] [place] [address] [id number] 05/02/2025 Jose G Schaefer Coronary artery arteriosclerosis I25.10 and History of coronary artery bypass graft x 3 Z95.1 Jose G Schaefer MD [address] [place] [id number] 03/28/2025 Jose G Schaefer MD [address] [place] [address] [id number] 12/27/2024 Jose G Schaefer MD [address] [place] [id number] 03/11/2025 Jose G Schaefer MD [address] [place] [id number] 04/10/2025 Jose G Schaefer MD [address] [place] [id number] 04/24/2025 Jose G Schaefer Assessments Encounter Date [...] used his inhaler. / order faxed to [facility] dept 05/02/2025 Coronary artery arteriosclerosis (ICD-10 - I25.10) [...] skiing. seems unlikely this year but maybe 10/28/2024 PSA elevation (ICD-10 - R97.20) 07/22/2024 PSA elevation (ICD-10 - R97.20) will continue to monitor, labs pending 03/28/2025 Prostate cancer (ICD-10 - C61) we discussed the outcome of his visit with the urologist and i have suggested a vist to the [facility] to gain a better understanding of the options 07/22/2024 Colon cancer screening (ICD-10 - Z12.11) guaiac negative 07/22/2024 Depression screening (ICD-10 - Z13.31) negative screen Plan Of Treatment Pending Test Test Name Order Date Electrocardiogram (EKG) 08/23/2019 CA stress test 03/28/2025 Next Appt Details Provider Name:Jose G Ximena francisr, 07/15/2025 07:15:00 AM, [address] [place] [address], [address], [place], [place], [phone], Provider Name:Jose G francisr, 07/24/2025 02:30:00 PM, [address] [place] [address], [address], [place], [place], [phone], Insurance Providers Payer Name Payer Address Payer Phone Subscriber Number Group Number Insured Name Patient Relationship to Insured Coverage Start Date Coverage End Date [employer] [address] [address] [place] [address] [id number] Kushal Martinez Self - patient is the insured
== END ==
LOC: HO.CARD 08:03
PROVIDERS: PCP Internal Medicine; Visit Provider Internal Medicine Cardiovascular Disease
DX: I25.10 Atherosclerotic heart disease of native coronary artery without angina pectoris (principal); I97.89 Other postprocedural complications and disorders of the circulatory system, not elsewhere classified; I48.91 Unspecified atrial fibrillation; Z95.1 Presence of aortocoronary bypass graft
CPT/HCPCS: 93225; 93306

== ENCOUNTER → 2025-06-09 08:06 | Outpatient (BNV) | payer OTHER, SELFPAY | PROVIDERS: PCP Internal Medicine; Visit Provider Internal Medicine | DX: I31.39 Other pericardial effusion (noninflammatory) (principal); Z95.1 Presence of aortocoronary bypass graft | CPT/HCPCS: 93306 ==

== ENCOUNTER 2025-07-15 11:28 | Outpatient (REF) | payer OTHER, SELFPAY ==
--- OUTSIDE RECORDS SUMMARY | 2024-12-27 03:48 | XMS_ITS ---
Author Organization Jose G Schaefer MD Address [address] [place] [phone] Care Team Providers Care Field Project Manager Name Role Phone Jose G Schaefer Primary Care Provider REASON FOR VISIT appt with Urology Encounters Encounter Location Date Provider Diagnosis Jose G Schaefer MD [address] [place] [phone] 12/27/2024 Jose G Schaefer Plan Of Treatment Next Appt Details Provider Name:Jose G Cooper ier, 07/24/2025 02:30:00 PM, [address], Suite [facility], [place], [place], [phone], Progress Notes * Kushal MARTINEZDOB:1965 (59 yo M)Acc No.[id number]:12/27/2024 Patient: Justa Kushal ROCHA :1965 A ge:59 Y S ex:Male Address: [place], [address] * true * Date: Generated for Printi ng/Faxing/eTransmitting on: 03:31 PM EST
--- OUTSIDE RECORDS SUMMARY | 2025-01-24 02:30 | XMS_ITS ---
Author Organization [facility] Address [address] [place] [phone] Care Team Providers Care Communications Department Chair Name Role Phone Olive ELIZABETH, Jose G Primary Care Provider Bryce Moreau [phone] REASON FOR VISIT family hx of colon cancer,hx of adenomatous polyp, screening for malignant neoplasm of the colon, serrated polyp of the colon,preprocedural exam Encounters Encounter Location Date Provider Diagnosis [facility] [place] Out[place] [address] [place] [phone] 01/24/2025 Bryce Bower Plan Of Treatment No Information Progress Notes * EZEKIEL SUAREZ MDOB:[birth year] (60 yo M)Acc No.[id number]:01/24/2025 COLON WITH MAC Patient: Justa ROCHAEZEKIEL Provider: Yessica Bower MD :1965 A ge:59 Y S ex:Male Date:01/24/2025 [facility] Pcp:Jose G Schaefer MD Subjective: * Chief [...] 0 01/24/2025 Generated for Latesha gonzalez/Vikram/eTransmitting on: 1 03:32 PM EST
--- OUTSIDE RECORDS SUMMARY | 2025-03-11 10:13 | XMS_ITS ---
Author Organization Jose G Schaefer MD Address [address] [place] [phone] Care Team Providers Care Mediation Commissioner Name Role Phone Jose G Schaefer Primary Care Provider [phone] REASON FOR VISIT refill Encounters Encounter Location Date Provider Diagnosis Jose G Schaefer MD [address] [place], [place] [phone] 03/11/2025 Jose G Schaefer Plan Of Treatment Next Appt Details Provider Name:Jose G Cooper ier, 07/24/2025 02:30:00 PM, [address], Suite [facility], [place], [place], [phone], Progress Notes * Kushal MARTINEZDOB:1965 (59 yo M)Acc No.[id number]:03/11/2025 Patient: Justa Kushal ROCHA :1965 A ge:59 Y S ex:Male Address: [place], [address] * true * Date: Generated for Printi ng/Faxing/eTransmitting on: 03:31 PM EST
--- OUTSIDE RECORDS SUMMARY | 2025-03-25 10:00 | XMS_ITS ---
Author Organization Jose G Schaefer MD Address [address] [place], [place] [phone] Care Team Providers Care Inspector Casing Name Role Phone Jose G Schaefer Primary Care Provider Allergies Allergen (clinical drug ingredient) Drug/Non Drug Allergy documented on EMR Reaction Allergy Type Onset Date Status raw eggs (uncoded) hives Allergy A ctive lobster, shellfish (uncoded) hives Allergy Active Nuts (uncoded) anaphylaxis Allergy Act ana REASON FOR VISIT discuss inhaler medication Medications Medication SIG (Take, Route, Frequency, Duration) Notes Start Date End Date Status Atorvastatin Calcium 20 MG TAKE 1 TABLET BY MOUTH EVERY DAY for 90 Active Albuterol Sulfate HFA 108 (90 Base) MCG/ACT 1 puff as needed Inhalation every 4 hrs for 30 days 03/25/2025 Active Problems Problem Type SNOMED Code ICD Code Onset Dates Problem Status W/U Status Risk Notes Problem Asthma (345973573) Asthma (J45.909) Active confirmed Problem Malignant tumor of prostate (324668841) Prostate cancer (C61) Active confirmed Vital Signs Blood pressure systolic 172 mm Hg 03/25/20 25 Blood pressure diastolic 84 mm Hg 025 Height 68 in 03/25/2025 Weight 206 lbs 03/25/2025 BMI 31.32 kg/m2 03/25/2025 weight is up 11 pounds since 11-05-24 Encounters Encounter Location Date Provider Diagnosis Jose G Schaefer MD [address] [place], [place] [phone] 03/25/2025 Jose G Schaefer Asthma J45.909 and Prostate cancer C61 Assessments Encounter Date Diagnosis (ICD Code) Assessment Notes Treatment Notes Treatment Clinical Notes Section Notes 03/25/2025 Asthma (ICD-10 - J45.909) 03/25/2025 Prostate cancer (ICD-10 - C61) Plan Of Treatment Medication Medication Name Sig Start Date Stop Date Notes Albuterol Sulfate HFA 108 (9 0 Base) MCG/ACT 1 puff as needed Inhalation every 4 hrs for 30 days 03/25/2025 Next Appt Details Follow Up: 2 - 3 Days, Reaso n: Provider Name:Jose G Cooper ier, 07/24/2025 02:30:00 PM, [address], [address], [place], [place], [phone], Progress Notes * Kushal MARTINEZDOB:1965 (59 yo M)Acc No.[id number]:03/25/2025 Progress Notes Patient: Justa PRAKASHKushal JOSÉ Provider: Duncan Schaefer MD :1965 A ge:59 Y S ex:Male Date:03/25/2025 Address:[address] [place], [place] [phone] Subjective: * Chief Complaints: * D iscuss inhaler medication * HPI: S ymptom(s): patient is a 59 yo male here to discuss inhaler medication/ here for follow up. * ROS: G eneral/Constitutional: Denies C hills. D enies F atigue. D enies F ever. D enies H eadache. E NT: Denies S ore throat. R espiratory: Patient complaining of f eels like he cannot take a deep breath/ had asthma as a kid. just gets tight when he takes a deep breath. getting winded in walking. has a little sqeak. D enies C ough. D enies S hortness of breath at rest. D enies S hortness of breath with exertion. C ardiovascular: Patient denies n o chest pain. G astrointestinal: Denies D iarrhea. D enies [...] Objective: * Vitals: H t: 68, Wt: 206, BMI:31.32, BP:172/84, Repeat BP:144/88, Wt-k.44. weight is up 11 pounds since 11-05-24. * Examination: G eneral Examination: GENERAL APPEARANCE: a lert, well hydrated, in no distress.? SKIN: g ood turgor. HEART: r egular rate and rhythm, no murmurs, rubs, gallops.? LUNGS: n o wheezes, rales, rhonchi, good air movement, clear to auscultation bilaterally/ slight wheeze. Assessment: * Assessment: 1. A [facility] - J45.909 (Primary) 2 . P rostate cancer - C61 Plan: * Treatment: * Procedure Codes: * Follow Up: 2 - 3 Days * * Sign off status: Completed true * Provider: Duncan Schaefer MD Date: 0 03/25/2025 Generated for Latesha gonzalez/Vikram/Karthiksmitting on: 03:31 PM EST History and Physical Notes * HPI (History of Present Illness) Category Sub-Category Detail Notes Category Not es Symptom(s) patient is a 59 yo male here to discuss inhaler medication/ here for follow up. Examination Category Sub-Category Detail Notes Category Not es General Examination GENERAL APPEARANCE: alert, w ell hydrated, in no distress HEART: regular rate and rhy thm, no murmurs, rubs, gallops LUNGS: no wheezes, rales, r honchi, good air movement, clear to auscultation bilaterally/ slight wheeze SKIN: good turgor
--- OUTSIDE RECORDS SUMMARY | 2025-03-28 09:00 | XMS_ITS ---
Author Organization Jose G Schaefer MD Address [address] [place] [phone] Care Team Providers Care Credit Front Office Developer Name Role Phone Jose G Schaefer Primary [...] G Schaefer MD [address] [place] [phone] 03/28/2025 Jose G Schaefer Shortness of breath R06.02 and Prostate cancer C61 Assessments Encounter Date Diagnosis (ICD Code) Assessment Notes Treatment Notes Treatment Clinical Notes Section Notes 03/28/2025 Shortness of breath (ICD-10 - R06.02) seems mostly likely lung since it is there all the time and heard a little wheeze when he used his inhaler. / order faxed to [facility] dept 03/28/2025 Prostate cancer (ICD-10 - C61) we discussed the outcome of his visit with the urologist and i have suggested a vist to the [facility] to gain a better understanding of the options Plan Of Treatment Treatment Notes Assessment Notes Shortness of breath seems mostly likely lung since it is there all the time and heard a little wheeze when he used his inhaler. / order faxed to [facility] dept Prostate cancer we discussed the out come of his visit with the urologist and i have suggested a vist to the [facility] to gain a better understanding of the options Pending Test Test Name Order Date CA stress test 03/28/2025 Next Appt Details Follow Up: 4 Weeks, Reason: Provider Name:Jose G Cooper ier, 07/24/2025 02:30:00 PM, [address] [place] [address], [address], [place], [phone], Progress Notes * Kushal MARTINEZDOB:1965 (59 yo M)Acc No.[id number]:03/28/2025 Progress Notes Patient: Kushal HUANG Provider: Duncan Schaefer MD :1965 A ge:59 Y S ex:Male Date:03/28/2025 Address:[address] [place], [place] [phone] Subjective: * Chief Complaints: * 3 day [...] i have suggested a vist to the [facility] to gain a better understanding of the options * Procedure Codes: * Follow Up: 4 Weeks * * Sign off status: Completed true * Provider: Duncan Schaefer MD Date: 0 03/28/2025 Generated for Latesha gonzalez/Vikram/Debbieitting on: 03:31 PM EST History and Physical [...]
--- OUTSIDE RECORDS SUMMARY | 2025-03-28 09:32 | XMS_ITS ---
Author Organization Jose G Schaefer MD Address [address] [place] [phone] Care Team Providers Care Cnc Machine Operator Name Role Phone Jose G Schaefer Primary Care Provider [phone] REASON FOR VISIT Urology referral Encounters Encounter Location Date Provider Diagnosis Jose G Schaefer MD [address] [place], [place] [phone] 03/28/2025 Jose G Schaefer Plan Of Treatment Next Appt Details Provider Name:Jose G Cooper ier, 07/24/2025 02:30:00 PM, [address], Suite [facility], [place], [place], [phone], Progress Notes * Kushal MARTINEZDOB:1965 (60 yo M)Acc No.[id number]:03/28/2025 Patient: Justa Kushal ROCHA :1965 A ge:59 Y S ex:Male Address: [address] [place], [address] * * Date:
--- OUTSIDE RECORDS SUMMARY | 2025-04-10 03:30 | XMS_ITS ---
Author Organization Jose G Schaefer MD Address [address] [place] [phone] Care Team Providers Care Corporate Compliance Officer Name Role Phone Jose G Schaefer Primary Care Provider REASON FOR VISIT refusing appt to go over stress test Encounters Encounter Location Date Provider Diagnosis Jose G Schaefer MD [address] [place] [phone] 04/10/2025 Jose G Schaefer Plan Of Treatment Next Appt Details Provider Name:Jose G Cooper ier, 07/24/2025 02:30:00 PM, [address], Suite [facility], [place], [place], [phone], Progress Notes * Kushal MARTINEZDOB:1965 (59 yo M)Acc No.[id number]:04/10/2025 Patient: Justa Kushal ROCHA :1965 A ge:59 Y S ex:Male Address: [place], [address] * true * Date: Generated for Printi ng/Faxing/eTransmitting on: 03:30 PM EST
--- OUTSIDE RECORDS SUMMARY | 2025-04-24 10:02 | XMS_ITS ---
Author Organization Jose G Schaefer MD Address [address] [place] [phone] Care Team Providers Care Part Time Receptionist Name Role Phone Jose G Schaefer Primary Care Provider REASON FOR VISIT Discharge summary rec'd Encounters Encounter Location Date Provider Diagnosis Jose G Schaefer MD [address] [place] [id number] 04/24/2025 Jose G Schaefer Plan Of Treatment Next Appt Details Provider Name:Jose G Cooper ier, 07/24/2025 02:30:00 PM, [address], [address] [place] [address], [phone], Progress Notes * Kushal MARTINEZDOB:1965 (59 yo M)Acc No.[id number]:04/24/2025 Patient: Justa Kushla ROCHA :1965 A ge:59 Y S ex:Male Address: [place], [address] * true * Date: Generated for Printi ng/Faxing/eTransmitting on: 1 03:31 PM EST
--- OUTSIDE RECORDS SUMMARY | 2025-05-02 09:00 | XMS_ITS ---
Author Organization Jose G Schaefer MD Address [address] [place], [place] [address] Care Team Providers Care Concrete Tile Machine Operator Name Role Phone Jose G Schaefer Primary Care Provider Allergies Allergen (clinical drug ingredient) Drug/Non Drug Allergy documented on EMR Reaction Allergy Type Onset Date Status raw eggs (uncoded) hives Allergy A ctive lobster, shellfish (uncoded) hives Allergy Active Nuts (uncoded) anaphylaxis Allergy Act ana REASON FOR VISIT 4 week PH/TCM Medications Medication SIG (Take, Route, Frequency, Duration) Notes Start Date End Date Status Atorvastatin Calcium 80 MG TAKE 1 TABLET BY MOUTH EVERY DAY Orally Once a day for 90 days Active Amiodarone HCl 200 MG 1 tablet Orally On ce a day Active Albuterol Sulfate HFA 108 (90 Base) MCG/ACT 1 puff as needed Inhalation every 4 hrs for 30 days 03/25/2025 Active metFORMIN HCl 500 MG 1 tablet with a aisha l Orally Once a day Active Aspirin 81 81 MG 1 tablet Orally Once a day Active Metoprolol Succinate ER 50 MG 1 tablet Orally Once a day Active Problems Problem Type SNOMED Code ICD Code Onset Dates Problem Status W/U Status Risk Notes Problem Atherosclerotic heart disease of [place] coronary artery without angina pectoris (620735463974599) Coronary artery arteriosclerosis (I25.10) Active confirmed Problem History of coronary artery bypass grafting (734360914) History of coronary artery bypass graft x 3 (Z95.1) Active confirmed Vital Signs Blood pressure systolic 104 mm Hg 05/02/20 25 Blood pressure diastolic 50 mm Hg 025 Height 68 in 05/02/2025 Weight 197 lbs 05/02/2025 BMI 29.95 kg/m2 05/02/2025 weight is down 9 pounds sin e 03-28-25 Encounters Encounter Location Date Provider Diagnosis Jose G Schaefer MD [address] [place], [place] [phone] 05/02/2025 Jose G Schaefer Coronary artery arteriosclerosis I25.10 and History of coronary artery bypass graft x 3 Z95.1 Assessments Encounter Date Diagnosis (ICD Code) Assessment Notes Treatment Notes Treatment Clinical Notes Section Notes 05/02/2025 Coronary artery arteriosclerosis (ICD-10 - I25.10) DOING WELL AFTER HEART SURGERY Total time spent on the date of the encounter is 35 minutes including both face to face time spent and time spent reviewing documentation, pertinent lab data, and counseling the patient. 05/02/2025 History of coronary artery bypass graft x 3 (ICD-10 - Z95.1) is 2 weeks out from the surgery and doing great. is on a lot of meds and will probably be stopping the antiarrythmic soon. is going to see the surgeon again and have suggested that he talk to her about skiing. seems unlikely this year but maybe Plan Of Treatment Treatment Notes Assessment Notes Coronary artery arteriosclerosis DOING W ELL AFTER HEART SURGERY Total time spent on the date of the encounter is 35 minutes including both face to face time spent and time spent reviewing documentation, pertinent lab data, and counseling the patient. History of coronary artery bypass graft x 3 is 2 weeks out from the surgery and doing great. is on a lot of meds and will probably be stopping the antiarrythmic soon. is going to see the surgeon again and have suggested that he talk to her about skiing. seems unlikely this year but maybe Next Appt Details Follow Up: 2 Months, Reason: Provider Name:Jose G hilton, 07/24/2025 02:30:00 PM, [address], [address], [place], [place], [phone], Progress Notes * Donn MARTINEZ:1965 (59 yo M)Acc No.[id number]:05/02/2025 Progress Notes Patient: Kushal HUANG Provider: Duncan Schaefer MD :1965 A ge:59 Y S ex:Male Date:05/02/2025 Address: [address] [facility] Subjective: * Chief Complaints: * 4 week PH/TCM * HPI: S ymptom(s): no is a 59 yo male here for transitinal care management visit/ following recent hositalization. discharge summary has been reviewed and medications recocnilled. had bypass surgery 2 weeks gets tired. is doing well. not having any chest pain. able to take better breaths already. saw his surgeon today and she authorized him to drive. had a titanium plate in his chest instead of wires. * ROS: G eneral/Constitutional: Denies C hills. D enies F atigue. D enies F ever. D enies H eadache. E NT: Denies S ore throat. R espiratory: Denies C ough. D enies S hortness of breath at rest. D enies S hortness of breath with exertion. C ardiovascular: Denies C hest pain at rest. D enies C hest pain with exertion. D enies D izziness. D enies P alpitations. D enies S hortness of breath. G astrointestinal: Denies D iarrhea. D enies N ausea. * Medical History: * Surgical History: * Hospitalization/Major Diagno stic Procedure: * Medications: T akingMetoprolol Succinate ER 50 MG Tablet Extended Release 24 Hour 1 tablet Orally Once a day metFORMIN HCl 500 MG Tablet 1 tablet with a meal Orally Once a day Aspirin 81 81 MG Tablet Delayed Release 1 tablet Orally Once a day Amiodarone HCl 200 MG Tablet 1 tablet Orally Once a day Atorvastatin Calcium 80 MG Tablet TAKE 1 TABLET BY MOUTH EVERY DAY Orally Once a day Albuterol Sulfate HFA 108 (90 Base) MCG/ACT Aerosol Solution 1 puff as needed Inhalation every 4 hrs Medication List reviewed and reconciled with the patientTaking Metoprolol Succinate ER 50 MG Tablet Extended Release 24 Hour 1 tablet Orally Once a day Taking metFORMIN HCl 500 MG Tablet 1 tablet with a meal Orally Once a day Taking Aspirin 81 81 MG Tablet Delayed Release 1 tablet Orally Once a day Taking Amiodarone HCl 200 MG Tablet 1 tablet Orally Once a day Taking Atorvastatin Calcium 80 MG Tablet TAKE 1 TABLET BY MOUTH EVERY DAY Orally Once a day Taking Albuterol Sulfate HFA 108 (90 Base) MCG/ACT Aerosol Solution 1 puff as needed Inhalation every 4 hrs Medication List reviewed and reconciled with the patient * Allergies: N uts: anaphylaxislobster, shellfish: hivesraw eggs: hivesyes[Allergies Verified] Objective: * Vitals: H t: 68, Wt: 197, BMI:29.95, BP:104/50, Wt-k.36. weight is down 9 pounds since 03-28-25. * Examination: G eneral Examination: GENERAL APPEARANCE: a lert, well hydrated, in no distress.? HEAD: n ormocephalic. SKIN: g ood turgor/ wounds are healing great with no sign of infection. . HEART: r egular rate and rhythm, no murmurs, rubs, gallops.? LUNGS: n o wheezes, rales, rhonchi, good air movement, clear to auscultation bilaterally. Assessment: * Assessment: 1. C oronary artery arteriosclerosis - I25.10 (Primary) 2 . H istory of coronary artery bypass graft x 3 - Z95.1 Plan: * Treatment: 2. H istory of coronary artery bypass graft x 3 Notes: is 2 weeks out from the surgery and doing great. is on a lot of meds and will probably be stopping the antiarrythmic soon. is going to see the surgeon again and have suggested that he talk to her about skiing. seems unlikely this year but maybe * Procedure Codes: * Follow Up: 2 Months * * Sign off status: Completed true * Provider: Duncan Schaefer MD Date: Generated for Latesha gonzalez/Vikram/Debbieitting on: 03:30 PM EST History and Physical Notes * HPI (History of Present Illness) Category Sub-Category Detail Notes Category Not es Symptom(s) patiet is a 59 yo male here for transitinal care management visit/ following recent hositalization. discharge summary has been reviewed and medications recocnilled. had bypass surgery 2 weeks gets tired. is doing well. not having any chest pain. able to take better breaths already. saw his surgeon today and she authorized him to drive. had a titanium plate in his chest instead of wires. Examination Category Sub-Category Detail Notes Category Not es General Examination GENERAL APPEARANCE: alert, w ell hydrated, in no distress HEAD: normocephalic HEART: regular rate and rhy thm, no murmurs, rubs, gallops LUNGS: no wheezes, rales, r honchi, good air movement, clear to auscultation bilaterally SKIN: good turgor/ wounds are healing great with no sign of infection.
--- OUTSIDE RECORDS SUMMARY | 2025-06-26 04:56 | XMS_ITS ---
Author Organization Jose G Schaefer MD Address [address] [place] [phone] Care Team Providers Care Lifter Name Role Phone Jose G Schaefer Primary Care Provider [phone] REASON FOR VISIT refill Medications Medication SIG (Take, Route, Fr equency, Duration) Notes Start Date End Date Status metFORMIN HCl 500 MG 2 tablet with a aisha l Orally twice a day for 90 days Active Encounters Encounter Location Date Provider Diagnosis Jose G Schaefer MD [address] [place] [id number] 06/26/2025 Jose G Schaefer Plan Of Treatment Medication Medication Name Sig Start Date Stop Date Notes metFORMIN HCl 500 MG 2 tablet with a aisha l Orally twice a day for 90 days Next Appt Details Provider Name:Jose G Cooper ier, 07/24/2025 02:30:00 PM, [address], Suite [facility], [place], [place], [phone], Progress Notes * Kushal MARTINEZDOB:1965 (60 yo M)Acc No.[id number]:06/26/2025 Patient: Kushal HUANG :1965 A ge:60 Y S ex:Male Address: [place], [address] * Refills Refill metFORMIN HCl Tablet, 500 MG, Orally, 360 Tablet, 2 tablet with a meal, twice a day, 90 days * true * Date: Generated for Latesha gonzalez/Vikram/Lorene on: 03:30 PM EST
--- OUTSIDE RECORDS SUMMARY | 2025-07-09 22:45 | XMS_ITS | Encounter Summary ---
Author Organization [facility] Address [address] [place] [address] Care Team Providers Care Staff Cytotechnologist Name Role Phone [employer] [facility] Primary Care Provider Reason for Visit * Reason Comments Allergic Reaction Encounter Details Date Type Department Care Team (Late st Contact Info) Description 07/09/2025 10:45 PM EST - 07/10/2025 3:18 AM EST Emergency [facility] Department [address] [place] [address] Roland Virk MD [address] [place] [address] Anaphylaxis, initial encounter (Primary Dx); Allergic reaction, initial encounter Discharge Disposition: Home or Self Care (01) Social History Tobacco Use Types Packs/Day Years Used Date Smoking Tobacco: Never Assessed Sex and Gender Information Value Date Recorded Sex Assigned at Male 07/10/2025 12:32 AM EST Legal Sex Male 10:40 PM EST Gender Identity Not on file Sexual Orientation Not on file documented as of this encounter Last Filed Vital Signs Vital Sign Reading Time Taken Comments Blood Pressure 132/67 07/10/2025 2:30 AM EST Pulse 70 07/10/2025 2:45 AM EST Temperature 36.6 C (97.8 F) 07/09/2025 10:58 PM EST Respiratory Rate 15 07/10/2025 2:45 AM EST Oxygen Saturation 95% 07/10/2025 2:45 AM EST Inhaled Oxygen Concentration - - Weight 54.4 kg (120 lb) 07/09/2025 10:58 PM EST Height - - Body Mass Index - - documented in this encounter Functional Status * Vital Signs Question Answer Date of Assessment Author Devanp 97.8 07/09/2025 10:58 PM Anita Nunez RN Temp src Oral 07/09/2025 10:58 PM Anita Nunez RN Heart Rate Source Monitor 07/09/2025 10:58 PM Anita Haskins RN BP Location Right arm 07/09/2025 10:58 PM Anita Nunez RN Patient Position Sitting 07/09/2025 10:58 PM Anita Haskins RN * Oxygen Therapy Question Answer Date of Assessment Author SpO2 95 07/10/2025 2:45 AM Anita Ashby RN Pulse Oximetry Type Continuous 07/09/2025 10:58 PM Anita Spencer RN Patient Activity At rest 07/09/2025 10:58 PM Anita Haskins RN Oxygen Therapy None (Room air) 07/09/2025 10:58 PM Anita Haskins RN * Savage Fall Risk Question Answer Date of Assessment Author History of Falling 0 07/09/2025 11:35 PM Anita Law RN Secondary Diagnosis 15 07/09/2025 11:35 PM Anita Spencer RN Ambulatory Aids 0 07/09/2025 11:35 PM Anita Batista RN Intravenous Therapy/Heparin/Saline Lock 20 07/09/2025 11:35 PM Anita Quintanilla RN Gait/Transferring 0 07/09/2025 11:35 PM Anita Haskins RN Mental Status 0 07/09/2025 11:35 PM Anita Barrera RN Savage Fall Risk Score 35 07/09/2025 11:35 PM Anita Haksins RN * Height and Weight Question Answer Date of Assessment Author Weight 1920 07/09/2025 10:58 PM Anita Nunez RN Weight Method Stated 07/09/2025 10:58 PM Anita Barrera RN * Respiratory WDL Question Answer Date of Assessment Author Respiratory WDL WDL 07/09/2025 11:35 PM Anita Batista RN * Nose WDL Question Answer Date of Assessment Author Nose WDL WDL 07/09/2025 11:35 PM Anita Nunez RN * HEENT (Adult) Question Answer Date of Assessment Author Head/Face WDL WDL 07/09/2025 11:35 PM Anita Barrera RN * Eye WDL Question Answer Date of Assessment Author Eye WDL WDL 07/09/2025 11:35 PM Anita Nunez RN * Mouth/Teeth/Throat WDL Question Answer Date of Assessment Author Oral Mucosa Symptoms swelling 07/09/2025 11:35 PM Anita Haskins RN Tongue Signs/Symptoms swelling 07/09/2025 11:35 PM Anita Haskins RN Mouth/Teeth WDL tongue 07/09/2025 11:35 PM Anita Batista RN Lip Symptoms swelling 07/09/2025 11:35 PM Anita Nunez RN * Ear WDL Question Answer Date of Assessment Author Ear WDL WD 07/09/2025 11:35 PM Anita Nunez RN * Disability Question Answer Date of Assessment Author Cognitive/Neuro/Behavioral WDL [facility] 07/09/2025 11:00 PM Anita Haskins RN * Peripheral/Neurovascular WDL Question Answer Date of Assessment Author Peripheral Neuro Vascular WDL [facility] 07/09/2025 11:00 PM Anita Haskins RN * Respiratory Question Answer Date of Assessment Author Airway WDL WD 07/09/2025 11:35 PM Anita Nunez RN * Violence Risk Question Answer Date of Assessment Author Feels Like Hurting Others no 07/09/2025 11:0 0 PM Anita Haskins RN Previous Attempt to Harm Others no 11:00 PM Anita Haskins RN * Neck WDL Question Answer Date of Assessment Author Neck WDL WD 07/09/2025 11:35 PM Anita Nunez RN * Suicide Risk Screen Question Answer Date of Assessment Author Over the Past 2 Weeks, Have You Malott Down, Depressed or Hopeless? No 07/09/2025 11:00 PM Isamar Haskins RN Over the past 2 weeks, have you had thoughts of killing yourself? No 07/09/2025 11:00 PM Isamar Haskins RN Have you ever attempted to k ill yourself? No 07/09/2025 11:00 PM Isamar Haskins RN * Assessments and Treatments Question Answer Date of Assessment Author Assessments/Treatments Aerosol Therapy 07/09/2025 10:5 0 PM Jenna Foster RRT * Abuse Screen Question Answer Date of Assessment Author Are or have you been threate federica or abused physically, emotionally, or sexually? no 07/09/2025 11:00 PM Anita Covington i, RN * Departure Condition Question Answer Date of Assessment Author Departure Condition Good 07/10/2025 3:17 AM Anita Law RN Mobility at Departure Ambulatory 07/10/2025 3:17 AM Anita Haskins RN Patient Teaching Discharge instructio ns reviewed;Follow-up care reviewed;Patient verbalized understanding 07/10/2025 3:17 AM Anita Haskins RN Departure Mode With family 07/10/2025 3:17 AM Anita Barrera RN * Vital Signs Question Answer Date of Assessment Author BP 132/67 07/10/2025 2:30 AM Anita Ashby RN Pulse 70 07/10/2025 2:45 AM Anita Nunez RN Resp 15 07/10/2025 2:45 AM Anita Ashby RN * Circulation Question Answer Date of Assessment Author Cardiac WDL WDL 07/09/2025 11:00 PM Anita Nunez RN * SOFA Question Answer Date of Assessment Author SOFA Score (Do Not Edit) 0 07/10/2025 3:05 AM Nancy Jackman * Vital Signs Question Answer Date of Assessment Author Temp 97.8 07/09/2025 10:58 PM Anita Nunez RN * Oxygen Therapy Question Answer Date of Assessment Author SpO2 95 07/10/2025 2:45 AM Anita Ashby RN Pulse Oximetry Type Continuous 07/09/2025 10:58 PM E Anita Neri RN Patient Activity At rest 07/09/2025 10:58 PM Anita Haskins RN Oxygen Therapy None (Room air) 07/09/2025 10:58 PM Anita Haskins RN * Savage Fall Risk Question Answer Date of Assessment Author History of Falling 0 07/09/2025 11:35 PM Anita Law RN Secondary Diagnosis 15 07/09/2025 11:35 PM Anita Spencer RN Ambulatory Aids 0 07/09/2025 11:35 PM Anita Batista RN Intravenous Therapy/Heparin/Saline Lock 20 07/09/2025 11:35 PM Anita Quintanilla RN Gait/Transferring 0 07/09/2025 11:35 PM Anita Haskins RN Mental Status 0 07/09/2025 11:35 PM Anita Barrera RN Savage Fall Risk Score 35 07/09/2025 11:35 PM Anita Haskins RN * Height and Weight Question Answer Date of Assessment Author Weight 1920 07/09/2025 10:58 PM Anita Nunez RN * Nose WDL Question Answer Date of Assessment Author Nose WDL WDL 07/09/2025 11:35 PM Anita Nunez RN * HEENT (Adult) Question Answer Date of Assessment Author Head/Face WDL WDL 07/09/2025 11:35 PM Anita Barrera RN * Eye WDL Question Answer Date of Assessment Author Eye WDL WDL 07/09/2025 11:35 PM Anita Nunez RN * Mouth/Teeth/Throat WDL Question Answer Date of Assessment Author Oral Mucosa Symptoms swelling 07/09/2025 11:35 PM Anita Haskins RN Tongue Signs/Symptoms swelling 07/09/2025 11:35 PM Anita Haskins RN Mouth/Teeth WDL tongue 07/09/2025 11:35 PM Anita Batista RN Lip Symptoms swelling 07/09/2025 11:35 PM Anita Nunez RN * Ear WDL Question Answer Date of Assessment Author Ear WDL WDL 07/09/2025 11:35 PM Anita Nunez RN * Disability Question Answer Date of Assessment Author Cognitive/Neuro/Behavioral WDL WDL 07/09/2025 11:00 PM Anita Haskins RN * Respiratory Question Answer Date of Assessment Author Airway WDL WDL 07/09/2025 11:35 PM Anita Nunez RN * Violence Risk Question Answer Date of Assessment Author Feels Like Hurting Others no 07/09/2025 11:0 0 PM Anita Haskins RN Previous Attempt to Harm Others no 11:00 PM Anita Haskins RN * Dynamic Appraisal of Situational Aggression Question Answer Date of Assessment Author Irritability 0 07/09/2025 11:00 PM Anita Nunez RN Impulsivity 0 07/09/2025 11:00 PM Anita Nunez RN Unwillingness to Follow Directions 0 07/09/2025 11:00 PM Isamar Haskins RN Sensitivity to Perceived Provocation 0 07/09/2025 11:00 PM Isamar Haskins RN Easily Angered When Requests are Denied 0 07/09/2025 11:00 PM Isamar Haskins RN Negative Attitudes 0 07/09/2025 11:00 PM Anita Law RN Verbal Threats 0 07/09/2025 11:00 PM Anita Walton RN * Accommodation Requests Question Answer Date of Assessment Author Do you require assistance du ring your visit? no 07/10/2025 12:33 AM Praful Busby i * Circulation Question Answer Date of Assessment Author Cardiac WDL WD 07/09/2025 11:00 PM Anita Nunez RN * DASA Score Answer Date of Assessment Author 0 07/09/2025 11:00 PM Anita Quintanilla RN documented as of this encounter Mental Status * Vital Signs Question Answer Entry Date Author Temp 97.8 07/09/2025 10:58 PM Anita Nunez RN * Oxygen Therapy Question Answer Entry Date Author SpO2 95 07/10/2025 2:45 AM Anita Ashby RN Pulse Oximetry Type Continuous 07/09/2025 10:58 PM Anita Spencer RN Patient Activity At rest 07/09/2025 10:58 PM Anita Haskins RN Oxygen Therapy None (Room air) 07/09/2025 10:58 PM Anita Haskins RN * Disability Question Answer Entry Date Author Cognitive/Neuro/Behavioral WDL [facility] 07/09/2025 11:00 PM Anita Haskins RN * Violence Risk Question Answer Entry Date Author Feels Like Hurting Others no 07/09/2025 11:0 0 PM Anita Haskins RN * DASA Score Range Details Question Answer Entry Date Author Calculated DASA Score: 0 07/09/2025 11:00 P M Anita Haskins RN * Dynamic Appraisal of Situational Aggression Question Answer Entry Date Author Irritability 0 07/09/2025 11:00 PM Anita Nunez RN Impulsivity 0 07/09/2025 11:00 PM Anita Nunez RN Unwillingness to Follow Directions 0 07/09/2025 11:00 PM Isamar Haskins RN Sensitivity to Perceived Provocation 0 07/09/2025 11:00 PM Isamar Haskins RN Easily Angered When Requests are Denied 0 07/09/2025 11:00 PM Isamar Haskins RN Negative Attitudes 0 07/09/2025 11:00 PM Anita Law RN Verbal Threats 0 07/09/2025 11:00 PM EST Anita Lora RN * DASA Score (1-3=low, 4-5=mod, 6-7=high risk) Answer Entry Date Author 0 07/09/2025 11:00 PM EST Anita Montes RN * DASA Score Answer Entry Date Author 0 07/09/2025 11:00 PM EST Anita Montes RN documented in this encounter Discharge Instructions * Discharge Instructions* Roland Virk MD - 07/10/2025 3:08 AM EST You were evaluated in the emergency department for symptoms concerning for a severe type of allergic reaction called anaphylaxis. After a history and physical exam we gave you medications for your symptoms and monitored you in the emergency department for several hours to ensure that you do not have a dangerous recurrence of your symptoms. You did not have any additional findings that would require further workup at this timeor admission to the hospital and you are now being discharged. We are prescribing you a course of steroids for a total of 5 days in addition to the dose you received in the emergency department, in addition to several days worth of as needed antihistamines should you have recurrent mild symptoms such as hives or itching. We have provided you with a prescription for further epinephrine autoinjectors at home called an EpiPen, with instructions attached for how to administer them. Call 911, do not drive yourself to the emergency department, if you experience a concerning recurrence of symptoms consistent with anaphylaxis such as trouble breathing, a sensation of throat tightness, wheezing, chest pain, or any other symptoms that concern you. People will occasionally have a repeat occurrence of the same severe allergic reaction, called a biphasic reaction, even without a reexposure to the same allergen. Therefore over the next day monitor your symptoms closely and return for evaluation if they recur. documented in this encounter Medications at Time of Discharge diphenhydrAMINE (BENADRYL) 25 mg capsule Take 1 capsule (25 mg total) by mouth every 6 hours as needed for itching or hives. 20 capsule 07/10/2025 EPINEPHrine (EPIPEN) 0.3 mg/0.3 mL injection syringe Inject 1 Syringe (0.3 mg total) into the outer thigh muscle as directed as needed for anaphylaxis. 2 each 07/10/2025 predniSONE (DELTASONE) 20 mg tablet Take 3 tablets (60 mg total) by mouth once a day for 4 days. First dose provided in emergency department. 5 doses total. Next dose is due 07/10 evening time before bed. 12 tablet 07/10/2025 documented as of this encounter Plan of Treatment Not on file documented as of this encounter Procedures * Due to [place] law, this organization might not be sharing negative HIV tests. Procedure Name Priority Date/Time Associated Diagnosis Comments ECG 12-LEAD Routine 07/09/2025 10:46 PM EST documented in this encounter Results * Due to [place] law, this organization might not be sharing negative HIV tests. * ECG 12 lead (07/09/2025 10:46 PM EST) Ventricular Rate EKG 66 BPM MUSE EKG Atrial Rate 66 BPM MUSE EKG AK Interval 140 ms MUSE EKG QRS Interval 74 ms MUSE EKG QT Interval 442 ms MUSE EKG QTC Interval 463 ms MUSE EKG P [place] 46 degrees MUSE EKG R [place] -3 degrees MUSE EKG T Wave [place] 41 degrees MUSE EKG 07/09/2025 10:4 6 PM EST 07/11/2025 9:52 AM EST Impressions MUSE EKG - 07/11/2025 9:52 AM EST Normal sinus rhythm Poor R-wave progression Nonspecific T wave abnormality Borderline QT interval No previous ECGs available Confirmed by Maki Will ([id number]) on 07/11/2025 9:52:47 AM Narrative Procedure Note Maki Will MD - 07/11/2025 IMPRESSION: Normal sinus rhythm Poor R-wave progression Nonspecific T wave abnormality Borderline QT interval No previous ECGs available Confirmed by Maki Will ([id number]) on 07/11/2025 9:52:47 AM us Roll Capper Jovan ELIZABETH ECG ORDERABLES Final Resu lt MUSE EKG documented in this encounter Visit Diagnoses Diagnosis Anaphylaxis, initial encounter- Primary Allergic reaction, initial encounter documented in this encounter Administered Medications Inactive Administered Medications - up to 3 most recent administrations Medication Order MAR Action Action Date Dose Rate Site EPINEPHrine (ADRENALIN) 1:1,000 (1 mg/mL) injection 0.3 mg 0.3 mg, intramuscular, Once, On Mon07/09/25 at 2300, 1 dose Given 07/09/2025 10:45 PM EST 0.3 mg Left Deltoid famotidine (PEPCID) injection 20 mg 20 mg, intravenous, Once, On Mon07/09/25 at 2300, 1 dose, IV Push over at least 2 minutes. Given 07/09/2025 10:49 PM EST 20 mg methylPREDNISolone sodium succinate (SOLU-Medrol) injection 125 mg 125 mg, intravenous, Once, On Mon07/09/25 at 2300, 1 dose Given 07/09/2025 10:49 PM EST 125 mg racepinephrine 2.25% nebulizer solution 0.5 mL 0.5 mL, inhalation, Once, On Mon07/09/25 at 2300, 1 dose, Mix with 2.5 mL of sodium chloride 0.9% for nebulization. Given 07/09/2025 10:50 PM EST 0.5 mL documented in this encounter Active and Recently Administered Medications Times are shown in EST. Scheduled Medication Order 07/08/2025 07/09/2025 07/10/2025 EPINEPHrine (ADRENALIN) 1:1,000 (1 mg/mL) injection 0.3 mg (COMPLETED) 0.3 mg, intramuscular, Once, On Mon07/09/25 at 2300, 1 dose 2244 (Given - Provider: Jayesh Morel RN) famotidine (PEPCID) injection 20 mg (COMPLETED) 20 mg, intravenous, Once, On Mon07/09/25 at 2300, 1 dose, IV Push over at least 2 minutes. 2248 (Given - Provider: Jayesh Morel RN) methylPREDNISolone sodium succinate (SOLU-Medrol) injection 125 mg (COMPLETED) 125 mg, intravenous, Once, On Mon07/09/25 at 2300, 1 dose 2248 (Given - Provider: Jayesh Morel RN) racepinephrine 2.25% nebulizer solution 0.5 mL (COMPLETED) 0.5 mL, inhalation, Once, On Mon07/09/25 at 2300, 1 dose, Mix with 2.5 mL of sodium chloride 0.9% for nebulization. 2250 (Given - Provider: Margie Rangel, REHABILITATION TEACHER) documented in this encounter Care Teams Staff Cytotechnologist Relationship Specialty Start Date End Date [facility] [address] [place] [id number] PCP - General 07/09/25 documented as of this encounter
--- OUTSIDE RECORDS SUMMARY | 2025-07-15 02:15 | XMS_ITS ---
Author Organization Jose G Schaefer MD Address [address] [place], [place] [id number] Care Team Providers Care Structural Welder Name Role Phone Jose G Schaefer Primary Care Provider [phone] Results Component Value Reference Range Notes Comprehensive [place]. Panel Fa st (Not yet reviewed by provider) Interpretation: Performing Lab:[facility], [address] [place] [phone] Notes/Report: Sodium 142 135-145 mmol/L Potassium 4.2 3.3-5.1 mmol/L Chloride 109 96-108 mmol/L Carbon Dioxide 27 22-29 mmol/L Anion Gap 10 12-20 Blood Urea Nitrogen 25 9-16 mg/dL Creatinine 1.27 0.5-1.4 mg/dL Estimated Glomerular Filt Rate 58 Chronic Kidney Disease: Estimated GFR < 60 mL/min/1.73m2 Severe Kidney Disease: Estimated GFR < 15 mL/min/1.73m2 Glucose Fasting 120 60-99 mg/dL A fasting glucose from 100-125 mg/dl is considered impaired (pre-diabetes). Calcium 9.7 8.4-10.2 mg/dL Bilirubin Total 0.5 0.0-1.0 mg/dL Aspartate Amino Transferase 27 5-37 U/L Alanine Aminotransferase 34 0-40 U/L Total Protein 7.1 6.5-8.0 g/dL Albumin Level 4.3 3.5-5.0 g/dL Alkaline Phosphatase 78 39-117 U/L UA ClnCatch+Micro w/rflx Cul t (Not yet reviewed by provider) Interpretation: Performing Lab:[address] [phone] Notes/Report: Urine, Clean Catch Color Urine Yellow Appearance Urine Clear PH 5.0 5.0-9.0 Glucose Urine UA Negative Negative mg/dL Urine Blood Negative Negative Specific [place] - Urine 1.020 1.005-1.025 Urine Protein Negative Neg-Trace mg/dL Urine Ketones Trace Negative mg/dL Nitrite Urine Negative Negative Leukocyte Esterase Urine Negative Negative RBC Urine 0-2 0-2 /HPF WBC Urine 0-5 0-5 /HPF Squamous Epithelial Cell Urine 0-2 0-2 /HPF Bacteria Urine None Seen None Seen Hyaline Casts Urine 0-2 0-2 /LPF Complete Blood Count Auto Di ff Reviewed date:07/15/2025 12:52:51 PM Interpretation: Performing Lab:[facility], [address] [place] [phone] Notes/Report: White Blood Count 9.1 4.8-10.8 X10*3/uL Red Blood Count 5.28 4.60-5.80 X10*6/uL Hemoglobin 14.9 14.0-18.0 g/dl Hematocrit 47.3 42.0-52.0 % Mean Corpuscular Volume 89.6 80.0-98.0 fL Mean Corpuscular Hemoglobin 28.2 27.0-33.0 pg Mean Corpuscular HGB Conc 31.5 31.0-36.0 g/dl Red Cell Distribution Width 14.4 11.0-16.0 % Platelet Count 210 160-400 X10*3/uL Mean Platelet Volume 11.8 9.4-12.4 fL Neutrophils Percent Auto 46.2 45-73 % Imm Gran Pct Auto 0.3 0.0-0.4 % Lymphocytes Percent Auto 36.5 20-40 % Monocytes Percent Auto 10.2 2-11 % Eosinophils Percent Auto 5.9 0-4 % Basophils Percent Auto 0.9 0-2 % NRBC Pct Auto 0.0 0.0-0.2 /100WBC Neutrophils Absolute Auto 4.2 2.0-8.3 x10*3/u L Imm Gran Abs Auto 0.03 0.00-0.03 X10*3/uL Lymphocytes Absolute Auto 3.3 1.2-4.9 X10*3/u L Monocytes Absolute Auto 0.9 0.1-1.2 X10*3/uL Eosinophils Absolute Auto 0.5 0.0-0.4 X10*3/u L Basophils Absolute Auto 0.1 0.0-0.2 X10*3/uL NRBC Abs Auto 0.000 0.0-0.012 X10*3/uL Lipid Panel Reviewed date:07/15/2025 12:47:42 PM Interpretation: Performing Lab:[facility], [address] [place] [phone] Notes/Report: Triglycerides 113 <150 mg/dL Desirable Triglyceride: less than 150 mg/dL Borderline High Triglyceride 150-199 mg/dL High Triglyceride: 200-499 mg/dL Very High Triglyceride: greater than or equal to 5OO mg/dL Cholesterol 125 <200 mg/dL Desirable Cholesterol: less than 200 mg/dL Borderline High Cholesterol: 200-239 mg/dL High Cholesterol: greater than 239 mg/dL LDL Cholesterol Calculated 54 <100 mg/dL Desirable LDL: less than 100 mg/dL Near Optimal/Above Optimal LDL: 110-129 mg/dL Borderline High LDL: 130-159 mg/dL High LDL: 160-189 mg/dL Very High LDL: greater than or equal to 190 mg/dL HDL Cholesterol 49 >40 mg/dL Desirable HDL: greater than 40 mg/dL Note: This HDL assay may give artificially low results in patients with liver disease. PSA,Total (Free>4and<10) Reviewed date:07/15/2025 12:47:06 PM Interpretation: Performing Lab:[facility], [address] [place] [phone] Notes/Report: PSA,Total (Free>4and<10) 2.58 0.00-4.00 ng/mL A Free PSA was not [...] Chemiluminescent Microparticle Immunoassay (CMIA) REASON FOR VISIT FASTING LABWORK Encounters Encounter Location Date Provider Diagnosis Jose G Schaefer MD [address] [place] [address] [place] [phone] 07/15/2025 Jose G Schaefer Blood tests for routine general physical examination Z00.00 and Elevated cholesterol E78.00 Assessments Encounter Date Diagnosis (ICD Code) Assessment Notes Treatment Notes Treatment Clinical Notes Section Notes 07/15/2025 Blood tests for routine general physical examination (ICD-10 - Z00.00) 07/15/2025 Elevated cholesterol (ICD-10 - E78.00) Plan Of Treatment Pending Test Test Name Order Date Comprehensive [place]. Panel Fast UA ClnCatch+Micro w/rflx Cult 07/15/2025 Next Appt Details Provider Name:Jose G Cooper ier, 07/24/2025 02:30:00 PM, [address] [place] [address], Suite [facility], [place], [place], [id number], Progress Notes * Luiz MARTINEZbrandonDOB:1965 (60 yo M)Acc No.[id number]:07/15/2025 Progress Note Patient: Kushal HUANG Provider: Duncan Schaefer MD :1965 A ge:60 Y S ex:Male Date:07/15/2025 Address:[address] [place], [place] [id number] Subjective: * Chief Complaints: * 1 . FASTING LABWORK. * Medical History: Objective: * Vitals: Assessment: * Assessment: 1. B lood tests for routine general physical examination - Z00.00 (Primary) 2 .?Elevated cholesterol - E78.00 Plan: * Treatment: 2. E levated cholesterol L AB: Comprehensive [place]. Panel Fast (Collection Date & Time - 07/15/2025 07:15 AM) L AB: UA ClnCatch+Micro w/rflx Cult (Collection Date & Time - 07/15/2025 07:15 AM) L AB: Complete Blood Count Auto Diff (Collection Date & Time - 07/15/2025 07:15 AM) L AB: Lipid Panel (Collection Date & Time - 07/15/2025 07:15 AM) L AB: PSA,Total (Free>4and<10) (Collection Date & Time - 07/15/2025 07:15 AM) * * The named appointment provid er may or may not be the originator of this progress note, and it is not deemed complete until electronically signed by the appointment provider. Sign off status: Pending * Provider: Duncan Schaefer MD Date: 1 Generated for Latesha gonzalez/Vikram/Debbieitting on: 03:32 PM EST
[2025-07-15 11:33] LABS: MANUAL DIFF FLAG NO
[2025-07-15 11:38] LABS: Hematocrit 47.3 % (42.0-52.0); Hemoglobin 14.9 g/dl (14.0-18.0); Imm Gran Abs Auto 0.03 X10*3/uL (0.00-0.03); Imm Gran Pct Auto 0.3 % (0.0-0.4); Lymphocytes Absolute Auto 3.3 X10*3/uL (1.2-4.9); Mean Corpuscular HGB Conc 31.5 g/dl (31.0-36.0); Mean Corpuscular Hemoglobin 28.2 pg (27.0-33.0); Mean Corpuscular Volume 89.6 fL (80.0-98.0); NRBC Abs Auto 0.000 X10*3/uL (0.0-0.012); NRBC Pct Auto 0.0 /100WBC (0.0-0.2); Platelet Count 210 X10*3/uL (160-400); Red Blood Count 5.28 X10*6/uL (4.60-5.80); White Blood Count 9.1 X10*3/uL (4.8-10.8)
[2025-07-15 11:50] LABS: Appearance Urine Clear; Glucose Urine UA Negative (Negative); PH 5.0 (5.0-9.0); Specific Gravity - Urine 1.020 (1.005-1.025)
[2025-07-15 12:15] LABS: Alanine Aminotransferase 34 U/L (0-40); Albumin Level 4.3 g/dL (3.5-5.0); Alkaline Phosphatase 78 U/L (39-117); Anion Gap 10 (12-20); Aspartate Amino Transferase 27 U/L (5-37); Blood Urea Nitrogen 25 mg/dL (9-16); Calcium 9.7 mg/dL (8.4-10.2); Carbon Dioxide 27 mmol/L (22-29); Chloride 109 mmol/L (96-108); Cholesterol 125 mg/dL (<200); Estimated Glomerular Filt Rate 58; HDL Cholesterol 49 mg/dL (>40); Potassium 4.2 mmol/L (3.3-5.1); Sodium 142 mmol/L (135-145); Total Protein 7.1 g/dL (6.5-8.0); Triglycerides 113 mg/dL (<150)
[2025-07-15 12:16] LABS: PSA,Total (Free>4and<10) 2.58 ng/mL (0.00-4.00)
--- OUTSIDE RECORDS SUMMARY | 2025-07-15 15:30 | XMS_ITS | Clinical Summary ---
Author Organization [facility] Address [address] [place] [phone] Phone Care Team Providers Care Section Gang Name Role Phone Unavailable Primary Care Provider Unavailabl e Encounters Date Type Department Care Team Description 04/21/2025 Orders Only [facility] [address] [place] [address] Homehealth, Interface ProviderMD from Last 3 Months [...] on file Insurance [employer] HMO POS EPO [facility] POS EPO [facility] POS EPO [facility]PO [facility] POS EPO [employer] [facility] [place] [id number] [place] Additional Source Comments The information contained in this document represents components of the legal health record. It is not the complete legal health record.[facility]
--- OUTSIDE RECORDS SUMMARY | 2025-07-15 15:30 | XMS_ITS | Encounter Summary ---
Author Organization [facility] Address [address] [place] [address] Care Team Providers Care Vallez Filter Operator Name Role Phone Jose G Schaefer MD Primary Care Provider [phone] Encounter Details Date Type Department Care Team (Late st Contact Info) Description 02/26/2025 Lab Requisition [facility] - Main Lab [address] [facility] [place] [address] Clint Kline MD [address] [place] [address] Elevated prostate specific antigen (PSA) [...] (02/26/2025) Final Diagnosis A. Prostate, Left Mid [place] Biopsy: - Benign prostatic tissue. B. Prostate, Left Lat [place] Biopsy: - Benign prostatic tissue. C. Prostate, Left Mid Mid Biopsy: - Benign prostatic tissue. D. Prostate, Left Lat [place] Biopsy: - Benign prostatic tissue. E. Prostate, Left Mid Base Biopsy: - Benign prostatic tissue. F. Prostate, Left Lat Base Biopsy: - Benign prostatic tissue. G. Prostate, Left Anterior Transition Zone at Mid[place] to [place] Biopsy: - Prostatic acinar adenocarcinoma (conventional type), grade group 2 (Parker score 3+4=7). - Percentage pattern 4: 10%. - Tumor continuously involves 55% of 1 of 1 tissue core. H. Prostate, Right Mid [place] Biopsy: - Benign prostatic tissue. I. Prostate, Right Lat [place] Biopsy: - Benign prostatic tissue. J. Prostate, Right Mid Mid Biopsy: - Benign prostatic tissue. K. Prostate, Right Lat Mid Biopsy: - Benign prostatic tissue. L. Prostate, Right Mid Base Biopsy: - Benign prostatic tissue. M. Prostate, Right Lat Base Biopsy: - Benign prostatic tissue. 02/28/2025 4:[address] [facility] at 1623 EDT Clinical Information Elevated PSA PSA: 3.37 (11/08/24) [id number] 02/28/2025 4:[address] [facility] Gross Description A. Prostate, Left Mid [place] Biopsy: Received, properly labeled, are two H and E stained slides and two unstained slides. B. Prostate, Left Lat [place] Biopsy: Received, properly labeled, are two H and E stained slides and two unstained slides. C. Prostate, Left Mid Mid Biopsy: Received, properly labeled, are two H and E stained slides and two unstained slides. D. Prostate, Left Lat [place] Biopsy: Received, properly labeled, are two H [...] Left Anterior Transition Zone at Mid[place] to [place] Biopsy: Received, properly labeled, are two H and E stained slides and two unstained slides. H. Prostate, Right Mid [place] Biopsy: Received, properly labeled, are two H and E stained slides and two unstained slides. I. Prostate, Right Lat [place] Biopsy: Received, properly labeled, are two H [...] unstained slides. /al 02/28/2025 4:[address] [facility] Disclaimer Unless otherwise specified, all tissue is 10% NB formalin fixed and paraffin embedded. Technical pathology services provided by [facility] at [address] [place] [address] [address], [place] [address] (CLIA #[id number]/Cassy Tran MD, Radius Corner Machine Operator) 02/28/2025 4:[address] [facility] Tissue Prostate / Unknown 02/26/20252024 [...] Result [facility] ([facility] [address] [place] [address], documented in this encounter Visit Diagnoses Diagnosis Elevated prostate specific antigen (PSA) documented in this encounter Care Teams Vallez Filter Operator Relationship Specialty Start Date End Date Jose G Schaefer MD [address] [place] [address] Drive [address] [place] [address] PCP - General Internal Medicine 02/26/25 documented as of this encounter
--- OUTSIDE RECORDS SUMMARY | 2025-07-15 15:31 | XMS_ITS | Patient Health Record ---
Author Organization [facility] Address [address] [place] [address] Care Team Providers Care Order Selector Name Role Phone Jose G Schaefer MD Primary Care Provider Bryce Moreau [phone] Allergies Allergen (clinical drug ingredient) Drug/Non Drug Allergy documented on EMR Reaction Allergy Type Onset Date Status nuts,seafood (uncoded) Unknown Allergy Active Results Component Value Reference Range Notes Pathology (Not yet reviewed by provider) Interpretation: Performing Lab:[facility], [address] [place] [phone] Notes/Report: Reason For Referral No Information Medications [...] status: 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 Section Notes: Nonsmoker; no sig alcohol Nonsmoker; no sig alcohol Nonsmoker; no sig alcohol Problems Problem Type SNOMED Code ICD Code Onset Dates Problem Status W/U Status Risk Notes Problem Screening for malignant neoplasm of colon (504782333) Encounter for screening for malignant neoplasm of colon (Z12.11) Active confirmed Problem History of adenomatous polyp of colon (195015041) History of adenomatous polyp of colon (Z86.010) Active confirmed Problem Screening for malignant neoplasm of rectum (302847374) Encounter for screening for malignant neoplasm of rectum (Z12.12) Active confirmed Problem Preprocedural examination (468105968268030) Preprocedural examination (Z01.818) Active confirmed Problem Family History of Cancer of Colon (Situation) (309800008) Family history of colon cancer (Z80.0) Active confirmed Problem Diverticulosis of colon (124873382) Diverticulosis of colon (K57.30) Active confirmed Problem Serrated polyp of colon (215595837) Serrated polyp of colon (K63.5) Active confirmed Vital Signs Temperature 97.5 degrees Fahrenheit 09/25/2024 Blood pressure diastolic 01 mm Hg 09/25/2024 Height 68.5 in 09/25/2024 Blood pressure systolic 001 mm Hg 09/25/2024 Weight 212.8 lbs 09/25/2024 BMI 31.88 kg/m2 09/25/2024 Procedures Procedure Date Ordered Date Performed Result Body Sit e COLONOSCOPY 09/25/2024 N/A Encounters Encounter Location Date Provider Diagnosis [facility] [address] [place] [id number] 01/24/2025 Bryce Bower [facility] [address] [place] [phone] 09/25/2024 Bryce Bower History of adenomato us polyp of colon Z86.010 ; Preprocedural examination Z01.818 ; Family history of colon cancer Z80.0 ; Encounter for screening for malignant neoplasm of colon Z12.11 and Serrated polyp of colon K63.5 [facility] [address] [place] [phone] 09/25/2024 Bryce Bower [facility] [address] [place] [phone] 01/24/2025 Bryce Bower Assessments Encounter Date Diagnosis [...] Insured Coverage Start Date Coverage End Date [facility] [address] [place], [place] [id number] [phone] KUSHAL SUAREZ Self - patient is the insured Medical (General) History Medical History History ICD Code Tubular adenoma removed in 1 995- F/U colonoscopies were neg. in 1996, 2005, 07/2010 Denies NE,DM,CVA,Lung disease,renal dise ase Colonoscopy in 01/2016- 1 tubular adenoma and 1 hyperplastic polyp removed High cholesterol Screening colonoscopy in Apr with removal of a small tubular adenoma and an approximately 1 cm sessile serrated polyp from the ascending colon Surgical History Surgery Date(Month/Year)
--- OUTSIDE RECORDS SUMMARY | 2025-07-15 15:31 | XMS_ITS | Clinical Summary ---
Author Organization [facility] Address [address] [place] [phone] Phone Care Team Providers Care Ring Striker Name Role Phone Jose G Schaefer MD [...] DTaP,Tdap,and Td Vaccines (1 - Tdap) 1984 Pneumococcal Vaccine: 50+ Ye ars (1 [...] patient's age to complete this topic Hepatitis B Vaccines Aged Out No long er eligible [...] complete this topic Insurance [employer] Care Teams Ring Striker Relationship Specialty Start Date End Date Jose G Schaefer MD [address] [place] [address] [address] [place], [place] [phone] PCP - General Internal Medicine 02/26/25
--- OUTSIDE RECORDS SUMMARY | 2025-07-15 15:31 | XMS_ITS | Patient Health Record ---
Author Organization Jose G Schaefer MD Address [address] [place], [place] [address] Care Team Providers Care Nude Model Name Role Phone Jose G Schaefer Primary Care Provider Allergies Allergen (clinical drug ingredient) Drug/Non Drug Allergy documented on EMR Reaction Allergy Type Onset Date Status raw eggs (uncoded) hives Allergy A ctive lobster, shellfish (uncoded) hives Allergy Active Nuts (uncoded) anaphylaxis Allergy Act ana Results Component Value Reference Range Notes Lipid Panel Reviewed date:10/28/2024 11:05:37 AM Interpretation: Performing Lab:[facility], [address] [place] [phone] Notes/Report: Triglycerides 118 <150 mg/dL Desirable Triglyceride: [...] Reviewed date:11/07/2024 08:04:03 AM Interpretation:JOSR 11/05 Performing Lab:[facility], [address] [place] [phone] Notes/Report: PSA,Total (Free>4and<10) 3.54 0.00-4.00 ng/mL A [...] Tatum Alinity i Chemiluminescent Microparticle Immunoassay (CMIA) Comprehensive Morton. Panel Fa (Not yet reviewed by provider) Interpretation: Performing Lab:[facility], [address] [place] [phone] Notes/Report: Sodium 142 135-145 mmol/L Potassium 4.2 [...] (Not yet reviewed by provider) Interpretation: Performing Lab:[facility], [address] [place] [phone] Notes/Report: Urine, Clean Catch Color Urine Yellow Appearance Urine Clear PH 5.0 5.0-9.0 Glucose Urine UA Negative Negative mg/dL Urine Blood Negative Negative Specific [place] - Urine 1.020 1.005-1.025 Urine Protein Negative [...] ff Reviewed date:07/15/2025 12:52:51 PM Interpretation: Performing Lab:[facility], [address] [place] [phone] Notes/Report: White Blood Count 9.1 4.8-10.8 X10*3/uL [...] 0.0-0.2 /100WBC Neutrophils Absolute Auto 4.2 2.0-8.3 x10*3/uL Imm Gran Abs Auto 0.03 0.00-0.03 X10*3/uL Lymphocytes Absolute Auto 3.3 1.2-4.9 X10*3/uL Monocytes Absolute Auto 0.9 0.1-1.2 X10*3/uL Eosinophils Absolute Auto 0.5 0.0-0.4 X10*3/uL Basophils Absolute Auto 0.1 0.0-0.2 X10*3/uL NRBC Abs Auto 0.000 0.0-0.012 X10*3/uL Lipid Panel Reviewed date:07/15/2025 12:47:42 PM Interpretation: Performing Lab:[facility], [address] [place] [phone] Notes/Report: Triglycerides 113 <150 mg/dL Desirable Triglyceride: [...] (Free>4and<10) Reviewed date:07/15/2025 12:47:06 PM Interpretation: Performing Lab:[facility], [address] [place] [phone] Notes/Report: PSA,Total (Free>4and<10) 2.58 0.00-4.00 ng/mL A [...] Panel Reviewed date:07/22/2024 05:45:39 PM Interpretation: Performing Lab:[facility], [address] [place] [phone] Notes/Report: Triglycerides 118 <150 mg/dL Desirable Triglyceride: [...] Pathology Reviewed date:01/28/2025 05:14:48 PM Interpretation: Performing Lab:[facility], [address] [place] [phone] Notes/Report: ------ Name: Kushal Martinez Age/Sex: 59/M : 1965 Unit#: [id number] Attend Dr: Bryce Bower MD Re01/24/25 Status : DEP SDC Location: [facility] Disch: ------ SPEC : [id number] RECD : 01/24/25 STATUS: BLU LEW NUM: [id number] [place]: 01/24/25 [facility] DR: Bryce Bower MD ENTERED: 01/24/25 SP TYPE: Surgical OTHR DR: Jose G [...] Received in 3 parts. A. Received in [employer] labeled ?ascending colon polyp? are 3 fragments of caldera-white soft tissue measuring 0.2 -0.5 cm in greatest dimension which are wrapped in lens paper and entirely submitted f or microscopic examination, 3 pieces in cassette A. B. Received in forma [employer] labeled ?transverse colon polyps? are fragments of pink-white and pink caldera tissue rang ing from 0.3-0.6 cm in greatest dimension, forming an aggregate measuring 1.5 x 1.2 x 0.2 cm which is wrapped in lens paper and entirely submitted for microscopic examinat ion, multiple pieces in cassette B. C. Received in forma [employer] labeled ?polyps at 20? are 2 fragments of caldera-white soft tissue measuring 0.1 and 0. 2 cm in greatest dimension which are wrapped in lens paper and entirely submitted for micros copic examination, 2 pieces in cassette C. ([facility]) CONTINUED ON NEXT PAGE ------ Name: Kushal Martinez Age/Sex: 59/M : 1965 Unit#: [id number] Attend Dr: Bryce Bower MD Re01/24/25 Status : [facility] Location: [facility] Disch: ------ SPEC : [id number] RECD : 01/24/25 STATUS: BLU LOUANN NUM: [id number] [place]: 01/24/25 [facility] DR: Bryce Bower MD ENTERED: 01/24/25- 34 SP TYPE: Surgical OTHR DR: Jose G Schaefer MD ORDERED: HE Stain/9, Gross Micro L4/3 IHC S/NG Disclaimer NOTE: Unless otherwi se stated, all tissue is formalin-fixed and paraffin-embedded. Some or all of the immunohistochemical tests reported herein may have been developed and their performance characteristics determined by [facility]. They have not been [...] Jose G Schaefer MD [facility] [address] [place] [address] Bryce Bower MD [facility] [address] [place] [address] ------ Signed (signature on file) Kaleb Stoner MD 01/27/25 1416 ------ END OF REPORT Complete Blood Count no Diff Reviewed date:04/10/2025 12:29:57 PM Interpretation: Performing Lab:[facility], [address] [place] [phone] Notes/Report: White Blood Count 7.5 4.8-10.8 X10*3/uL [...] INR Reviewed date:04/10/2025 12:29:36 PM Interpretation: Performing Lab:[address] [phone] Notes/Report: Prothrombin Time 11.3 10.9-12.4 [employer] [...] Panel Reviewed date:04/10/2025 12:29:28 PM Interpretation: Performing Lab:[facility], [address] [place] [phone] Notes/Report: Sodium 140 135-145 mmol/L Potassium 4.3 [...] Panel Reviewed date:05/02/2025 12:31:32 PM Interpretation: Performing Lab:[facility], [address] [place] [phone] Notes/Report: Triglycerides 158 <150 mg/dL Desirable Triglyceride: [...] Blood Reviewed date:05/20/2025 05:26:07 PM Interpretation: Performing Lab:[facility], [address] [place] [phone] Notes/Report: Glucose, Whole Blood 121 60-115 mg/dL METER # : [id number] Glucose, Whole Blood Reviewed date:05/20/2025 05:25:56 PM Interpretation: Performing Lab:[facility], [address] [place] [phone] Notes/Report: Glucose, Whole Blood 124 60-115 mg/dL METER # : [id number] Glucose, Whole Blood Reviewed date:05/21/2025 02:30:04 PM Interpretation: Performing Lab:[facility], [address] [place] [phone] Notes/Report: Glucose, Whole Blood 97 60-115 mg/dL METER # : [id number] Glucose, Whole Blood Reviewed date:05/21/2025 02:29:36 PM Interpretation: Performing Lab:[facility], [address] [place] [phone] Notes/Report: Glucose, Whole Blood 116 60-115 mg/dL METER # : [id number] Glucose, Whole Blood Reviewed date:05/23/2025 09:36:23 AM Interpretation: Performing Lab:[facility], [address] [place] [phone] Notes/Report: Glucose, Whole Blood 108 60-115 mg/dL METER # : [id number] Glucose, Whole Blood Reviewed date:06/23/2025 12:14:57 PM Interpretation: Performing Lab:[facility], [address] [place] [phone] Notes/Report: Glucose, Whole Blood 157 60-115 mg/dL METER # : [id number] Reason For Referral Reason PSA Elevation Diagnosis [...] 4 hrs for 30 days 03/25/2025 Active Metoprolol Succinate ER 50 MG 1 tablet Orally Once a day Active metFORMIN HCl 500 MG 2 tablet with a aisha l Orally twice a day for 90 days Active Aspirin 81 81 MG 1 tablet [...] Risk Notes Problem Malignant tumor of prostate (710871572) Prostate cancer (C61) Active confirmed Problem Atherosclerotic heart disease of [place] coronary artery without angina pectoris (238124276059410) Coronary artery arteriosclerosis (I25.10) Active confirmed Problem Asthma (225752886) Asthma (J45.909) Active conf irmed Problem 427372530 Elevated cholesterol/high density lipoprotein ratio (E78.6) Active confirmed Problem 96654890 Elevated cholesterol (E78.00) Active confirmed Problem History of coronary artery bypass grafting (636098654) History of coronary artery bypass graft x [...] G Schaefer MD [address] [place] [id number] 10/28/2024 Jose G Schaefer Elevated cholesterol E78.00 and PSA elevation R97.20 Jose G Schaefer MD [address] [place] [id number] 07/15/2025 Jose G Schaefer Blood tests for rout ine general physical examination Z00.00 and Elevated cholesterol E78.00 Jose G Schaefer MD [address] [place] [id number] 07/22/2024 Jose G Scheafer Elevated cholesterol E78.00 ; Annual physical exam Z00.00 ; PSA elevation R97.20 ; Colon cancer screening Z12.11 and Depression screening Z13.31 Jose G Schaefer MD [address] [place] [id number] 11/05/2024 Jose G Schaefer Elevated PSA R97.20 Jose G Schaefer MD [address] [place] [id number] 03/25/2025 Jose G Schaefer Asthma J45.909 and Prostate cancer C61 Jose G Schaefer MD [address] [place] [id number] 03/28/2025 Jose G Schaefer Shortness of breath R06.02 and Prostate cancer C61 Jose G Schaefer MD [address] [place] [id number] 05/02/2025 Jose G Schaefer Coronary artery arteriosclerosis I25.10 and History of coronary artery bypass graft x 3 Z95.1 Jose G Schaefer MD [address] [place] [id number] 03/28/2025 Jose G Schaefer MD [address] [place] [id number] 12/27/2024 Jose G Schaefer MD [address] [place] [id number] 03/11/2025 Jose G Schaefer MD [address] [place] [id number] 04/10/2025 Jose G Schaefer MD [address] [place] [id number] 04/24/2025 Jose G Schaefer MD [address] [place] [id number] 06/26/2025 Jose G Schaefer Assessments Encounter Date Diagnosis (ICD Code) Assessment Notes Treatment Notes Treatment Clinical Notes Section Notes 10/28/2024 Elevated cholesterol (ICD-10 - E78.00) 07/15/2025 Blood tests for routine general physical examination (ICD-10 - Z00.00) 07/22/2024 Elevated cholesterol (ICD-10 - E78.00) stable, [...] used his inhaler. / order faxed to [facility] dept 05/02/2025 Coronary artery arteriosclerosis (ICD-10 [...] maybe 10/28/2024 PSA elevation (ICD-10 - R97.20) 07/15/2025 Elevated cholesterol (ICD-10 - E78.00) 07/22/2024 PSA elevation (ICD-10 - R97.20) will continue to monitor, labs pending 03/28/2025 Prostate cancer (ICD-10 - C61) we discussed the outcome of his visit with the urologist and i have suggested a vist to the [facility] to gain a better understanding of the options 07/22/2024 Colon cancer screening (ICD-10 - Z12.11) guaiac negative 07/22/2024 Depression screening (ICD-10 - Z13.31) negative screen Plan Of Treatment Pending Test Test Name Order Date Electrocardiogram (EKG) 08/23/2019 Comprehensive Morton. Panel Fast CA stress test 03/28/2025 UA ClnCatch+Micro w/rflx Cult 07/15/2025 Next Appt Details Provider Name:Jose G hilton, 07/24/2025 02:30:00 PM, [address] [place] [address], [address], [place], [place], [phone], Insurance Providers Payer Name Payer Address Payer Phone Subscriber Number Group Number Insured Name Patient Relationship to Insured Coverage Start Date Coverage End Date [employer] Choice [address] [address] [place] [address] [id number] Kushal Martinez Self - patient is the insured
--- OUTSIDE RECORDS SUMMARY | 2025-07-15 15:32 | XMS_ITS | Clinical Summary ---
Author Organization [facility] Address [address] [place] [address] Care Team Providers Care Business Banking Representative Name Role Phone [employer] [facility] Primary Care Provider Allergies Active Allergy Reactions Criticality Noted Date Comments Lobster Anaphylaxis High 07/09/2025 Peanut Anaphylaxis High 07/09/2025 Medications diphenhydrAMINE (BENADRYL) 25 mg capsule Take 1 capsule (25 mg total) by mouth every 6 hours as needed for itching or hives. 20 capsule 5 Active EPINEPHrine (EPIPEN) 0.3 mg/0.3 mL injection syringe Inject 1 Syringe (0.3 mg total) into the outer thigh muscle as directed as needed for anaphylaxis. 2 each 5 Active predniSONE (DELTASONE) 20 mg tablet Take 3 tablets (60 mg total) by mouth once a day for 4 days. First dose provided in emergency department. 5 doses total. Next dose is due 07/10 evening time before bed. 12 tablet 5 07/14/20 25 Encounters Date Type Department Care Team Description 07/09/2025 10:45 PM EST - 07/10/2025 3:18 AM EST Emergency [facility] Emergency Department [address] [place] [address] Roland Virk MD Anaphylaxis, initial encounter (Primary Dx); Allergic reaction, initial encounter Discharge Disposition: Home or Self Care (01) from Last 3 Months Social History Tobacco Use Types Packs/Day Years Used Date Smoking Tobacco: Never Assessed Sex and Gender Information Value Date Recorded Sex Assigned at Male 07/10/2025 12:32 AM EST Legal Sex Male 10:40 PM EST Gender Identity Not on file Sexual Orientation Not on file Last Filed Vital Signs Vital Sign Reading [...] - - Body Mass Index - - Plan of Treatment Health Maintenance Due Date Last Done Comments Cologuard 1965 Colon Cancer Screening 1965 Colonoscopy 1965 FOBT / Fit Test 1965 HIV Screening 1965 Hepatitis C Screening 1965 Sigmoidoscopy 1965 DTaP,Tdap,and Td Vaccines (1 - Tdap) 1987 Pneumococcal Vaccine: 50+ Ye ars (1 of 1 - PCV) 2015 Zoster Vaccines (1 of 2) 2015 Alcohol/Substance Use Screening 07/17/2024 Depression Screening and Follow-Up 07/17/2024 Social Drivers of Health Sanjuana ual Screening 07/17/2024 Influenza Vaccine (#1) 2025 COVID-19 Vaccine (1 - 2024-2 6 season) 2025 RSV Vaccine (60+ years old a nd patients) (1 - 1-dose 75+ series) 2040 Hepatitis B Vaccines Aged Out No long er eligible based on patient's age to complete this topic Procedures * Due to [employer] law, this organization might not be sharing negative HIV tests. Procedure Name Priority Date/Time Associated Diagnosis Comments ECG 12-LEAD Routine 07/09/2025 10:46 PM EST from Last 3 Months Results * Due to [place] [employer] law, this organization might not be sharing negative HIV tests. * ECG 12 lead (07/09/2025 10:46 PM EST) Ventricular Rate EKG 66 BPM MUSE EKG Atrial Rate 66 BPM MUSE EKG NC Interval 140 ms MUSE EKG QRS Interval 74 ms MUSE EKG QT Interval 442 ms MUSE EKG QTC Interval 463 ms MUSE EKG P [place] 46 degrees MUSE EKG R [place] -3 degrees MUSE EKG T Wave [place] 41 degrees MUSE EKG 07/09/2025 10:4 6 PM EST 07/11/2025 9:52 AM EST Impressions MUSE EKG - 07/11/2025 9:52 AM EST Normal sinus rhythm Poor R-wave progression Nonspecific T wave abnormality Borderline QT interval No previous ECGs available Confirmed by Maki Will ([id number]) on 07/11/2025 9:52:47 AM Narrative Procedure Note Maki Will MD - 07/11/2025 IMPRESSION: Normal sinus rhythm Poor R-wave progression Nonspecific T wave abnormality Borderline QT interval No previous ECGs available Confirmed by Maki Will ([id number]) on 07/11/2025 9:52:47 AM Ribber Jovan ELIZABETH ECG ORDERABLES Final Resu lt MUSE EKG from Last 3 Months Insurance [employer] Care Teams Business Banking Representative Relationship Specialty Start Date End Date [facility] [address] [place] [address] PCP - General 07/09/25
== END 2025-07-15 11:29 | disposition home or self-care (01) ==
LOC: HO.LNP 11:28
PROVIDERS: Visit Provider Internal Medicine
DX: Z00.00 Encounter for general adult medical examination without abnormal findings (principal); Z12.5 Encounter for screening for malignant neoplasm of prostate; E78.00 Pure hypercholesterolemia, unspecified
CPT/HCPCS: 80053; 80061; 81001; 84153; 85025